=== PATIENT | male | born 1965 | race Caucasian/White ===

== ENCOUNTER 2016-12-30 15:13 | Emergency (ER) | payer MEDICAID ==
[2016-12-30 15:29] VITALS: BP 134/93
--- NOTE | 2016-12-30 16:15 | ED Physician Documentation ---
PD HPI UPPER EXT INJURY - Stated complaint Stated Complaint: R HAND INJ - Chief complaint Chief Complaint: Ext Problem - History obtained from History obtained from: Patient - History of Present Illness Location: Right, Hand Type of injury: Foreign body (he sat on wooden chair and the handle broke so his hand slid down and he got splinter into dorsal thenar area, got out a splinter but it stays tender and swollen, with some drainage now, so concerned about residual FB.) Where injury occurred: Other (friends house) Timing - onset: How many weeks ago (1) Timing - details: Abrupt onset, Still present Associated symptoms: Swelling, Other (some purulent drainage the past 1-2 days.) . No: Weakness, Numbness Recently seen: Not recently seen Review of Systems Constitutional: denies: Fever, Chills Neurologic: denies: Focal weakness, Numbness PD PAST MEDICAL HISTORY - Past Medical History Cardiovascular: Hypertension Respiratory: Asthma, Other Neuro: Seizure disorder Endocrine/Autoimmune: None GI: GERD, Other : Incontinence HEENT: Chronic sinusitis Psych: Depression, Anxiety, Bipolar disorder, Post traumatic stress disorder, Claustrophobia Musculoskeletal: Other Derm: Eczema, Rosacea - Past Surgical History Past Surgical History: Yes General: Hiatal hernia repair - Present Medications Home Medications: Ambulatory Orders Medication Instructions Recorded Confirmed Sertraline HCl [Zoloft] 50 mg PO DAILY 04/01/15 12/30/16 Indomethacin 25 mg PO DAILY 06/25/15 12/30/16 Albuterol Sulfate [Proair Hfa 2 puffs IH QID #1 hfa.aer.ad 07/17/15 12/30/16 Inhaler] Albuterol Sulfate [Ventolin Hfa] 18 gm IH Q4HR PRN #1 applic 10/29/15 12/30/16 Risperidone [Risperdal M-Tab] 0 mg DAILY 12/30/16 12/30/16 Sulfamethox/Trimeth 800/160 1 each PO BID #10 tablet 12/30/16 [Bactrim Ds 800/160] - Allergies Allergies/Adverse Reactions: Allergies Allergy/AdvReac Type Severity Reaction Status Date / Time No Known Drug Allergies Allergy Verified 12/30/16 15:29 - Social History Does the pt smoke?: No Smoking Status: Never smoker Does the pt drink ETOH?: Yes Does the pt have substance abuse?: Yes - Immunizations Immunizations are current?: No Immunizations: TDAP >10years/unknown - POLST Patient has POLST: No PD ED PE NORMAL - Vitals Vital signs reviewed: Yes - General General: Alert and oriented X 3, No acute distress, Well developed/nourished - Derm Derm: Normal color, Warm and dry - Extremities Extremities: Other (right dorsal thenar area with focal firm swelling c/w likely FB. There is small puncture hole with scant amount purulent drainage. Mild redness. The area of swelling is aobut 1.5x.4 cm.) - Neuro Neuro: No motor deficit, No sensory deficit Results - Vitals Vitals: Oxygen O2 Source Room air Procedures - FB removal FB location: Subcutaneous FB removal preparation: Local anesthesia-specify (lido and marcaine with epi.) Removal method: Irrigated/flushed, Foreceps, Incision FB removal aftercare: No complications, Patient tolerated well, Removed successfully (wooden chunk (better than a splinter).) Departure - Departure Disposition: 01 Home, Self Care Clinical Impression: Foreign body (FB) in soft tissue, Wound infection Condition: Stable Record reviewed to determine appropriate education?: Yes Instructions: ED Foreign Body Soft Tissue Removed Follow-Up: Domonique Chu ARNP [Primary Care Provider] - Prescriptions: Sulfamethox/Trimeth 800/160 [Bactrim Ds 800/160] 1 each PO BID #10 tablet Comments: Soak the hand in warm water couple times a day. Apply dressings. Do not put ointment on it so that it can drain if it wants to. Bactrim twice daily for 4- 5 days because of the infection. Recheck if not better over the next several days. Tylenol or ibuprofen if needed for pain. Discharge Date/Time: 12/30/16 17:16
[2016-12-30] MEDS ORDERED: SULFAMETH/TRIMETH DS 800/160 MG TABLET PO STA (17:05)
[2016-12-30] MEDS ORDERED: SULFAMETH/TRIMETH DS 800/160 MG TABLET PO ONE (17:13)
== END 2016-12-30 17:16 | disposition home or self-care (01) ==
LOC: ED 15:13
DX: S60.551A Superficial foreign body of right hand, initial encounter (principal); L08.9 Local infection of the skin and subcutaneous tissue, unspecified; W45.8XXA Other foreign body or object entering through skin, initial encounter; I10 Essential (primary) hypertension
CPT/HCPCS: 10120; 99283; A9270; 10060

== ENCOUNTER 2017-12-27 08:00 | Outpatient (CLI) | payer MEDICAID ==
[2017-12-27 19:31] LABS: BILIRUBIN,URINE NEGATIVE (NEGATIVE); GLUCOSE, URINE (UA) NEGATIVE (NEGATIVE); KETONES,URINE (UA) NEGATIVE (NEGATIVE); LEUKOCYTE ESTERASE, URINE MODERATE (NEGATIVE); NITRITE,URINE POSITIVE (NEGATIVE); OCCULT BLOOD,URINE TRACE-INTA (NEGATIVE); PH,URINE 6.5 PH (5.0-7.5); PROTEIN,URINE NEGATIVE (NEGATIVE); UROBILINOGEN,URINE 0.2 (NORMAL) E.U./dL (NORMAL)
[2017-12-27 19:33] LABS: CLARITY,URINE CLOUDY (CLEAR)
[2017-12-27 19:53] LABS: BACTERIA,URINE Moderate /HPF (None Seen); RBC,URINE 0-5 /HPF (0-5); SQUAMOUS EPITHELIAL CELL,UR NONE SEEN (<= Few); WBC CLUMPS,URINE PRESENT
== END 2017-12-27 08:01 | disposition home or self-care (01) ==
LOC: LAB.R 08:00
PROVIDERS: ATTEND Nurse Practitioner Family
DX: R32 Unspecified urinary incontinence (principal); N39.0 Urinary tract infection, site not specified
CPT/HCPCS: 81001; 87077; 87086; 87181

== ENCOUNTER 2018-08-24 10:27 | Outpatient (CLI) | payer MEDICAID | END 2018-08-24 10:28 | disposition home or self-care (01) | LOC: LAB.F 10:27 | PROVIDERS: ATTEND Urology | DX: R68.89 Other general symptoms and signs (principal); R39.12 Poor urinary stream; R39.9 Unspecified symptoms and signs involving the genitourinary system | CPT/HCPCS: 36415; 84153 ==

== ENCOUNTER 2019-01-23 13:01 | Outpatient (CLI) | payer MEDICAID ==
[2019-01-23 20:51] LABS: ALBUMIN 4.2 g/dL (3.2-5.5); ALBUMIN/GLOBULIN RATIO 1.6 (1.0-2.2); ALKALINE PHOSPHATASE 55 IU/L (42-121); ALT ALANINE AMINOTRANSFERASE 14 IU/L (10-60); AST ASPARTATE AMINOTRANSFERASE 15 IU/L (10-42); BILIRUBIN,TOTAL 1.2 mg/dL (0.2-1.0); BUN - BLOOD UREA NITROGEN 22 mg/dL (6-20); CALCIUM 9.1 mg/dL (8.5-10.3); CARBON DIOXIDE - CO2 29 mmol/L (21-32); CHLORIDE 106 mmol/L (101-111); CHOL/HDL RATIO 5.1 (<5.0); CHOLESTEROL 189 mg/dL; CREATININE 0.8 mg/dL (0.6-1.2); GFR - MDRD 100 (>89); GLUCOSE 113 mg/dL (70-100); HDL CHOLESTEROL 37 mg/dL; LDL CHOLESTEROL,CALCULATED 134 mg/dL; LDL/HDL RATIO 3.6 (<3.6); SODIUM 142 mmol/L (135-145); TOTAL PROTEIN 6.9 g/dL (6.7-8.2); URIC ACID 8.2 mg/dL (2.6-7.2); VLDL CHOLESTEROL 18 mg/dL
== END 2019-01-23 13:02 | disposition home or self-care (01) ==
LOC: LAB.S 13:01
PROVIDERS: ATTEND Internal Medicine
DX: Z00.00 Encounter for general adult medical examination without abnormal findings (principal); M10.9 Gout, unspecified
CPT/HCPCS: 36415; 80053; 80061; 83721; 84550

== ENCOUNTER 2020-05-10 12:59 | Outpatient (CLI) | payer OTHER, MEDICAID ==
--- NOTE | 2020-05-10 14:59 | XRAY Report ---
PROCEDURE: Hip w/Pelvis 1V RT INDICATIONS: HIP PAIN TECHNIQUE: AP pelvis with lateral view(s) of the right hip(s). COMPARISON: CT abdomen pelvis 06/07/2015 FINDINGS: Bones: No fractures or dislocations. Pelvic ring appears intact. No suspicious bony lesions. As i dentified on prior exam, there is severe joint space narrowing with subchondral sclerosis and periart icular lucencies within the right hip. Paratracheal or osteophytes are present. There is a remodeled appearance with flattening of the femoral head. Overall appearance is relatively stable compared to p rior exam. [id number] degenerative joint space narrowing is present within the left hip. Soft tissues: The visualized bowel gas pattern is normal. No suspicious soft tissue calcifications. IMPRESSION: 1. Remodeled appearance of the right femoral head suspected to be chronic with superimposed areas of severe degenerative change/avascular necrosis. Overall appearance is relatively stable compared to 20 16. Reviewed by: Yumiko Salgado MD on 05/10/2020 2:58 PM PST Approved by: Yumiko Salgado MD on 05/10/2020 2:58 PM PST Station ID: [id number]
--- NOTE | 2020-05-10 15:58 | XRAY Report ---
PROCEDURE: Hand 2 View RT INDICATIONS: HAND PAIN TECHNIQUE: 2 views of the hand(s) acquired. COMPARISON: None FINDINGS: Bones: No fractures or dislocations. No suspicious bony lesions. Moderate first DIP degenerative n arrowing is present. No visualized erosions. Minimal scattered PIP narrowing is present. Soft tissues: No suspicious soft tissue calcifications. IMPRESSION: Scattered IP degenerative narrowing with arthritis. No erosions. Reviewed by: Yumiko Salgado MD on 05/10/2020 3:57 PM PST Approved by: Yumiko Salgado MD on 05/10/2020 3:57 PM PST Station ID: [id number]
== END 2020-05-10 13:00 | disposition home or self-care (01) ==
LOC: DI 12:59
DX: M25.551 Pain in right hip (principal); M79.641 Pain in right hand; M19.041 Primary osteoarthritis, right hand

== ENCOUNTER 2020-12-26 13:35 | Outpatient (CLI) | payer MEDICAID ==
[2020-12-26 19:49] LABS: BASOPHILS % (AUTO) 0.5 %; EOSINOPHILS # (AUTO) 0.1 10^3/uL (0.0-0.7); EOSINOPHILS % (AUTO) 1.2 %; HCT - HEMATOCRIT 51.8 % (42.0-52.0); LYMPHOCYTES # (AUTO) 1.7 10^3/uL (1.5-3.5); LYMPHOCYTES % (AUTO) 21.6 %; MEAN CORPUSCULAR HEMOGLOBIN 31.3 pg (27.0-31.0); MEAN CORPUSCULAR HGB CONC 32.8 g/dL (32.0-36.0); MEAN CORPUSCULAR VOLUME 95.2 fL (80.0-94.0); MEAN PLATELET VOLUME 11.1 fL (7.4-11.4); MONOCYTES # (AUTO) 0.5 10^3/uL (0.0-1.0); MONOCYTES % (AUTO) 6.1 %; NEUTROPHILS # (AUTO) 5.4 10^3/uL (1.5-6.6); NEUTROPHILS % (AUTO) 70.2 %; PLT - PLATELET COUNT 202 10^3/uL (130-450); RED BLOOD COUNT 5.44 10^6/uL (4.70-6.10); RED CELL DISTRIBUTION WIDTH 12.6 % (12.0-15.0); WHITE BLOOD COUNT 7.7 x10^3/uL (4.8-10.8)
[2020-12-26 20:03] LABS: ALBUMIN 4.3 g/dL (3.2-5.5); ALBUMIN/GLOBULIN RATIO 1.5 (1.0-2.2); CALCIUM 9.2 mg/dL (8.5-10.3); CREATININE 1.1 mg/dL (0.6-1.2); TOTAL PROTEIN 7.2 g/dL (6.7-8.2)
== END 2020-12-26 13:36 | disposition home or self-care (01) ==
LOC: LAB.S 13:35
PROVIDERS: ATTEND Internal Medicine
DX: Z00.00 Encounter for general adult medical examination without abnormal findings (principal); Z12.5 Encounter for screening for malignant neoplasm of prostate
CPT/HCPCS: 36415; 80053; 84153; 85025

== ENCOUNTER 2021-11-28 10:55 | Outpatient (CLI) | payer MEDICAID ==
[2021-11-28 15:47] LABS: ALBUMIN 3.9 g/dL (3.2-5.5); ALBUMIN/GLOBULIN RATIO 1.2 (1.0-2.2); ALKALINE PHOSPHATASE 53 IU/L (42-121); ALT ALANINE AMINOTRANSFERASE 11 IU/L (10-60); AST ASPARTATE AMINOTRANSFERASE 16 IU/L (10-42); BILIRUBIN,TOTAL 0.7 mg/dL (0.2-1.0); BUN - BLOOD UREA NITROGEN 16 mg/dL (6-20); CARBON DIOXIDE - CO2 26 mmol/L (21-32); CHLORIDE 103 mmol/L (101-111); CHOL/HDL RATIO 5.7 (<5.0); CHOLESTEROL 232 mg/dL; CREATININE 0.9 mg/dL (0.6-1.2); GFR - MDRD 87 (>89); GLUCOSE 89 mg/dL (70-100); HDL CHOLESTEROL 41 mg/dL; LDL CHOLESTEROL,CALCULATED 165 mg/dL; POTASSIUM 4.3 mmol/L (3.5-5.0); SODIUM 137 mmol/L (135-145); TOTAL PROTEIN 7.1 g/dL (6.7-8.2); TRIGLYCERIDES 130 mg/dL; VLDL CHOLESTEROL 26 mg/dL
[2021-11-28 15:54] LABS: THYROID STIMULATING HORMONE 2.79 uIU/mL (0.34-5.60)
== END 2021-11-28 10:56 | disposition home or self-care (01) ==
LOC: LAB.S 10:55
PROVIDERS: ATTEND Registered Nurse
DX: Z79.899 Other long term (current) drug therapy (principal); Z13.220 Encounter for screening for lipoid disorders; Z12.5 Encounter for screening for malignant neoplasm of prostate; Z13.29 Encounter for screening for other suspected endocrine disorder
CPT/HCPCS: 36415; 80050; 80061; 83721; 84153

== ENCOUNTER 2023-04-19 08:00 | Outpatient (CLI) | payer MEDICAID | END 2023-04-19 23:59 | disposition home or self-care (01) | LOC: LAB.S 08:00 | PROVIDERS: ATTEND Emergency Medicine | DX: L02.415 Cutaneous abscess of right lower limb (principal) | CPT/HCPCS: 87070; 87077; 87181; 87205 ==

== ENCOUNTER 2023-04-26 09:51 | Outpatient (CLI) | payer MEDICAID | END 2023-04-26 23:59 | disposition left against medical advice (07) | LOC: EMS 09:51 | DX: L08.9 Local infection of the skin and subcutaneous tissue, unspecified (principal) ==

== ENCOUNTER 2023-07-18 22:35 | Outpatient (CLI) | payer MEDICAID | END 2023-07-18 23:59 | disposition critical access hospital (66) | LOC: EMS 22:35 | DX: M79.89 Other specified soft tissue disorders (principal); R23.8 Other skin changes; M79.662 Pain in left lower leg | CPT/HCPCS: A0425; A0429; A0999 ==

== ENCOUNTER 2023-07-18 23:07 | Emergency (ER) | payer MEDICAID ==
--- NOTE | 2023-07-18 23:45 | ED Physician Documentation ---
PD HPI SKIN - Stated complaint Stated Complaint: L LEG WOUND - Chief complaint Chief Complaint: Ext Problem - History obtained from History obtained from: Patient - Additional information Additional information: Patient is a 58-year-old male presenting for evaluation of a wound to the back of his left leg that he has noticed for the last month. The patient states that he has not had time to come get it evaluated before tonight. 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 He tells me about staying at the [facility] and eating [employer] with his cousin. He denies any fever. He is unsure of how he got the wound. He denies any significant worsening tonight. He did last see his primary care doctor 3 months ago. He reports having swelling always in the left leg which is unchanged today. He did previously have a wound to the anterior of the same leg which was treated with antibiotics back in March and that did heal.Denies fever, falls. Denies history of diabetes. Review of Systems Constitutional: denies: Fever Cardiac: denies: Chest pain / pressure Respiratory: denies: Dyspnea GI: denies: Abdominal Pain Skin: reports: Lesions Musculoskeletal: reports: Extremity swelling PD PAST MEDICAL HISTORY - Past Medical History Cardiovascular: Hypertension Respiratory: Asthma, Other Endocrine/Autoimmune: None GI: GERD, Other : Incontinence HEENT: Chronic sinusitis Psych: Depression, Anxiety, Bipolar disorder, Post traumatic stress disorder, Claustrophobia Musculoskeletal: Other Derm: Eczema, Rosacea - Past Surgical History Past Surgical History: Yes General: Hiatal hernia repair - Present Medications Home Medications: Ambulatory Orders Medication Instructions Recorded Confirmed Sertraline HCl [Zoloft] 50 mg PO DAILY 04/01/15 12/30/16 Indomethacin 25 mg PO DAILY 06/25/15 12/30/16 Albuterol Sulfate [Proair Hfa 2 puffs IH QID #1 hfa.aer.ad 07/17/15 12/30/16 Inhaler] Albuterol Sulfate [Ventolin Hfa] 18 gm IH Q4HR PRN #1 applic 10/29/15 12/30/16 Sulfamethox/Trimeth 800/160 1 each PO BID #10 tablet 12/30/16 [Bactrim Ds 800/160] risperiDONE [Risperdal M-Tab] 0 mg DAILY 12/30/16 12/30/16 Sulfamethox/Trimeth 800/160 1 each PO BID #14 tablet 07/18/23 [Bactrim Ds 800/160] cephALEXin [Keflex] 500 mg PO Q6H #28 cap 07/18/23 - Allergies Allergies/Adverse Reactions: Allergies Allergy/AdvReac Type Severity Reaction Status Date / Time No Known Drug Allergies Allergy Verified 07/18/23 23:14 - Social History Does the pt smoke?: No Smoking Status: Never smoker Does the pt drink ETOH?: Yes Does the pt have substance abuse?: Yes Substance Use and Type: Marijuana - Immunizations Immunizations are current?: No Immunizations: TDAP >10years/unknown - POLST Patient has POLST: No PD ED PE NORMAL - General General: Alert and oriented X 3, No acute distress, Well developed/nourished - HEENT HEENT: Atraumatic - Neck Neck: Supple, no meningeal sign - Cardiac Cardiac: RRR, Strong equal pulses - Respiratory Respiratory: No respiratory distress, Clear bilaterally - Derm Derm: Warm and dry - Extremities Extremities: Other (Bilateral lower extremity swelling, left greater than right which patient states is chronic for him; Venous stasis changes bilaterally, 1 cm circular and shallow ulceration to left posterior calf with surrounding erythema; No fluctuance) - Neuro Neuro: Alert and oriented X 3, No motor deficit, No sensory deficit, Normal speech Results - Vitals Vitals: Vital Signs - 24 hr 07/18/23 07/18/23 07/18/23 23:10 23:19 23:56 Temperature 36.4 C L 36.5 C 36.5 C Heart Rate 99 99 88 Respiratory 20 20 18 Rate Blood Pressure 163/94 H 163/94 H 150/88 H O2 Saturation 94 94 96 Oxygen O2 Source Room air PD Medical Decision Making - ED course ED course: Patient presenting for evaluation of wound to the left posterior calf that has been present for at least a month. Has a superficial ulceration with findings concerning for infection. Patient is otherwise well-appearing denies any worsening or recently but that this evening was convenient for him which is why he presented to the emergency department. Vital signs are stable he does not appear septic. Wound culture was obtained. No signs of abscess. Will start patient on Bactrim and Keflex. Patient states that swelling in his leg is unchanged and that this has been chronic for him. Understands importance of close follow-up with primary care provider as well as concerning symptoms to return for. Departure - Departure Disposition: 01 Home, Self Care Clinical Impression: Leg wound, left Condition: Stable Instructions: ED Infec Skin Cellulitis Prescriptions: Sulfamethox/Trimeth 800/160 [Bactrim Ds 800/160] 1 each PO BID #14 tablet cephALEXin [Keflex] 500 mg PO Q6H #28 cap Comments: The wound on your left leg appears to have an infection. We have sent a culture and I am starting you on 2 antibiotics. We will notify you if you need to take any different antibiotics. I would recommend close follow-up with your primary care doctor to make sure that this is healing. You may need further therapies such as referral to the wound care clinic. Return to the ER with any worsening such as increased swelling or pain, fevers or any other concerns. I have sent your prescriptions to [facility] in [place]. Forms: PCP List Discharge Date/Time: 07/18/23 23:56
[2023-07-18] MEDS: SULFAMETH/TRIMETH DS 800/160 MG TABLET PO STA (23:54)
[2023-07-18] MEDS: cephALEXin 250 MG CAPSULE PO STA (23:54)
[2023-07-19 00:12] VITALS: BP 150/88; O2SAT 96
== END 2023-07-18 23:56 | disposition home or self-care (01) ==
LOC: EDUNIT# → ED 23:07
DX: L97.829 Non-pressure chronic ulcer of other part of left lower leg with unspecified severity (principal); I10 Essential (primary) hypertension; J45.909 Unspecified asthma, uncomplicated; Z79.899 Other long term (current) drug therapy
CPT/HCPCS: 87070; 87205; 99283; 99284; A9270

== ENCOUNTER 2023-07-26 04:56 | Outpatient (CLI) | payer MEDICAID | END 2023-07-26 23:59 | disposition left against medical advice (07) | LOC: EMS 04:56 | DX: L03.116 Cellulitis of left lower limb (principal) ==

== ENCOUNTER 2023-07-26 05:45 | Outpatient (CLI) | payer MEDICAID | END 2023-07-26 23:59 | disposition critical access hospital (66) | LOC: EMS 05:45 | DX: L03.116 Cellulitis of left lower limb (principal) | CPT/HCPCS: A0425; A0429; A0999 ==

== ENCOUNTER 2023-07-26 06:22 | Emergency (ER) | payer MEDICAID ==
--- NOTE | 2023-07-26 06:32 | ED Physician Documentation ---
PD HPI WOUND RECHECK - Stated complaint Stated Complaint: L LEG WOUND - Histroy obtained from History obtained from: Patient - Additional information Additional information: Patient is a 58-year-old male presenting for reevaluation of a wound to his left leg. Wound has been there for at least a month and he was seen by myself in the emergency department on July 17. At that time a culture was obtained and he was discharged on Bactrim and Keflex. Based on the culture results, the plan was to change his antibiotic to penicillin and he was called 4 days ago to tell him to stop taking the other 2 antibiotics and prescribed penicillin. He did brain picker this prescription but then had trepidation about taking the antibiotic as a caregiver of a neighbor told him he should not take this antibiotic if he had been drinking. Patient states that they had already had a few beers and so did not want to take the antibiotic. Patient states he is unclear as to why his antibiotic was changed because he felt like his wound was getting better while he was on the 2 antibiotics. He denies any worsening in the wound today. He denies fever. Review of Systems Constitutional: denies: Fever Cardiac: denies: Chest pain / pressure Respiratory: denies: Dyspnea Skin: reports: Other (Left leg wound) PD PAST MEDICAL HISTORY - Past Medical History Cardiovascular: Hypertension Respiratory: Asthma, Other Endocrine/Autoimmune: None GI: GERD, Other : Incontinence HEENT: Chronic sinusitis Psych: Depression, Anxiety, Bipolar disorder, Post traumatic stress disorder, Claustrophobia Musculoskeletal: Other Derm: Eczema, Rosacea - Past Surgical History Past Surgical History: Yes General: Hiatal hernia repair - Present Medications Home Medications: Ambulatory Orders Medication Instructions Recorded Confirmed Sertraline HCl [Zoloft] 50 mg PO DAILY 04/01/15 12/30/16 Indomethacin 25 mg PO DAILY 06/25/15 12/30/16 Albuterol Sulfate [Proair Hfa 2 puffs IH QID #1 hfa.aer.ad 07/17/15 12/30/16 Inhaler] Albuterol Sulfate [Ventolin Hfa] 18 gm IH Q4HR PRN #1 applic 10/29/15 12/30/16 Sulfamethox/Trimeth 800/160 1 each PO BID #10 tablet 12/30/16 [Bactrim Ds 800/160] risperiDONE [Risperdal M-Tab] 0 mg DAILY 12/30/16 12/30/16 Sulfamethox/Trimeth 800/160 1 each PO BID #14 tablet 07/18/23 [Bactrim Ds 800/160] cephALEXin [Keflex] 500 mg PO Q6H #28 cap 07/18/23 Penicillin V Potassium 500 mg PO Q6HR #40 tablet 07/21/23 - Allergies Allergies/Adverse Reactions: Allergies Allergy/AdvReac Type Severity Reaction Status Date / Time No Known Drug Allergies Allergy Verified 07/26/23 06:25 - Social History Does the pt smoke?: No Smoking Status: Never smoker Does the pt drink ETOH?: Yes Does the pt have substance abuse?: Yes - Immunizations Immunizations are current?: No Immunizations: TDAP >10years/unknown - POLST Patient has POLST: No PD ED PE NORMAL - General General: Alert and oriented X 3, No acute distress, Well developed/nourished - HEENT HEENT: Atraumatic - Cardiac Cardiac: Strong equal pulses - Respiratory Respiratory: No respiratory distress - Extremities Extremities: Other (B/l lower extremity swelling, left slightly greater than right which patient states is chronic for him and is unchanged from when I previously saw the patient. Venous stasis changes bilaterally, 1 cm circular shallow ulceration to posterior left calf with mild surrounding erythema. No fluctuance) - Neuro Neuro: Alert and oriented X 3, Normal speech, Other (Steady gait with cane) Results - Vitals Vitals: Vital Signs - 24 hr 07/26/23 07/26/23 06:25 06:49 Temperature 36.2 C L Heart Rate 101 H 99 Respiratory 20 18 Rate Blood Pressure 149/91 H 129/82 H O2 Saturation 94 94 Oxygen O2 Source Room air PD Medical Decision Making - ED course ED course: Patient is a 58-year-old male presenting for reevaluation of a wound to his left leg. Patient was previously evaluated by myself approximately 8 days ago. At this time the wound appears improved But still with some surrounding erythema suggesting ongoing infection. Throat no findings of abscess. He took a few days of Bactrim and Keflex but then received a phone call to change the antibiotic to penicillin. He then stopped taking Bactrim and Keflex but did not start the penicillin as he was told he should not take this antibiotic if he had been drinking and he had had a few beers that day. He also states he was on sure of why his antibiotic was changed. I did go over his culture results with him and why we were changing his antibiotic. He patient now seems understanding of the plan to start taking the penicillin and to complete the course of this. He has the penicillin with him and will take a dose right now. Patient advised on need for continued follow-up with primary care or walk-in clinic and also advised on worsening symptoms to return for. Departure - Departure Disposition: 01 Home, Self Care Clinical Impression: Leg wound, left Condition: Stable Instructions: ED Infec Skin Cellulitis, ED Ulcer Venous Leg Comments: Brodie - the wound on your leg is starting to look better but the infection has not completely cleared. Please take the Penicillin that was prescribed to you and make sure you complete the whole course of the antibiotic. Please continue to keep the wound clean and dry. I would also recommend follow-up with the walk-in clinic or with your primary care for follow-up. Please return to the emergency department if you feel the wound is getting worse, are not tolerating the antibiotic, have fevers or have any other concerns. Forms: PCP List Discharge Date/Time: 07/26/23 06:58
[2023-07-26] MEDS: BACITRACIN ZINC OINT 1 PACKET TOP STA (06:37)
[2023-07-26 06:39] VITALS: O2SAT 94
[2023-07-26 07:00] VITALS: BP 129/82
== END 2023-07-26 06:58 | disposition home or self-care (01) ==
LOC: EDUNIT# → ED 06:22
DX: S81.802A Unspecified open wound, left lower leg, initial encounter (principal); X58.XXXA Exposure to other specified factors, initial encounter; I10 Essential (primary) hypertension; Z79.899 Other long term (current) drug therapy
CPT/HCPCS: 99283; A9270

== ENCOUNTER 2023-07-30 13:56 | Outpatient (CLI) | payer MEDICAID | END 2023-07-30 23:59 | disposition critical access hospital (66) | LOC: EMS 13:56 | DX: R07.1 Chest pain on breathing (principal); M25.511 Pain in right shoulder; S29.9XXA Unspecified injury of thorax, initial encounter; W17.89XA Other fall from one level to another, initial encounter; Y92.818 Other transport vehicle as the place of occurrence of the external cause; F10.90 Alcohol use, unspecified, uncomplicated; R09.02 Hypoxemia | CPT/HCPCS: A0425; A0427; A0999 ==

== ENCOUNTER 2023-07-30 14:28 | Emergency (ER) | payer MEDICAID ==
[2023-07-30 15:08] LABS: ALBUMIN 3.5 g/dL (3.2-5.5); ALBUMIN/GLOBULIN RATIO 1.3 (1.0-2.2); BILIRUBIN,TOTAL 0.6 mg/dL (0.2-1.0); CALCIUM 8.7 mg/dL (8.5-10.3); CREATININE 0.6 mg/dL (0.6-1.3); POTASSIUM 3.7 mmol/L (3.5-4.5); TOTAL PROTEIN 6.1 g/dL (6.4-8.9)
[2023-07-30] MEDS: MORPHINE 2 MG/ML CARPUJECT IVP STA (15:08)
[2023-07-30 15:10] LABS: BASOPHILS % (AUTO) 0.3 %; EOSINOPHILS % (AUTO) 0.5 %; HCT - HEMATOCRIT 44.3 % (42.0-52.0); HGB - HEMOGLOBIN 14.7 g/dL (14.0-18.0); LYMPHOCYTES # (AUTO) 0.7 10^3/uL (1.5-3.5); MEAN CORPUSCULAR HEMOGLOBIN 37.1 pg (27.0-31.0); MEAN CORPUSCULAR HGB CONC 33.2 g/dL (32.0-36.0); MEAN CORPUSCULAR VOLUME 111.9 fL (80.0-94.0); MEAN PLATELET VOLUME 9.7 fL (7.4-11.4); MONOCYTES # (AUTO) 0.5 10^3/uL (0.0-1.0); MONOCYTES % (AUTO) 8.1 %; NEUTROPHILS # (AUTO) 5.2 10^3/uL (1.5-6.6); NEUTROPHILS % (AUTO) 79.8 %; PLT - PLATELET COUNT 174 10^3/uL (130-450); RED BLOOD COUNT 3.96 10^6/uL (4.70-6.10); RED CELL DISTRIBUTION WIDTH 12.5 % (12.0-15.0); WHITE BLOOD COUNT 6.6 x10^3/uL (4.8-10.8)
[2023-07-30 15:41] VITALS: O2SAT 94
--- NOTE | 2023-07-30 15:43 | CT Report ---
PROCEDURE: Head WO INDICATIONS: fall, head injury TECHNIQUE: Noncontrast 4.5 mm thick angled axial sections acquired from the foramen magnum to the vertex. For r adiation dose reduction, the following was used: automated exposure control, adjustment of mA and/or kV according to patient size. COMPARISON: 07/06/2014. FINDINGS: Image quality: Excellent. CSF spaces: Basal cisterns are patent. No extra-axial fluid collections. Ventricles are normal in size and shape. Brain: No midline shift. No intracranial masses or hemorrhage. Sanabria-white matter interface is norm al. Skull and face: Calvarium and visualized facial bones are intact, without suspicious lesions. Sinuses: Visualized sinuses and mastoids are clear. IMPRESSION: No acute intracranial pathology. Reviewed by: Earnest Shearer MD on 07/30/2023 3:41 PM PDT Approved by: Earnest Shearer MD on 07/30/2023 3:41 PM PDT Station ID: [id number]
--- NOTE | 2023-07-30 15:45 | CT Report ---
PROCEDURE: Cervical Spine WO INDICATIONS: fall, neck pain TECHNIQUE: Noncontrast 3 mm thick sections acquired from the skull base to the T4 level. Sagittal and coronal r eformats were then constructed. For radiation dose reduction, the following was used: automated exp osure control, adjustment of mA and/or kV according to patient size. COMPARISON: Cervical spine radiograph dated 07/10/2015. FINDINGS: Image quality: Excellent. Bones: No fractures or dislocations. Loss of disc height and degenerative endplate changes are noted at C4-5, C5-6 and C6-7 levels with dorsal disc osteophyte complex formation causing mild to moderate central canal stenosis and bilateral neural foraminal narrowing most notably at C6-7 level. Visualiz ed superior ribs are intact. Soft tissues: Prevertebral soft tissues are normal in thickness. No paravertebral hematomas. No ap ical pneumothoraces. IMPRESSION: No acute, displaced fracture or traumatic subluxation. Degenerative disc disease throughout cervical spine as above. Reviewed by: Kasi Jones MD on 07/30/2023 3:43 PM PDT Approved by: Kasi Jones MD on 07/30/2023 3:43 PM PDT Station ID: [id number]
[2023-07-30 15:48] LABS: PLATELET ESTIMATE, MANUAL NORMAL (130-450,000) (NORMAL); PLATELET MORPHOLOGY NORMAL APPEARANCE (NORMAL); RBC MORPHOLOGY (MULTIPLE) 2+ MACROCYTOSIS (NORMAL); SLIDE REVIEW? Indicated
--- NOTE | 2023-07-30 15:57 | CT Report ---
PROCEDURE: Chest WO INDICATIONS: fall, R post rib pain TECHNIQUE: A CT scan of the chest was performed. Intravenous contrast media was not administered. Images were re corded and evaluated at appropriate window settings. Reformats: axial MIP of the chest, coronal and s agittal. For radiation dose reduction, the following was used: automated exposure control, adjustment of mA and/or kV according to patient size. COMPARISON: CT of abdomen and pelvis dated 06/07/2015 and chest radiograph dated 07/06/2014. FINDINGS: Image quality: Diagnostic. Chest wall and lower neck: No thyroid nodule which requires sonographic follow up. No axillary or sup raclavicular adenopathy by size. Lungs and pleura: Diffuse scattered bullae are noted in anterolateral aspect of right upper lobe and posterior medial aspect of right lower lobe. Dependent atelectasis/contusion along posterior aspect o f left upper and lower lobe is seen. Scattered atelectasis in periphery of left lung field is also se en. No pneumothorax. No pleural effusion. 1.2 x 0.9 cm oval nodule adjacent to posterior medial pleur a of left lung base is seen series 5 image 87. Mediastinum: Heart size is mildly enlarged. No pericardial effusion. 3 vessel coronary artery atheros clerotic calcifications are seen. No large vessel abnormality. No mediastinal adenopathy by size crit eria. Small hiatal hernia. Bones: No aggressive osseous abnormality. Slightly displaced fractures involving right posterior late ral third through 10th rib is seen. Old healed left posterior lateral sixth, seventh, and ninth rib f ractures also seen with chronic-appearing deformity. Upper Abdomen: Moderate to severe hepatic steatosis.. IMPRESSION: 1. Slightly displaced fractures involving right posterior lateral third through 10th ribs. Old healed left posterior lateral rib fractures as above. 2. Contusion and atelectasis along posterior aspect of right upper and lower lobes. No pneumothorax. Small bullae are seen scattered in periphery of right upper to midlung field. 1.2 x 0.9 cm solid nodu le adjacent to posterior medial pleura of left lung base new since 2016 study. A short-term CT chest follow-up is recommended. 3. No mediastinal or hilar lymphadenopathy. No mediastinal hematoma. Cardiomegaly, no pericardial eff usion. Moderate coronary artery atherosclerotic disease. Reviewed by: Kasi Jones MD on 07/30/2023 3:56 PM PDT Approved by: Kasi Jones MD on 07/30/2023 3:56 PM PDT Station ID: [id number]
--- NOTE | 2023-07-30 16:33 | ED Physician Documentation ---
History of Present Illness - Stated complaint Stated Complaint: FALL/R RIB PX - Chief complaint Chief Complaint: Trauma Ch/Bk - History obtained from History obtained from: Patient, EMS - History of Present Illness Timing: Today Pain level max: 10 Pain level now: 10 - Additonal information Additional information: 58-year-old male states that he was drinking on his porch today when he fell off of the porch landed on his right ribs. Complains of severe right rib pain. He states he did strike his head and believes he lost consciousness. No neck or back pain. No abdominal pain. No pain in the arms or legs. No hip pain. Received fentanyl with EMS. Not on blood thinners. Review of Systems Constitutional: denies: Fever, Chills Throat: denies: Sore throat Cardiac: denies: Palpitations Respiratory: denies: Cough, Wheezing GI: denies: Abdominal Pain, Nausea, Vomiting, Diarrhea : denies: Dysuria Skin: denies: Rash Musculoskeletal: denies: Neck pain, Back pain Neurologic: reports: LOC. denies: Focal weakness, Numbness, Confused, Altered mental status PD PAST MEDICAL HISTORY - Past Medical History Past Medical History: Yes Cardiovascular: Hypertension Respiratory: Asthma, Other Endocrine/Autoimmune: None GI: GERD, Other : Incontinence HEENT: Chronic sinusitis Psych: Depression, Anxiety, Bipolar disorder, Post traumatic stress disorder, Claustrophobia Musculoskeletal: Other Derm: Eczema, Rosacea - Past Surgical History Past Surgical History: Yes General: Hiatal hernia repair - Present Medications Home Medications: Ambulatory Orders Medication Instructions Recorded Confirmed Sertraline HCl [Zoloft] 50 mg PO DAILY 04/01/15 12/30/16 Indomethacin 25 mg PO DAILY 06/25/15 12/30/16 Albuterol Sulfate [Proair Hfa 2 puffs IH QID #1 hfa.aer.ad 07/17/15 12/30/16 Inhaler] Albuterol Sulfate [Ventolin Hfa] 18 gm IH Q4HR PRN #1 applic 10/29/15 12/30/16 Sulfamethox/Trimeth 800/160 1 each PO BID #10 tablet 12/30/16 [Bactrim Ds 800/160] risperiDONE [Risperdal M-Tab] 0 mg DAILY 12/30/16 12/30/16 Sulfamethox/Trimeth 800/160 1 each PO BID #14 tablet 07/18/23 [Bactrim Ds 800/160] cephALEXin [Keflex] 500 mg PO Q6H #28 cap 07/18/23 Penicillin V Potassium 500 mg PO Q6HR #40 tablet 07/21/23 - Allergies Allergies/Adverse Reactions: Allergies Allergy/AdvReac Type Severity Reaction Status Date / Time No Known Drug Allergies Allergy Verified 07/30/23 14:51 - Social History Does the pt smoke?: No Smoking Status: Never smoker Does the pt drink ETOH?: Yes Does the pt have substance abuse?: Yes - Immunizations Immunizations are current?: No Immunizations: TDAP >10years/unknown - POLST Patient has POLST: No PD ED PE NORMAL - Vitals Vital signs reviewed: Yes - General General: Alert and oriented X 3, No acute distress, Other (Intoxicated) - HEENT HEENT: Atraumatic, PERRL, Moist mucous membranes - Neck Neck: Supple, no meningeal sign - Cardiac Cardiac: RRR, Strong equal pulses - Respiratory Respiratory: No respiratory distress, Clear bilaterally, Other (Tender to palpation diffusely over the posterior right ribs. No ecchymosis. No crepitus) - Abdomen Abdomen: Soft, Non tender, Non distended - Back Back: No spinal TTP (No midline tenderness to palpation over the thoracic or lumbar spine.) - Derm Derm: Warm and dry - Extremities Extremities: No deformity, No tenderness to palpate, Normal ROM s pain - Neuro Neuro: Alert and oriented X 3, manager building 2-12 intact, No motor deficit, No sensory deficit, Normal speech Eye Opening: Spontaneous Motor: Obeys Commands Verbal: Oriented GCS Score: 15 - Psych Psych: Normal mood, Normal affect Results - Vitals Vitals: Vital Signs - 24 hr 07/30/23 07/30/23 07/30/23 14:41 14:51 15:37 Temperature 36.2 C L Heart Rate 84 88 80 Respiratory 16 18 18 Rate Blood Pressure 110/66 110/66 O2 Saturation 84 L 92 94 If not protocol 2 : Oxygen Flow, liters/minute 07/30/23 16:30 Temperature Heart Rate 89 Respiratory 18 Rate Blood Pressure 130/87 H O2 Saturation 94 If not protocol 2 : Oxygen Flow, liters/minute Oxygen O2 Source Nasal cannula - Labs Labs: Laboratory Tests 07/30/23 07/30/23 14:49 14:49 WBC 6.6 RBC 3.96 L Hgb 14.7 Hct 44.3 MCV 111.9 H MCH 37.1 H MCHC 33.2 RDW 12.5 Plt Count 174 MPV 9.7 Neut # (Auto) 5.2 Lymph # (Auto) 0.7 L [place] # (Auto) 0.5 Eos # (Auto) 0.0 Baso # (Auto) 0.0 Absolute Nucleated RBC 0.00 Nucleated RBC % 0.0 Manual Slide Review Indicated Platelet Estimate NORMAL (130-450,000) Platelet Morphology NORMAL APPEARANCE RBC Morph Micro Appear 2+ MACROCYTOSIS Sodium 137 Potassium 3.7 Chloride 97 L Carbon Dioxide 32 Anion Gap 8.0 BUN 7 Creatinine 0.6 Estimated GFR (MDRD) 137 Glucose 109 H Calcium 8.7 Total Bilirubin 0.6 AST 88 H ALT 41 Alkaline Phosphatase 74 Total Protein 6.1 L Albumin 3.5 Globulin 2.6 Albumin/Globulin Ratio 1.3 Lipase 78 Ethyl Alcohol 256.0 - Rads (name of study) Head CT Relevant Findings:: Final report received, See rad report Cervical spine CT Relevant Findings:: Final report received, See rad report Chest CT Relevant Findings:: Final report received, See rad report PD Medical Decision Making - ED course Complexity details: reviewed results, re-evaluated patient, considered differential, d/w patient ED course: 58-year-old male status post a fall off of his porch today. Noted to have right-sided rib fractures, posterior lateral, ribs 3 through 10. Has associated pulmonary contusion as well. He is hypoxic down to 84% on room air. Placed on 2 L of oxygen. Given morphine for pain. Discussed the case with Dr. Hanks, [facility] emergency department who accepts in transfer. COBRA forms completed. Patient will be transferred for further care. No acute findings on head CT or cervical spine CT. No significant lab abnormalities other than his elevated alcohol level. EXAM: [id number] CT/CHTWO ([id number]) PROCEDURE: Chest WO INDICATIONS: fall, R post rib pain TECHNIQUE: A CT scan of the chest was performed. Intravenous contrast media was not administered. Images were recorded and evaluated at appropriate window settings. Reformats: axial MIP of the chest, coronal and sagittal. For radiation dose reduction, the following was used: automated exposure control, adjustment of mA and/or kV according to patient size. COMPARISON: CT of abdomen and pelvis dated 06/07/2015 and chest radiograph dated 07/06/2014. FINDINGS: Image quality: Diagnostic. Chest wall and lower neck: No thyroid nodule which requires sonographic follow up. No axillary or supraclavicular adenopathy by size. Lungs and pleura: Diffuse scattered bullae are noted in anterolateral aspect of right upper lobe and posterior medial aspect of right lower lobe. Dependent atelectasis/contusion along posterior aspect of left upper and lower lobe is seen. Scattered atelectasis in periphery of left lung field is also seen. No pneumothorax. No pleural effusion. 1.2 x 0.9 cm oval nodule adjacent to posterior medial pleura of left lung base is seen series 5 image 87. Mediastinum: Heart size is mildly enlarged. No pericardial effusion. 3 vessel coronary artery atherosclerotic calcifications are seen. No large vessel abnormality. No mediastinal adenopathy by size criteria. Small hiatal hernia. Bones: No aggressive osseous abnormality. Slightly displaced fractures involving right posterior lateral third through 10th rib is seen. Old healed left posterior lateral sixth, seventh, and ninth rib fractures also seen with chronic-appearing deformity. Upper Abdomen: Moderate to severe hepatic steatosis.. IMPRESSION: 1. Slightly displaced fractures involving right posterior lateral third through 10th ribs. Old healed left posterior lateral rib fractures as above. 2. Contusion and atelectasis along posterior aspect of right upper and lower lobes. No pneumothorax. Small bullae are seen scattered in periphery of right upper to midlung field. 1.2 x 0.9 cm solid nodule adjacent to posterior medial pleura of left lung base new since 2016 study. A short-term CT chest follow-up is recommended. 3. No mediastinal or hilar lymphadenopathy. No mediastinal hematoma. Cardiomegaly, no pericardial effusion. Moderate coronary artery atherosclerotic disease. EXAM: [id number] CT/CSPWO ([id number]) PROCEDURE: Cervical Spine WO INDICATIONS: fall, neck pain TECHNIQUE: Noncontrast 3 mm thick sections acquired from the skull base to the T4 level. Sagittal and coronal reformats were then constructed. For radiation dose reduction, the following was used: automated exposure control, adjustment of mA and/or kV according to patient size. COMPARISON: Cervical spine radiograph dated 07/10/2015. FINDINGS: Image quality: Excellent. Bones: No fractures or dislocations. Loss of disc height and degenerative endplate changes are noted at C4-5, C5-6 and C6-7 levels with dorsal disc osteophyte complex formation causing mild to moderate central canal stenosis and bilateral neural foraminal narrowing most notably at C6-7 level. Visualized superior ribs are intact. Soft tissues: Prevertebral soft tissues are normal in thickness. No paravertebral hematomas. No apical pneumothoraces. IMPRESSION: No acute, displaced fracture or traumatic subluxation. Degenerative disc disease throughout cervical spine as above. EXAM: [id number] CT/HEADWO ([id number]) PROCEDURE: Head WO INDICATIONS: fall, head injury TECHNIQUE: Noncontrast 4.5 mm thick angled axial sections acquired from the foramen magnum to the vertex. For radiation dose reduction, the following was used: automated exposure control, adjustment of mA and/or kV according to patient size. COMPARISON: 07/06/2014. FINDINGS: Image quality: Excellent. CSF spaces: Basal cisterns are patent. No extra-axial fluid collections. Ventr icles are normal in size and shape. Brain: No midline shift. No intracranial masses or hemorrhage. [place]-white matter interface is normal. Skull and face: Calvarium and visualized facial bones are intact, without suspicious lesions. Sinuses: Visualized sinuses and mastoids are clear. IMPRESSION: No acute intracranial pathology. Departure - Departure Disposition: 02 Transfer Acute Care Hosp Clinical Impression: Multiple rib fractures involving four or more ribs, Hypoxia Pulmonary contusion Qualifiers: Encounter type: initial encounter Laterality: right Qualified Code(s): S27.321A - Contusion of lung, unilateral, initial encounter Condition: Stable Forms: PCP List
[2023-07-30 18:11] VITALS: BP 128/60
== END 2023-07-30 18:18 | disposition short-term general hospital (02) ==
LOC: EDUNIT# → ED 14:28 → SUPCPDRO 14:28 → ED 18:18
DX: S22.41XA Multiple fractures of ribs, right side, initial encounter for closed fracture (principal); S27.321A Contusion of lung, unilateral, initial encounter; W17.89XA Other fall from one level to another, initial encounter; Y93.89 Activity, other specified; Y92.008 Other place in unspecified non-institutional (private) residence as the place of occurrence of the external cause; R09.02 Hypoxemia
CPT/HCPCS: 36415; 80053; 82077; 83690; 85025; 96374; 99285

== ENCOUNTER 2023-08-13 10:42 | Outpatient (CLI) | payer MEDICAID | END 2023-08-13 23:59 | disposition critical access hospital (66) | LOC: EMS 10:42 | DX: M79.662 Pain in left lower leg (principal); M79.89 Other specified soft tissue disorders | CPT/HCPCS: A0425; A0429; A0999 ==

== ENCOUNTER 2023-08-13 11:11 | Emergency (ER) | payer MEDICAID ==
--- NOTE | 2023-08-13 11:21 | ED Physician Documentation ---
PD HPI SKIN - Stated complaint Stated Complaint: LEG INFECTION - Additional information Additional information: 58-year-old male recently here for rib fractures 3 through 10 he fell off his porch after binge drinking alcohol. He was sent to [facility] for further hospitalization. This happened 07/30/2023. Patient says that during the fall he had an injury to his left lower extremity with a superficial abrasion and a wound that is having some delayed healing. 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 He denies any history of type 2 diabetes no recent fevers or chills no nausea vomiting. PD PAST MEDICAL HISTORY - Past Medical History Cardiovascular: Hypertension Respiratory: Asthma, Other Endocrine/Autoimmune: None GI: GERD, Other : Incontinence HEENT: Chronic sinusitis Psych: Depression, Anxiety, Bipolar disorder, Post traumatic stress disorder, Claustrophobia Musculoskeletal: Other Derm: Eczema, Rosacea - Past Surgical History Past Surgical History: Yes General: Hiatal hernia repair - Present Medications Home Medications: Ambulatory Orders Medication Instructions Recorded Confirmed Sertraline HCl [Zoloft] 50 mg PO DAILY 04/01/15 08/13/23 Indomethacin 25 mg PO DAILY 06/25/15 08/13/23 Albuterol Sulfate [Proair Hfa 2 puffs IH QID #1 hfa.aer.ad 07/17/15 08/13/23 Inhaler] Albuterol Sulfate [Ventolin Hfa] 18 gm IH Q4HR PRN #1 applic 10/29/15 08/13/23 risperiDONE [Risperdal M-Tab] 0 mg DAILY 12/30/16 08/13/23 Penicillin V Potassium 500 mg PO Q6HR #40 tablet 07/21/23 08/13/23 - Allergies Allergies/Adverse Reactions: Allergies Allergy/AdvReac Type Severity Reaction Status Date / Time No Known Drug Allergies Allergy Verified 08/13/23 11:24 - Social History Does the pt smoke?: No Smoking Status: Never smoker Does the pt drink ETOH?: Yes Does the pt have substance abuse?: Yes - Immunizations Immunizations are current?: No Immunizations: TDAP >10years/unknown - POLST Patient has POLST: No PD ED PE NORMAL - Vitals Vital signs reviewed: Yes - General General: Alert and oriented X 3, No acute distress, Well developed/nourished, Other (Obesity) - Derm Derm: Other (Callused scab to the posterior left calf. No signs of infection no erythema no purulent drainage. Left lower extremity does not appear to have any erythema spreading up the leg) - Extremities Extremities: Other. No: No edema (Bilateral 3+ pitting edema.) Results - Vitals Vitals: Vital Signs - 24 hr 08/13/23 08/13/23 11:20 12:10 Temperature 36.7 C 36.7 C Heart Rate 116 H 100 Respiratory 20 21 Rate Blood Pressure 192/107 H 147/107 H O2 Saturation 97 97 Oxygen O2 Source Room air PD Medical Decision Making - ED course ED course: 58-year-old male presents emergency department for concerns of left calf wound that has been slow to heal. He was originally concerned of possible infection versus cellulitis I do not see any signs of cellulitis no unilateral edema to the leg both legs have 3+ pitting edema that patient says is chronic for him. The wound does not have any purulent drainage or any other signs of infection. Bacitracin was applied over the scab and patient was told he can continue to do this at home. Wound care taught return precautions given signs symptoms of infection also given to patient. Departure - Departure Disposition: 01 Home, Self Care Clinical Impression: Leg wound, left Qualifiers: Encounter type: initial encounter Qualified Code(s): S81.802A - Unspecified open wound, left lower leg, initial encounter Instructions: Infec Wound Recognize Tx Comments: At this point in time I am not seeing any obvious signs or symptoms of infection. We have placed some bacitracin which is [id number] topical antibiotic ointment to the wound on your left calf as well as a Band-Aid. You can do this up to 2 times a day to help with wound healing. I do not see any obvious erythema concerning for cellulitis. Make sure that you are keeping your lower extremities elevated to help with any swelling is much as possible. If you start to notice any fevers or chills please come back to the emergency department for any drainage that appears to be yellow or green. Forms: PCP List Discharge Date/Time: 08/13/23 12:11
[2023-08-13 11:33] VITALS: O2SAT 97
[2023-08-13] MEDS: BACITRACIN ZINC OINT 1 PACKET TOP STA (12:02)
[2023-08-13 12:17] VITALS: BP 147/107
== END 2023-08-13 12:11 | disposition home or self-care (01) ==
LOC: EDUNIT# → ED 11:11
DX: S81.802A Unspecified open wound, left lower leg, initial encounter (principal); W17.89XA Other fall from one level to another, initial encounter
CPT/HCPCS: 99283; A9270

== ENCOUNTER 2023-08-20 09:30 | Outpatient (CLI) | payer MEDICAID | END 2023-08-20 23:59 | disposition critical access hospital (66) | LOC: EMS 09:30 | DX: M79.605 Pain in left leg (principal); M79.622 Pain in left upper arm; M79.89 Other specified soft tissue disorders; R06.02 Shortness of breath | CPT/HCPCS: A0425; A0429; A0999 ==

== ENCOUNTER 2023-08-31 06:04 | Outpatient (CLI) | payer MEDICAID | END 2023-08-31 23:59 | disposition critical access hospital (66) | LOC: EMS 06:04 | DX: R06.02 Shortness of breath (principal); R07.1 Chest pain on breathing | CPT/HCPCS: A0425; A0429; A0999 ==

== ENCOUNTER 2023-08-31 06:37 | Emergency (ER) | payer MEDICAID ==
--- NOTE | 2023-08-31 07:32 | ED Physician Documentation ---
PD HPI DYSPNEA - Stated complaint Stated Complaint: SOA - Chief complaint Chief Complaint: Resp - History obtained from History obtained from: Patient - History of Present Illness Timing - onset: How many weeks ago (has been having progressive dyspnea and orthopnea the past week. Had been in [facility] a month ago for mulitple rib fractures. He states dyspnea is new and onset more recent as above.) Timing - duration: Weeks (1) Timing - details: Gradual onset Associated symptoms: Wheezing, Chest pain / discomfort (right posterolateral back with ongoing pain still). No: Fever, Cough, Hemoptysis Recently seen: Transferred ([facility] a month ago for fall with multiple rib fractires.) Review of Systems Constitutional: reports: Fever. denies: Chills Nose: denies: Rhinorrhea / runny nose, Congestion Throat: reports: Sore throat PD PAST MEDICAL HISTORY - Past Medical History Past Medical History: Yes Cardiovascular: Hypertension Respiratory: Asthma, Other Endocrine/Autoimmune: None GI: GERD, Other : Incontinence HEENT: Chronic sinusitis Psych: Depression, Anxiety, Bipolar disorder, Post traumatic stress disorder, Claustrophobia Musculoskeletal: Other Derm: Eczema, Rosacea - Past Surgical History Past Surgical History: Yes General: Hiatal hernia repair - Present Medications Home Medications: Ambulatory Orders Medication Instructions Recorded Confirmed Sertraline HCl [Zoloft] 50 mg PO DAILY 04/01/15 08/31/23 Acetaminophen [Tylenol] 500 mg PO DAILY 08/20/23 08/31/23 Albuterol Sulf [Ventolin Hfa 1 - 2 puffs INH Q4HR PRN #1 ea 08/20/23 08/31/23 Inhaler] Furosemide [Lasix] 20 mg PO DAILY 7 Days #7 tablet 08/20/23 08/31/23 Ibuprofen 200 mg PO DAILY 08/20/23 08/31/23 Albuterol Sulf [Ventolin Hfa 2 - 3 puffs INH QID #1 each 08/31/23 Inhaler] Meloxicam [Mobic] 7.5 mg PO BID 10 Days #20 tablet 08/31/23 Oxycodone HCl/Acetaminophen 1 each PO Q6H PRN #15 tablet 08/31/23 [Percocet 5-325 mg Tablet] - Allergies Allergies/Adverse Reactions: Allergies Allergy/AdvReac Type Severity Reaction Status Date / Time No Known Drug Allergies Allergy Verified 08/31/23 06:45 - Social History Does the pt smoke?: No Smoking Status: Never smoker Does the pt drink ETOH?: Yes Does the pt have substance abuse?: Yes - Immunizations Immunizations are current?: No Immunizations: TDAP >10years/unknown - POLST Patient has POLST: No PD ED PE NORMAL - Vitals Vital signs reviewed: Yes - General General: Alert and oriented X 3, Well developed/nourished - HEENT HEENT: Atraumatic - Neck Neck: Supple, no meningeal sign, No adenopathy - Cardiac Cardiac: RRR, No murmur - Respiratory Respiratory: No respiratory distress. No: Clear bilaterally (diffuse exp wheezing, decreased sounds right base. No fine crackles. ) - Derm Derm: Normal color, Warm and dry - Extremities Extremities: Normal ROM s pain, No edema, No calf tenderness / cord - Neuro Neuro: No motor deficit Results - Vitals Vitals: Vital Signs - 24 hr 08/31/23 08/31/23 08/31/23 06:42 07:44 07:48 Temperature 37.3 C Heart Rate 102 H 98 94 Respiratory 24 21 24 Rate Blood Pressure 152/94 H 149/85 H O2 Saturation 86 L 98 If not protocol 2 : Oxygen Flow, liters/minute 08/31/23 08/31/23 08/31/23 08:00 08:30 09:00 Temperature Heart Rate 100 96 94 Respiratory 22 23 22 Rate Blood Pressure 143/99 H 146/94 H 160/103 H O2 Saturation 95 97 If not protocol 2 2 2 : Oxygen Flow, liters/minute 08/31/23 08/31/23 08/31/23 09:30 11:00 11:30 Temperature Heart Rate 97 94 94 Respiratory 22 16 21 Rate Blood Pressure 163/90 H 118/86 H 109/93 H O2 Saturation 94 96 94 If not protocol 2 : Oxygen Flow, liters/minute 08/31/23 08/31/23 12:00 12:35 Temperature 37.0 C Heart Rate 96 96 Respiratory 20 20 Rate Blood Pressure 157/76 H 157/76 H O2 Saturation 97 88 L If not protocol 2 : Oxygen Flow, liters/minute Oxygen O2 Source Nasal cannula Oxygen Flow Rate 2 - Labs Labs: Laboratory Tests 08/31/23 08:20 Urine Color YELLOW Urine Clarity SL. CLOUDY Urine pH 6.0 Ur Specific [place] 1.010 Urine Protein NEGATIVE Urine Glucose (UA) NEGATIVE Urine Ketones NEGATIVE Urine Occult Blood TRACE-INTA Urine Nitrite NEGATIVE Urine Bilirubin NEGATIVE Urine Urobilinogen 0.2 (NORMAL) Ur Leukocyte Esterase LARGE H Urine RBC 0-5 Urine WBC >25 H Urine WBC Clumps PRESENT Ur Squamous Epith Cells RARE Squamous Urine Bacteria Few Ur Microscopic Review INDICATED Urine Culture Comments INDICATED - Rads (name of study) chest xray Relevant Findings:: Prelim report reviewed, EMP independent interpretation of test (some vacular congestion, right pleural effusion of hemothorax.) chest CT Relevant Findings:: Prelim report reviewed (multiple right subacute rib fracture. No PTX> large right effusion with compressive atelectasis. ), EMP independent interpretation of test PD Medical Decision Making - ED course Complexity details: reviewed results (effusion right and has density on CT that appears concerning for hemothorax. No PTX. ), considered differential, d/w patient, d/w product management consultant (Dr. Calloway, carbon paper machine operator for [facility], an acute care hospital. ) Reviewed Lab Results: Tonja dickey with effusion right chest after multiple rib fractures a month ago. Presume th eeffusion is larger/new than when in [facility]. This could account for his newer proressive dyspnea. The patient is hypoxic at about 88% RA. good on NC. My cocner is the fluid having density that could be hemothorax, slowly developing. Surgery feels the patient best approached with small chest tube rather than needle aspiration/thoracentesis. Patient was advised of recommendation for admission to Hospitalist and have chest tube for clearance and to ensure not having acute ongoing bleeding or such.The patient was going to go to Hospitalist service. However he then asked to talk with me. He says he has pets at home that he neds to feed and arrange someone to take care of them. He is okay with the treatment plan, but says he would need to come back later or tomorrow once arranged. He will have dyspnea and he is aware. Will return sooner if worse status/symptoms, otherwis We disucced treatment options and he imdependly chose home and return later. ED course: multiple rib fracture 5 weeks ago per patient. [facility]. Rx oral pain meds. Departure - Departure Disposition: 01 Home, Self Care Clinical Impression: Hemothorax on right, Dyspnea, Exacerbation of RAD (reactive airway disease), Hypoxia Ribs, multiple fractures Qualifiers: Encounter type: sequela Fracture type: closed Laterality: right Qualified Code(s): S22.41XS - Multiple fractures of ribs, right side, sequela Condition: Stable Record reviewed to determine appropriate education?: Yes Prescriptions: Meloxicam [Mobic] 7.5 mg PO BID 10 Days #20 tablet Oxycodone HCl/Acetaminophen [Percocet 5-325 mg Tablet] 1 each PO Q6H PRN #15 tablet PRN Reason: pain Albuterol Sulf [Ventolin Hfa Inhaler] 2 - 3 puffs INH QID #1 each Comments: Continue current medications. Add albuterol inhaler 2 to 3 puffs 4 times daily regularly. Continue your Advair/felt Flovent. Use the incentive spirometer 4 times daily to help expand the lungs. Your x-ray and CT scan show a moderate to large collection of fluid around the lung on the right. The density of it looks more like some old blood rather than later fluid. With that in mind, the recommendation from our surgeon was placement of a small chest tube to drain this out and help reexpand the lung for better breathing function and was unlikely to be able to be aspirated out with just new needle etc. This would require you being in the hospital a day or 2. This would be mechanically the best way to improve your breathing on that side. Otherwise to optimize your breathing, adding in the inhaler and expanding the lungs available with the incentive spirometer are good. Decreased pain will help with expanded breathing as well. I wrote for some prescriptions for you and sent them to your preferred pharmacy. I realize you are concerned about your parents the need to go home to take care of them and ensure someone is able to care for them. Return to the ER when possible or if you are having increasing troubles breathing etc. for continued care. Otherwise follow-up with your primary care over the next 2 to 3 days. Forms: PCP List Discharge Date/Time: 08/31/23 12:37
[2023-08-31] MEDS: ALBUTEROL NEB 2.5 MG/3 ML INH STA (07:45)
--- NOTE | 2023-08-31 07:57 | XRAY Report ---
PROCEDURE: Chest 1V INDICATIONS: shortness of breath TECHNIQUE: One view of the chest was acquired. COMPARISON: CT chest dated 07/30/2023. At that time, there were no fractures noted involving the right posterior lateral third through 10th ribs.. FINDINGS: Surgical changes and devices: None. Lungs and pleura: Moderate right pleural effusion and associated right basilar atelectasis. Mediastinum: Mediastinal contours appear normal. Heart size is normal. Bones and chest wall: Multiple right-sided rib fractures. No suspicious bony lesions. Overlying sof t tissues appear unremarkable. IMPRESSION: Multiple right-sided rib fractures, which likely all occurred approximately a month ago. There is possible moderate hemothorax and associated right basilar atelectasis. Findings are concordant with preliminary interpretation provided by [facility]. Reviewed by: Hossein Serna MD on 08/31/2023 7:55 AM PDT Approved by: Hossein Serna MD on 08/31/2023 7:55 AM PDT Station ID: [id number]
[2023-08-31] MEDS ORDERED: iohexoL-300 100 ML VIAL ONE (08:18)
[2023-08-31 08:28] LABS: BILIRUBIN,URINE NEGATIVE (NEGATIVE); GLUCOSE, URINE (UA) NEGATIVE (NEGATIVE); KETONES,URINE (UA) NEGATIVE (NEGATIVE); LEUKOCYTE ESTERASE, URINE LARGE (NEGATIVE); NITRITE,URINE NEGATIVE (NEGATIVE); OCCULT BLOOD,URINE TRACE-INTA (NEGATIVE); PROTEIN,URINE NEGATIVE (NEGATIVE); UROBILINOGEN,URINE 0.2 (NORMAL) E.U./dL (NORMAL)
[2023-08-31 08:33] LABS: CLARITY,URINE SL. CLOUDY (CLEAR)
[2023-08-31] MEDS: KETOROLAC 15 MG/ML VIAL IVP STA (08:33)
[2023-08-31] MEDS: HYDROmorphone 1 MG/ML CARPUJECT IVP STA (08:34)
[2023-08-31 08:38] LABS: BACTERIA,URINE Few /HPF (None Seen); RBC,URINE 0-5 /HPF (0-5); SQUAMOUS EPITHELIAL CELL,UR RARE Squamous (<= Few); WBC CLUMPS,URINE PRESENT; WBC,URINE >25 /HPF (0-3)
--- NOTE | 2023-08-31 10:17 | CT Report ---
PROCEDURE: Chest W INDICATIONS: right rib fxs, effusion, dyspnea CONTRAST: 100 mL Omnipaque 300 TECHNIQUE: After the administration of intravenous contrast, a CT scan of the chest was performed. Images were recorded and evaluated at appropriate window settings. Reformats: axial MIP of the chest, coronal and sagittal. For radiation dose reduction, the following was used: automated exposure control, adjustme nt of mA and/or kV according to patient size. COMPARISON: Chest x-ray 08/31/2023. FINDINGS: Image quality: Diagnostic. Chest wall and lower neck: No thyroid nodule which requires sonographic follow up. No breast mass. No axillary or supraclavicular adenopathy by size. Lungs and pleura: Large right pleural effusion with compressive atelectasis. 1.6 cm fat density nodul e in the right lung base may represent small hamartoma. No pneumothorax. No suspicious pulmonary nod ules which require follow up. Mediastinum: Heart size is normal. No pericardial effusion. No large vessel abnormality. No mediastin al adenopathy by size criteria. Bones: No aggressive osseous abnormality. Subacute appearing right second through 12th rib fractures. Chronic appearing left sixth, seventh, ninth and 11th and 12th rib fractures. Spine degenerative dis c disease and facet arthropathy are noted. Upper Abdomen: No acute disease process involving the visualized abdomen. Diffuse fatty infiltration of visualized liver. IMPRESSION: Large right pleural effusion with compressive atelectasis. Multiple subacute right rib fractures and multiple chronic left rib fractures. Reviewed by: Carolyn Boateng MD, PhD on 08/31/2023 10:15 AM PDT Approved by: Carolyn Boateng MD, PhD on 08/31/2023 10:15 AM PDT Station ID: [id number]
[2023-08-31] MEDS: oxyCODONE 5 MG TABLET PO STA (11:40)
[2023-08-31 12:45] VITALS: BP 157/76; O2SAT 88
[2023-08-31] MEDS: iohexoL-300 100 ML VIAL IVP ONE (13:57)
== END 2023-08-31 12:37 | disposition home or self-care (01) ==
LOC: EDUNIT# → ED 06:37
DX: J94.2 Hemothorax (principal); J90 Pleural effusion, not elsewhere classified; J98.11 Atelectasis; S22.41XS Multiple fractures of ribs, right side, sequela; X58.XXXS Exposure to other specified factors, sequela; J45.901 Unspecified asthma with (acute) exacerbation; I10 Essential (primary) hypertension
CPT/HCPCS: 71045; 71260; 81001; 87086; 94640; 96374; 99284; 99285; A9270; J1170; Q9967; 81003

== ENCOUNTER 2023-09-01 09:53 | Outpatient (CLI) | payer MEDICAID | END 2023-09-01 23:59 | disposition critical access hospital (66) | LOC: EMS 09:53 | DX: R06.02 Shortness of breath (principal) | CPT/HCPCS: A0425; A0427; A0999 ==

== ENCOUNTER 2023-09-01 10:23 | Inpatient (IN) | payer MEDICAID ==
--- NOTE | 2023-09-01 11:20 | ED Physician Documentation ---
PD HPI DYSPNEA - Stated complaint Stated Complaint: SOA - Chief complaint Chief Complaint: Resp - History obtained from History obtained from: Patient - Additional information Additional information: 58-year-old male presents by EMS from home for shortness of breath. Patient was seen yesterday in the emergency department for same complaint. He was found to have rib fractures and a hemothorax. Patient was advised on chest tube placement and admission to the hospital, however he left AGAINST MEDICAL ADVICE stating that he had to make arrangements for care for his animals. Patient returns today feeling no better than yesterday. Noted to be 85% on room air by EMS. Patient states that he has made arrangements for home and is agreeing to stay for treatment. Review of Systems Constitutional: denies: Fever, Chills Cardiac: reports: Chest pain / pressure (ribs). denies: Palpitations, Calf pain Respiratory: reports: Dyspnea. denies: Cough, Wheezing GI: denies: Abdominal Pain, Nausea, Vomiting : denies: Dysuria, Frequency, Hesitancy Musculoskeletal: denies: Neck pain, Back pain, Extremity pain Neurologic: denies: Generalized weakness, Focal weakness, Numbness PD PAST MEDICAL HISTORY - Past Medical History Past Medical History: Yes Cardiovascular: Hypertension Respiratory: Asthma, Other Endocrine/Autoimmune: None GI: GERD, Other : Incontinence HEENT: Chronic sinusitis Psych: Depression, Anxiety, Bipolar disorder, Post traumatic stress disorder, Claustrophobia Musculoskeletal: Other Derm: Eczema, Rosacea - Past Surgical History Past Surgical History: Yes General: Hiatal hernia repair - Present Medications Home Medications: Ambulatory Orders Medication Instructions Recorded Confirmed Sertraline HCl [Zoloft] 50 mg PO DAILY 04/01/15 08/31/23 Acetaminophen [Tylenol] 500 mg PO DAILY 08/20/23 08/31/23 Albuterol Sulf [Ventolin Hfa 1 - 2 puffs INH Q4HR PRN #1 ea 08/20/23 08/31/23 Inhaler] Furosemide [Lasix] 20 mg PO DAILY 7 Days #7 tablet 08/20/23 08/31/23 Ibuprofen 200 mg PO DAILY 08/20/23 08/31/23 Albuterol Sulf [Ventolin Hfa 2 - 3 puffs INH QID #1 each 08/31/23 Inhaler] Meloxicam [Mobic] 7.5 mg PO BID 10 Days #20 tablet 08/31/23 Oxycodone HCl/Acetaminophen 1 each PO Q6H PRN #15 tablet 08/31/23 [Percocet 5-325 mg Tablet] - Allergies Allergies/Adverse Reactions: Allergies Allergy/AdvReac Type Severity Reaction Status Date / Time No Known Drug Allergies Allergy Verified 09/01/23 10:45 - Social History Does the pt smoke?: No Smoking Status: Never smoker Does the pt drink ETOH?: Yes Does the pt have substance abuse?: Yes - Immunizations Immunizations are current?: No Immunizations: TDAP >10years/unknown - POLST Patient has POLST: No PD ED PE NORMAL - Vitals Vital signs reviewed: Yes - General General: Alert and oriented X 3, Well developed/nourished, Other (Appears older than stated age, chronically unwell) - Cardiac Cardiac: No murmur, Strong equal pulses, Other (Tachycardia) - Respiratory Respiratory: Other (Decreased breath sounds right lower lung urrutia, on supplemental O2) - Abdomen Abdomen: Soft, Non tender, Non distended - Derm Derm: Normal color, Warm and dry - Extremities Extremities: No deformity, No tenderness to palpate, Normal ROM s pain Results - Vitals Vitals: Vital Signs - 24 hr 09/01/23 09/01/23 09/01/23 10:39 11:38 12:00 Temperature 36.6 C Heart Rate 112 H 109 H 106 H Respiratory 24 19 20 Rate Blood Pressure 137/86 H 146/127 H 146/127 H O2 Saturation 94 95 95 If not protocol : Oxygen Flow, liters/minute 09/01/23 09/01/23 09/01/23 12:30 13:00 13:02 Temperature 36.6 C Heart Rate 103 H 99 102 H Respiratory 21 17 12 Rate Blood Pressure 135/85 H 147/86 H 147/86 H O2 Saturation 95 94 97 If not protocol 3 : Oxygen Flow, liters/minute 09/01/23 09/01/23 09/01/23 13:15 13:20 13:25 Temperature Heart Rate 106 H 99 105 H Respiratory 17 16 15 Rate Blood Pressure 178/114 H 186/109 H 184/117 H O2 Saturation 95 94 95 If not protocol 3 3 3 : Oxygen Flow, liters/minute 09/01/23 09/01/23 09/01/23 13:30 13:35 13:40 Temperature Heart Rate 104 H 100 99 Respiratory 19 18 19 Rate Blood Pressure 195/125 H 167/118 H 160/93 H O2 Saturation 93 93 93 If not protocol 3 3 3 : Oxygen Flow, liters/minute 09/01/23 09/01/23 09/01/23 13:45 13:50 13:55 Temperature Heart Rate 96 96 92 Respiratory 19 17 26 H Rate Blood Pressure 144/97 H 142/85 H 121/82 H O2 Saturation 93 93 93 If not protocol 3 3 3 : Oxygen Flow, liters/minute 09/01/23 14:00 Temperature Heart Rate 90 Respiratory 18 Rate Blood Pressure 116/60 O2 Saturation 93 If not protocol 3 : Oxygen Flow, liters/minute Oxygen O2 Source Nasal cannula Oxygen Flow Rate 3 - Labs Labs: Laboratory Tests 09/01/23 09/01/23 09/01/23 11:26 11:26 11:26 WBC 6.4 RBC 3.79 L Hgb 13.9 L Hct 42.4 MCV 111.9 H MCH 36.7 H MCHC 32.8 RDW 14.3 Plt Count 210 MPV 9.4 Neut # (Auto) 5.0 Lymph # (Auto) 0.7 L Floyd # (Auto) 0.4 Eos # (Auto) 0.1 Baso # (Auto) 0.0 Absolute Nucleated RBC 0.00 Nucleated RBC % 0.0 Manual Slide Review Indicated WBC Morphology NORMAL APPEARANCE Platelet Estimate NORMAL (130-450,000) Platelet Morphology NORMAL APPEARANCE RBC Morph Micro Appear 1+ MACROCYTOSIS PT 12.0 INR 1.1 Sodium 138 Potassium 4.1 Chloride 100 L Carbon Dioxide 35 H Anion Gap 3.0 L BUN 5 L Creatinine 0.6 Estimated GFR (MDRD) 137 Glucose 123 H Calcium 9.1 Total Bilirubin 0.6 AST 17 ALT 12 Alkaline Phosphatase 120 Total Protein 6.1 L Albumin 3.3 Globulin 2.8 Albumin/Globulin Ratio 1.2 Slides for Path Review Indicated Blood Type Antibody Screen 09/01/23 13:57 WBC RBC Hgb Hct MCV MCH MCHC RDW Plt Count MPV Neut # (Auto) Lymph # (Auto) Floyd # (Auto) Eos # (Auto) Baso # (Auto) Absolute Nucleated RBC Nucleated RBC % Manual Slide Review WBC Morphology Platelet Estimate Platelet Morphology RBC Morph Micro Appear PT INR Sodium Potassium Chloride Carbon Dioxide Anion Gap BUN Creatinine Estimated GFR (MDRD) Glucose Calcium Total Bilirubin AST ALT Alkaline Phosphatase Total Protein Albumin Globulin Albumin/Globulin Ratio Slides for Path Review Blood Type O POSITIVE Antibody Screen NEGATIVE Procedures - Chest Tube (location) - Major right 5th middle axillary line Chest tube preparation: Consent obtained, Time out completed, Sterile prep and drape Chest tube location: Right, Mid axillary line Chest tube anesthesia: Lidocaine, CC (enter) (5) Chest tube size: 40 Chest tube return: Blood, Volume of blood (enter cc (2800), Connected to suction Chest tube after care: Sutured, Confirmed with xray, Pt tolerated well - Procedural sedation Sedation prep: Informed consent, Time out completed, Last meal (1999 yesterday), ASA 3 - severe disease Sedation Medications: ketamine Mallampati classification: III Patient status during sedation: Responds to tactile, Vitals remained stable, Maintained airway, Recovered uneventfully Sedation recovery: Recovered uneventfully Time in sedation (Minutes): 20 PD Medical Decision Making - ED course Complexity details: reviewed old records, reviewed results, re-evaluated patient, considered differential, d/w patient, d/w center consultant ED course: Repeat visit for hemothorax, likely from rib fractures. Requiring supplemental nasal cannula to maintain saturations over 90%. Patient previously left AGAINST MEDICAL ADVICE due to needing to arrange animal care. He states that he has made the necessary arrangements and can stay for treatment. Chest x-ray placed in right chest wall per procedure notes with initial removal of 2800 cc of old dark red blood. Dr. Nicole of general surgery consulted on blood, states that this is normal for a 1 month old hemothorax, and as long as the blood does not turn bright red and remains less than 200 cc/h after the initial removal of blood then should be stable. Chest x-ray confirms placement of chest tube and patient remains hemodynamically stable. Discussed case with on-call hospitalist, who will admit for further treatment. - Critical Care Time(min): 39 Time Includes: Direct patient care, Review records, Reassess patient, Document care, Coordinate care, Medical consult, See progress note Data interpretation: Labs, Pulse ox, CXR, Prior EKG, Cardiac output, See progress note Procedures excluded from critical care time: Chest tube Departure - Departure Disposition: [facility] DC/Xfer Clinical Impression: Hemothorax, Rib fractures, Hypoxia
[2023-09-01 11:32] LABS: BASOPHILS % (AUTO) 0.6 %; EOSINOPHILS # (AUTO) 0.1 10^3/uL (0.0-0.7); EOSINOPHILS % (AUTO) 2.2 %; HCT - HEMATOCRIT 42.4 % (42.0-52.0); HGB - HEMOGLOBIN 13.9 g/dL (14.0-18.0); LYMPHOCYTES # (AUTO) 0.7 10^3/uL (1.5-3.5); LYMPHOCYTES % (AUTO) 11.4 %; MEAN CORPUSCULAR HEMOGLOBIN 36.7 pg (27.0-31.0); MEAN CORPUSCULAR HGB CONC 32.8 g/dL (32.0-36.0); MEAN CORPUSCULAR VOLUME 111.9 fL (80.0-94.0); MEAN PLATELET VOLUME 9.4 fL (7.4-11.4); MONOCYTES # (AUTO) 0.4 10^3/uL (0.0-1.0); MONOCYTES % (AUTO) 6.6 %; NEUTROPHILS % (AUTO) 78.7 %; PLT - PLATELET COUNT 210 10^3/uL (130-450); RED BLOOD COUNT 3.79 10^6/uL (4.70-6.10); RED CELL DISTRIBUTION WIDTH 14.3 % (12.0-15.0); WHITE BLOOD COUNT 6.4 x10^3/uL (4.8-10.8)
[2023-09-01 11:38] LABS: INR 1.1 (0.8-1.2); SLIDE REVIEW? Indicated
[2023-09-01 11:45] LABS: ALBUMIN 3.3 g/dL (3.2-5.5); ALBUMIN/GLOBULIN RATIO 1.2 (1.0-2.2); BILIRUBIN,TOTAL 0.6 mg/dL (0.2-1.0); CALCIUM 9.1 mg/dL (8.5-10.3); CREATININE 0.6 mg/dL (0.6-1.3); POTASSIUM 4.1 mmol/L (3.5-4.5); TOTAL PROTEIN 6.1 g/dL (6.4-8.9)
--- NOTE | 2023-09-01 11:54 | XRAY Report ---
PROCEDURE: Chest 1V INDICATIONS: HEMOTHORAX RE-EVAL TECHNIQUE: One view of the chest was acquired. COMPARISON: 04/01/2023. FINDINGS: Surgical changes and devices: None. Lungs and pleura: Moderate right pleural effusion with adjacent atelectasis versus consolidation is similar in appearance compared to prior. Left lung is grossly clear. Mediastinum: Mediastinal contours appear normal. Heart size is normal. Bones and chest wall: No suspicious bony lesions. Redemonstration of multiple right-sided rib fractu res. Overlying soft tissues appear unremarkable. IMPRESSION: Moderate right pleural effusion versus hemothorax with adjacent atelectasis versus consolidation, sim ilar appearance to prior. Redemonstration of multiple right-sided rib fractures. Reviewed by: Benja Johnson MD on 09/01/2023 11:53 AM PDT Approved by: Benja Johnson MD on 09/01/2023 11:53 AM PDT Station ID: [id number]
[2023-09-01 12:02] LABS: PLATELET ESTIMATE, MANUAL NORMAL (130-450,000) (NORMAL); PLATELET MORPHOLOGY NORMAL APPEARANCE (NORMAL); RBC MORPHOLOGY (MULTIPLE) 1+ MACROCYTOSIS (NORMAL); SLIDE SENT FOR PATH REVIEW? Indicated; WBC MORPHOLOGY (MULTIPLE) NORMAL APPEARANCE (NORMAL)
[2023-09-01] MEDS: SODIUM CHLORIDE 0.9% 1,000 ML IV STA (12:49)
[2023-09-01] MEDS: LORazepam 2 MG/ML VIAL IVP STA (12:54)
[2023-09-01] MEDS: MORPHINE 2 MG/ML CARPUJECT IVP STA (12:58)
[2023-09-01] MEDS: KETAMINE 500 MG/10 ML VIAL IVP STA ×2 (13:09→14:04)
--- NOTE | 2023-09-01 13:58 | XRAY Report ---
PROCEDURE: Chest for Line Placement INDICATIONS: S/P CHEST TUBE PLACEMENT TECHNIQUE: One view of the chest was acquired. COMPARISON: Portable chest x-ray from earlier on the same date, CT chest dated 08/31/2023. FINDINGS: Surgical changes and devices: Large bore right chest tube. Lungs and pleura: Moderate right pleural effusion with right basilar atelectasis. No pneumothorax. L eft lung is clear.. Mediastinum: Mediastinal contours appear normal. Heart size is normal. Bones and chest wall: No suspicious bony lesions. Overlying soft tissues appear unremarkable. IMPRESSION: Interval placement of large bore right chest tube. Moderate right pleural effusion and right basilar atelectasis. Reviewed by: Hossein Serna MD on 09/01/2023 1:56 PM PDT Approved by: Hossein Serna MD on 09/01/2023 1:56 PM PDT Station ID: [id number]
[2023-09-01] MEDS ORDERED: ONDANSETRON ODT 4 MG TABLET TL PRN (14:14)
[2023-09-01] MEDS: HYDROmorphone 1 MG/ML CARPUJECT IVP STA (14:19)
[2023-09-01 14:51] LABS: HCT - HEMATOCRIT 38.4 % (42.0-52.0); HGB - HEMOGLOBIN 12.7 g/dL (14.0-18.0)
[2023-09-01] MEDS: SODIUM CHLORIDE FLUSH 0.9% 10 ML SYRINGE IVP SCH (16:28)
[2023-09-01] MEDS: MORPHINE 2 MG/ML CARPUJECT IVP PRN (16:28)
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
--- NOTE | 2023-09-01 17:27 | CONSULTATION NOTE ---
Referring Provider Name of Referring Provider:: Dr. Ana Shepherd Consult Date: 09/01/23 Chief Complaint - Chief Complaint Chief Complaint: Chronic RIGHT pleral effusion 1 month after breaking ribs History of Present Illness - Admitted From Admitted From:: ED - History Obtained From Records Reviewed: Yes History obtained from: Chart, Dr. Shepherd, Dr. Jarquin, patient Exam Limitations: Patient is not the best conversationalist. - History of Present Illness HPI Comment/Other: Patient is a pleasant 58 year old male evaluated in Room 2204 at the request of Dr. Shepherd for input on the management of the chest tube placed to deal with a pleural effusion. The patient fell of his porch breaking his right ribs 3-10 on July 30, 2023. He was taken to for this and eventually was discharged home. His treatment at home was with NSAIDs primarily (also patches). He has presented to our ED for increasing shortness of breath and RIGHT sided chest pain. Evaluation revealed a moderate sized effusion. He initially signed out AMA out of concerns for who was goingto take care of the animals at his house (cat and gecko) but now that the care has been arranged he returns for treatment. A large bore chest tube has been placed by Dr. Jarquin with the return of a large amount of serosanguinous fluid. The patient continues to complain of pain but is clearly breathing easier. History - Past Medical History Cardiovascular: reports: Hypertension Respiratory: reports: Asthma Endocrine/Autoimmune: reports: None GI: reports: GERD, Other : reports: Incontinence HEENT: reports: Chronic sinusitis Psych: reports: Depression, Anxiety, Bipolar disorder, Post traumatic stress disorder, Claustrophobia Musculoskeletal: reports: Other Derm: reports: Eczema, Rosacea MRSA Hx?: No - Past Surgical History General: reports: Hiatal hernia repair Other past surgical history: History of LEFT rib fractures. - Family & Social History Living arrangement: At home - Substance History Use: Uses substance without health or social issues: Alcohol (occasional), Cannabis (twice a day) - POLST Patient has POLST: No Meds/Allgy - Home Medications Home Medications: Ambulatory Orders Medication Instructions Recorded Confirmed Sertraline HCl [Zoloft] 50 mg PO DAILY 04/01/15 08/31/23 Acetaminophen [Tylenol] 500 mg PO DAILY 08/20/23 08/31/23 Albuterol Sulf [Ventolin Hfa 1 - 2 puffs INH Q4HR PRN #1 ea 08/20/23 08/31/23 Inhaler] Furosemide [Lasix] 20 mg PO DAILY 7 Days #7 tablet 08/20/23 08/31/23 Ibuprofen 200 mg PO DAILY 08/20/23 08/31/23 Albuterol Sulf [Ventolin Hfa 2 - 3 puffs INH QID #1 each 08/31/23 Inhaler] Meloxicam [Mobic] 7.5 mg PO BID 10 Days #20 tablet 08/31/23 Oxycodone HCl/Acetaminophen 1 each PO Q6H PRN #15 tablet 08/31/23 [Percocet 5-325 mg Tablet] - Allergies Allergies/Adverse Reactions: Allergies Allergy/AdvReac Type Severity Reaction Status Date / Time No Known Drug Allergies Allergy Verified 09/01/23 10:45 Review of Systems - Constitutional Constitutional: denies: Fatigue - Eyes Eyes: denies: Pain - Ears, Nose & Throat Ears, Nose & Throat: denies: Ear pain - Cardiovascular Cariovascular: denies: Irregular heart rate - Respiratory Respiratory: reports: Cough, Wheezing - Gastrointestinal Gastrointestinal: denies: Abdominal pain, Black stools, Bloody stools - Musculoskeletal Musculoskeletal: reports: Back pain - Integumentary Integumentary: reports: Other (Cellulitis lower extremities.) - Psychiatric Psychiatric: reports: Anxiety Exam - Vital Signs Reviewed Vital Signs: Yes Vital Signs: Vital Signs x48h Temp Pulse Pulse Resp BP BP Pulse Ox 09/01/23 16:06 36.4 C L 89 16 123/82 H 94 09/01/23 15:27 09/01/23 14:30 90 15 107/66 09/01/23 14:15 90 15 107/73 93 09/01/23 14:00 90 18 116/60 09/01/23 13:55 92 26 H 121/82 H 09/01/23 13:50 96 17 142/85 H 09/01/23 13:45 96 19 144/97 H 09/01/23 13:40 99 19 160/93 H 09/01/23 13:35 100 18 167/118 H 09/01/23 13:30 104 H 19 195/125 H 09/01/23 13:25 105 H 15 184/117 H 95 09/01/23 13:20 99 16 186/109 H 94 09/01/23 13:15 106 H 17 178/114 H 95 09/01/23 13:02 36.6 C 102 H 12 147/86 H 97 09/01/23 13:00 99 17 147/86 H 94 09/01/23 12:30 103 H 21 135/85 H 95 09/01/23 12:00 106 H 20 146/127 H 95 09/01/23 11:38 109 H 19 146/127 H 95 09/01/23 10:39 36.6 C 112 H 24 137/86 H 94 O2 Flow Rate 09/01/23 16:06 3 09/01/23 15:27 3 09/01/23 14:30 3 09/01/23 14:15 3 09/01/23 14:00 3 09/01/23 13:55 3 09/01/23 13:50 3 09/01/23 13:45 3 09/01/23 13:40 3 09/01/23 13:35 3 09/01/23 13:30 3 09/01/23 13:25 3 09/01/23 13:20 3 09/01/23 13:15 3 09/01/23 13:02 3 09/01/23 13:00 09/01/23 12:30 09/01/23 12:00 09/01/23 11:38 09/01/23 10:39 - Physical Exam General Appearance: positive: No acute distress (Smells bad.) Eyes Bilateral: positive: No lid inflammation, Conjunctivae nml, No scleral icterus ENT: positive: No signs of dehydration Neck: positive: Trachea midline Respiratory: positive: No respiratory distress, Wheezes (Slight bilateral.) Cardiovascular: positive: Regular rate & rhythm Abdomen: positive: Non-tender, Nml bowel sounds Skin: positive: Color nml, Warm, Dry, Other (Cellulitis lower extremities.) Neurologic/Psychiatric: positive: Oriented x3, Motor nml, Sensation nml, Mood/affect nml Conclusion and Plan - Lab Results Laboratory Results 09/01/23 14:47: Hgb 12.7 L, Hct 38.4 L 09/01/23 13:57: Blood Type O POSITIVE, Antibody Screen NEGATIVE 09/01/23 11:26: Sodium 138, Potassium 4.1, Chloride 100 L, Carbon Dioxide 35 H, Anion Gap 3.0 L, BUN 5 L, Creatinine 0.6, Estimated GFR (MDRD) 137, Glucose 123 H, Calcium 9.1, Total Bilirubin 0.6, AST 17, ALT 12, Alkaline Phosphatase 120, Total Protein 6.1 L, Albumin 3.3, Globulin 2.8, Albumin/Globulin Ratio 1.2 09/01/23 11:26: PT 12.0, INR 1.1 09/01/23 11:26: WBC 6.4, RBC 3.79 L, Hgb 13.9 L, Hct 42.4, MCV 111.9 H, MCH 36.7 H, MCHC 32.8, RDW 14.3, Plt Count 210, MPV 9.4, Neut # (Auto) 5.0, Lymph # (Auto) 0.7 L, [place] # (Auto) 0.4, Eos # (Auto) 0.1, Baso # (Auto) 0.0, Absolute Nucleated RBC 0.00, Nucleated RBC % 0.0, Manual Slide Review Indicated, WBC Morphology NORMAL APPEARANCE, Platelet Estimate NORMAL (130-450,000), Platelet Morphology NORMAL APPEARANCE, RBC Morph Micro Appear 1+ MACROCYTOSIS, Slides for Path Review Indicated - Diagnostic Imaging Results Diagnostic Imaging Results: positive: Final report reviewed, Read independently - Diagnosis Diagnosis: RIGHT serosanguinous collection in RIGHT chest associated with RIGHT rib fractures 3-10. - Plan Plan: Chest tube placed and pulled back appropriately. Check output and recheck the CXR in AM. This will likely take several days to "dry up." Then chest tube to water seal and if no problem - remove tube. I will follow for chest tube management. Thank you very much for this consultation. CPT 83899
[2023-09-01] MEDS: oxyCODONE 5 MG TABLET PO PRN (17:30)
[2023-09-01] MEDS: ACETAMINOPHEN 325 MG TABLET PO PRN (17:31)
[2023-09-01] MEDS: KETOROLAC 15 MG/ML VIAL IVP SCH (19:28)
[2023-09-01] MEDS: cephALEXin 250 MG CAPSULE PO SCH (19:28)
[2023-09-01] MEDS ORDERED: SULFAMETH/TRIMETH DS 800/160 MG TABLET PO SCH (21:00)
[2023-09-01] MEDS: ACETAMINOPHEN 325 MG TABLET PO SCH (21:31)
[2023-09-01] MEDS: GABAPENTIN 300 MG CAPSULE PO SCH (21:31)
[2023-09-01] MEDS: ALBUTEROL NEB 2.5 MG/3 ML INH PRN (21:46)
[2023-09-01] MEDS: SODIUM CHLORIDE FLUSH 0.9% 10 ML SYRINGE IVP PRN (23:00)
[2023-09-02 05:55] LABS: BASOPHILS % (AUTO) 0.4 %; EOSINOPHILS # (AUTO) 0.1 10^3/uL (0.0-0.7); EOSINOPHILS % (AUTO) 1.7 %; HCT - HEMATOCRIT 41.7 % (42.0-52.0); HGB - HEMOGLOBIN 13.8 g/dL (14.0-18.0); LYMPHOCYTES # (AUTO) 0.9 10^3/uL (1.5-3.5); LYMPHOCYTES % (AUTO) 12.3 %; MEAN CORPUSCULAR HEMOGLOBIN 37.1 pg (27.0-31.0); MEAN CORPUSCULAR HGB CONC 33.1 g/dL (32.0-36.0); MEAN CORPUSCULAR VOLUME 112.1 fL (80.0-94.0); MEAN PLATELET VOLUME 9.4 fL (7.4-11.4); MONOCYTES # (AUTO) 0.5 10^3/uL (0.0-1.0); MONOCYTES % (AUTO) 6.7 %; NEUTROPHILS # (AUTO) 5.5 10^3/uL (1.5-6.6); NEUTROPHILS % (AUTO) 78.5 %; PLT - PLATELET COUNT 201 10^3/uL (130-450); RED BLOOD COUNT 3.72 10^6/uL (4.70-6.10); RED CELL DISTRIBUTION WIDTH 14.5 % (12.0-15.0)
[2023-09-02 06:00] LABS: SLIDE REVIEW? Indicated
[2023-09-02 06:06] LABS: CALCIUM 8.4 mg/dL (8.5-10.3); CREATININE 0.5 mg/dL (0.6-1.3); POTASSIUM 4.1 mmol/L (3.5-4.5)
[2023-09-02 06:32] LABS: PLATELET ESTIMATE, MANUAL NORMAL (130-450,000) (NORMAL)
[2023-09-02] MEDS ORDERED: hydrOXYzine PAMOATE 25 MG CAPSULE PO PRN (07:18)
--- NOTE | 2023-09-02 08:33 | XRAY Report ---
PROCEDURE: Chest 1V INDICATIONS: Follow up on chest tube and hemothorax TECHNIQUE: One view of the chest was acquired. COMPARISON: 08/31/2020 FINDINGS: Surgical changes and devices: Right-sided large bore chest tube present. Lungs and pleura: Similar right-sided pleural effusion and right basilar opacities. No significant p neumothorax. Mediastinum: Mediastinal contours appear normal. Heart size is normal. Bones and chest wall: No suspicious bony lesions. Overlying soft tissues appear unremarkable. IMPRESSION: Similar right-sided pleural effusion right basilar opacities. Reviewed by: aErnest Shearer MD on 09/02/2023 8:32 AM PDT Approved by: Earnest Shearer MD on 09/02/2023 8:32 AM PDT Station ID: [id number]
[2023-09-02] MEDS ORDERED: MAGNESIUM SULFATE 2 GM in SODIUM CHLORIDE 0.9% 50 ML IV ONE (08:47)
[2023-09-02] MEDS ORDERED: SERTRALINE 50 MG TABLET PO SCH (09:00)
[2023-09-02] MEDS: MAGNESIUM SULFATE 2 GRAM 2 GM/50 ML BAG IV ONE (09:05)
[2023-09-02] MEDS: ENOXAPARIN 40 MG/0.4 ML SYRINGE SUBQ SCH (09:06)
[2023-09-02] MEDS: THIAMINE 100 MG TABLET PO SCH (09:07)
[2023-09-02] MEDS: SERTRALINE 50 MG TABLET PO SCH (09:07)
[2023-09-02] MEDS: LOSARTAN 50 MG TABLET PO SCH (09:07)
[2023-09-02] MEDS: PRENATAL VITAMIN TABLET PO SCH (09:07)
--- NOTE | 2023-09-02 09:22 | PROVIDER PROGRESS NOTE ---
Subjective - Prog Note Date Prog Note Date: 09/02/23 Prog Note Time: 09:17 - Subjective Pt reports feeling: Worse (Pain is not well contolled. He has been painful all night. slept some, per night RN. But, he awakens, is agitated. Very verbal, and is raising his voice at the TV. not confused.) Subjective: Please has complaints of pain. States that he is unable to put his arms down secondary to this pain. He has been holding onto the trapeze that is connected to his bed. States that now his arms are numb due to this. He states that his pain has been as high as a 9 out of 10 overnight he states that currently it is a 7 or an 8. He was recently given nonnarcotic medications he is requesting morphine. He states that he is supposed to have a Zoom meeting with his mental health counselor today. He is ready to do this he continues to be quite loquacious.Does not like the oxygen and is claiming that is making his nose dry and stuffy. Current Medications - Current Medications Current Medications: Medications Albuterol (Albuterol Neb 2.5 Mg/3 Ml) 2.5 mg INH RTQ4H PRN PRN Reason: Wheezing Last Admin: 09/02/23 05:55 Dose: 2.5 mg Magnesium Sulfate (Magnesium Sulfate) 2 gm in 50 mls @ 50 mls/hr IV ONCE ONE Stop: 09/02/23 09:59 Oxycodone HCl (Oxycodone 5 Mg Tablet) 5 mg PO Q4HR PRN PRN Reason: Pain 5 to 7 Last Admin: 09/01/23 17:30 Dose: 5 mg Methocarbamol (Methocarbamol 500 Mg Tablet) 500 mg PO Q6HR PRN PRN Reason: Spasms Morphine Sulfate (Morphine 2 Mg/Ml Carpuject) 2 mg IVP Q2HR PRN PRN Reason: Pain 8 to 10 Last Admin: 09/02/23 07:35 Dose: 2 mg Acetaminophen (Acetaminophen 325 Mg Tablet) 650 mg PO Q4HR PRN PRN Reason: Pain 1 to 4, or Fever Last Admin: 09/01/23 17:31 Dose: 650 mg Acetaminophen (Acetaminophen 325 Mg Tablet) 650 mg PO Q4HR SUSANA Last Admin: 09/02/23 09:06 Dose: 650 mg Cephalexin (Cephalexin 250 Mg Capsule) 500 mg PO Q6HR [facility] Stop: 09/08/23 19:00 Last Admin: 09/02/23 06:13 Dose: 500 mg Enoxaparin Sodium (Enoxaparin 40 Mg/0.4 Ml Syringe) 40 mg SUBQ DAILY [facility] Last Admin: 09/02/23 09:06 Dose: 40 mg Gabapentin (Gabapentin 300 Mg Capsule) 300 mg PO TID [facility] Last Admin: 09/02/23 06:13 Dose: 300 mg Hydroxyzine Pamoate (Hydroxyzine Pamoate 25 Mg Capsule) 25 mg PO Q6H PRN PRN Reason: Anxiety Ketorolac Tromethamine (Ketorolac 15 Mg/Ml Vial) 15 mg IVP Q6HR [facility] Stop: 09/06/23 17:59 Last Admin: 09/02/23 06:13 Dose: 15 mg Lorazepam (Lorazepam 0.5 Mg Tablet) 0.5 mg PO Q6H PRN PRN Reason: Anxiety Losartan Potassium (Losartan 50 Mg Tablet) 50 mg PO DAILY [facility] Last Admin: 09/02/23 09:07 Dose: 50 mg Multivit/Folic Acid/Iron ( Vitamin Tablet) 1 tab PO DAILYWM [facility] Last Admin: 09/02/23 09:07 Dose: 1 tab Sertraline HCl (Sertraline 50 Mg Tablet) 100 mg PO DAILY [facility] Last Admin: 09/02/23 09:07 Dose: 100 mg Thiamine HCl (Thiamine 100 Mg Tablet) 100 mg PO DAILY [facility] Last Admin: 09/02/23 09:07 Dose: 100 mg Objective - Vital Signs/Intake & Output Vital Signs: Vital Signs x48h Temp Pulse Pulse Resp BP Pulse Ox O2 Flow Rate 09/02/23 08:00 36.6 C 95 18 152/90 H 97 4 09/02/23 05:55 93 20 4 09/02/23 04:45 92 4 09/02/23 04:30 89 L 3 Intake & Output: Intake & Output 08/30/23 08/31/23 09/01/23 09/02/23 23:59 23:59 23:59 23:59 Intake Total 1000 800 Output Total 1945 450 Balance -945 350 - Objective General Appearance: positive: No acute distress Eyes Bilateral: positive: Normal inspection, PERRL ENT: positive: ENT inspection nml, Dry mucous membranes (Some irritation and bleeding in the right nare. Left nare appears within normal limits.) Neck: positive: Nml inspection Respiratory: positive: No respiratory distress, Breath sounds nml Cardiovascular: positive: Regular rate & rhythm Peripheral Pulses: 2+ Dorsalis pedis (R), 2+ Dorsalis pedis (L) Abdomen: positive: Non-tender Back: positive: Nml inspection Skin: positive: Skin rash (The erythema on his left lower extremity is much decreased. The diffuse mild partial-thickness ulcerations have minimal to no drainage.) Extremities: negative: Pedal edema, Calf tenderness Neurologic/Psychiatric: positive: Oriented x3 - Lab Results Fish Bones: 09/02/23 05:19 09/02/23 05:19 Other Labs: Lab Results x24hrs 09/02/23 09/02/23 09/02/23 Range/Units 05:19 05:19 05:19 WBC (4.8-10.8) x10^3/uL RBC (4.70-6.10) 10^6/uL Hgb (14.0-18.0) g/dL Hct (42.0-52.0) % MCV (80.0-94.0) fL MCH (27.0-31.0) pg MCHC (32.0-36.0) g/dL RDW (12.0-15.0) % Plt Count (130-450) 10^3/uL MPV (7.4-11.4) fL Neut # (Auto) (1.5-6.6) 10^3/uL Lymph # (Auto) (1.5-3.5) 10^3/uL [place] # (Auto) (0.0-1.0) 10^3/uL Eos # (Auto) (0.0-0.7) 10^3/uL Baso # (Auto) (0.0-0.1) 10^3/uL Absolute Nucleated RBC x10^3/uL Nucleated RBC % /100WBC Manual Slide Review WBC Morphology (NORMAL) Platelet Estimate (NORMAL) Platelet Morphology (NORMAL) RBC Morph Micro Appear (NORMAL) PT (9.9-12.6) secs INR (0.8-1.2) Sodium 136 (135-145) mmol/L Potassium 4.1 (3.5-4.5) mmol/L Chloride 102 (101-111) mmol/L Carbon Dioxide 31 (21-32) mmol/L Anion Gap 3.0 L (6-13) BUN 7 (6-20) mg/dL Creatinine 0.5 L (0.6-1.3) mg/dL Estimated GFR (MDRD) 170 (>89) Glucose 107 H (74-104) mg/dL Calcium 8.4 L (8.5-10.3) mg/dL Magnesium 1.6 L (1.7-2.3) mg/dL Total Bilirubin (0.2-1.0) mg/dL AST (10-42) IU/L ALT (10-60) IU/L Alkaline Phosphatase (42-121) IU/L Total Protein (6.4-8.9) g/dL Albumin (3.2-5.5) g/dL Globulin (2.1-4.2) g/dL Albumin/Globulin Ratio (1.0-2.2) Vitamin B12 225 (180-914) pg/mL Folate 5.3 L (5.90 - >24.8) ng/mL Slides for Path Review Blood Type Antibody Screen 09/02/23 09/01/23 09/01/23 Range/Units 05:19 14:47 13:57 WBC 7.0 (4.8-10.8) x10^3/uL RBC 3.72 L (4.70-6.10) 10^6/uL Hgb 13.8 L 12.7 L (14.0-18.0) g/dL Hct 41.7 L 38.4 L (42.0-52.0) % MCV 112.1 H (80.0-94.0) fL MCH 37.1 H (27.0-31.0) pg MCHC 33.1 (32.0-36.0) g/dL RDW 14.5 (12.0-15.0) % Plt Count 201 (130-450) 10^3/uL MPV 9.4 (7.4-11.4) fL Neut # (Auto) 5.5 (1.5-6.6) 10^3/uL Lymph # (Auto) 0.9 L (1.5-3.5) 10^3/uL [place] # (Auto) 0.5 (0.0-1.0) 10^3/uL Eos # (Auto) 0.1 (0.0-0.7) 10^3/uL Baso # (Auto) 0.0 (0.0-0.1) 10^3/uL Absolute Nucleated RBC 0.00 x10^3/uL Nucleated RBC % 0.0 /100WBC Manual Slide Review Indicated WBC Morphology (NORMAL) Platelet Estimate NORMAL (130-450,000) (NORMAL) Platelet Morphology (NORMAL) RBC Morph Micro Appear 1+ HYPOCHROMASIA (NORMAL) PT (9.9-12.6) secs INR (0.8-1.2) Sodium (135-145) mmol/L Potassium (3.5-4.5) mmol/L Chloride (101-111) mmol/L Carbon Dioxide (21-32) mmol/L Anion Gap (6-13) BUN (6-20) mg/dL Creatinine (0.6-1.3) mg/dL Estimated GFR (MDRD) (>89) Glucose (74-104) mg/dL Calcium (8.5-10.3) mg/dL Magnesium (1.7-2.3) mg/dL Total Bilirubin (0.2-1.0) mg/dL AST (10-42) IU/L ALT (10-60) IU/L Alkaline Phosphatase (42-121) IU/L Total Protein (6.4-8.9) g/dL Albumin (3.2-5.5) g/dL Globulin (2.1-4.2) g/dL Albumin/Globulin Ratio (1.0-2.2) Vitamin B12 (180-914) pg/mL Folate (5.90 - >24.8) ng/mL Slides for Path Review Blood Type O POSITIVE Antibody Screen NEGATIVE 09/01/23 09/01/23 09/01/23 Range/Units 11:26 11:26 11:26 WBC 6.4 (4.8-10.8) x10^3/uL RBC 3.79 L (4.70-6.10) 10^6/uL Hgb 13.9 L (14.0-18.0) g/dL Hct 42.4 (42.0-52.0) % MCV 111.9 H (80.0-94.0) fL MCH 36.7 H (27.0-31.0) pg MCHC 32.8 (32.0-36.0) g/dL RDW 14.3 (12.0-15.0) % Plt Count 210 (130-450) 10^3/uL MPV 9.4 (7.4-11.4) fL Neut # (Auto) 5.0 (1.5-6.6) 10^3/uL Lymph # (Auto) 0.7 L (1.5-3.5) 10^3/uL [place] # (Auto) 0.4 (0.0-1.0) 10^3/uL Eos # (Auto) 0.1 (0.0-0.7) 10^3/uL Baso # (Auto) 0.0 (0.0-0.1) 10^3/uL Absolute Nucleated RBC 0.00 x10^3/uL Nucleated RBC % 0.0 /100WBC Manual Slide Review Indicated WBC Morphology NORMAL APPEARANCE (NORMAL) Platelet Estimate NORMAL (130-450,000) (NORMAL) Platelet Morphology NORMAL APPEARANCE (NORMAL) RBC Morph Micro Appear 1+ MACROCYTOSIS (NORMAL) PT 12.0 (9.9-12.6) secs INR 1.1 (0.8-1.2) Sodium 138 (135-145) mmol/L Potassium 4.1 (3.5-4.5) mmol/L Chloride 100 L (101-111) mmol/L Carbon Dioxide 35 H (21-32) mmol/L Anion Gap 3.0 L (6-13) BUN 5 L (6-20) mg/dL Creatinine 0.6 (0.6-1.3) mg/dL Estimated GFR (MDRD) 137 (>89) Glucose 123 H (74-104) mg/dL Calcium 9.1 (8.5-10.3) mg/dL Magnesium (1.7-2.3) mg/dL Total Bilirubin 0.6 (0.2-1.0) mg/dL AST 17 (10-42) IU/L ALT 12 (10-60) IU/L Alkaline Phosphatase 120 (42-121) IU/L Total Protein 6.1 L (6.4-8.9) g/dL Albumin 3.3 (3.2-5.5) g/dL Globulin 2.8 (2.1-4.2) g/dL Albumin/Globulin Ratio 1.2 (1.0-2.2) Vitamin B12 (180-914) pg/mL Folate (5.90 - >24.8) ng/mL Slides for Path Review Indicated Blood Type Antibody Screen Assessment/Plan - Problem List (1) Hemothorax Impression: Conclusion/Plan: As a result of rib fractures sustained several weeks ago. Emergency department has placed a chest tube which will be managed by surgery service. about 300cc drainage overngiht. The drainage is serosanguinous in nature is not bright red. In the right has greatly slowed since initial placement.I have reviewed both pre and postplacement chest x-ray films. Chest tube was retracted by the surgeon. CXR film was reviewed. There is no ptx, effusion slowly resolving. CXR images reviewed independently and with Dr Nicole, general surgery. discussed CT management with Dr Nicole. (2) Ribs, multiple fractures Conclusion/Plan: Best effort with incentive spirometry is 1000 cc at this time. improved from 750cc yesterday. Patient was encouraged to continue with incentive spirometry. I have prescribed multimodal pain control. I will manage his pain with as needed oxycodone, scheduled gabapentin, scheduled Tylenol. He is also getting IVP morphine for pain. Qualifiers: Encounter type: subsequent encounter Fracture type: closed Laterality: r ight (3) Hypoxia Conclusion/Plan: Down to 85% on room air. currently 92% O2 sat on 4L. Yesterday satting 93 to 94% on 3 L nasal cannula. Continue with supplemental oxygen therapy. Continue with incentive spirometry to increase lung volumes. (4) Asthma Conclusion/Plan: Controlled at home with as needed albuterol. Will continue to monitor O2 sats.No indication for exacerbation at this time. He is on home meds of albuterol, pulmicort and fluticasone/salmeterol. Qualifiers: Asthma severity: unspecified severity Asthma complication type: uncomplicated (5) Cellulitis of lower extremity Conclusion/Plan: With venous stasis ulcerations. Much improved overnight with elevation and po Keflex. At home he sleeps in a recliner not a bed and therefore does not elevate his legs at any time above his heart. He does not have any signs or symptoms of sepsis. Will monitor for increased white blood cell count. Qualifiers: Laterality: left Qualified Code(s): L03.116 - Cellulitis of left lower limb (6) PTSD (post-traumatic stress disorder) Conclusion/Plan: Chronic PTSD. Patient is on sertraline as an outpatient. We will continue his outpatient sertraline. He smokes marijuana twice daily to control his anxiety. Will watch him for withdrawal syndrome. I am concerned about his risk for leaving AGAINST MEDICAL ADVICE due to his psychiatric disease. I have instituted p.o. Ativan as needed. (7) Urinary tract infection in male Conclusion/Plan: Urine culture from previous ED visit shows Aerococcus species. Greater than 100,000 colony-forming units. Sensitivities will not be run on this. Given his lower extremity cellulitis and the fact that this bacteria is usually sensitive to Keflex we will treat his cellulitis with Keflex instead of Bactrim. (8) Folic acid deficiency Impression: Patient with a macrocytic anemia. He denies regular consumption of alcohol. States he stopped drinking beer about a month ago. Folate levels are decreased on anemia panel. I have ordered folic acid replacement. (9) Hypomagnesemia Impression: Magnesium low this morning at 1.6. I have ordered repletion, Mag Sulfate 2g IV once. I have ordered recheck of magnesium level in the a.m.
--- NOTE | 2023-09-02 11:23 | PHARMACY PROGRESS NOTE ---
- Best Possible Medication History Admit Date and Time: 09/01/23 1414 Processed by: Pharmacy As the person ultimately responsible for medication therapy, providers are able to order a medication from an existing home medication list in [facility] via the "Reconcile Routine" prior to Confirmation of that medication by mission support specialist. Such practice is discouraged except when the physician, in their clinical judgment, deems that a medical need exists for a medication without regard to previous use.
--- NOTE | 2023-09-02 12:22 | PROVIDER PROGRESS NOTE ---
Progress Note S: Patient is without concerted complaint. O: Vitals reviewed Physical examination: General: 58-year-old unkempt male appearing older than stated age in no acute distress, well-developed well-nourished, speaking on a range of issues all at once including Antonella [place], the [facility] and the [employer] in [place] HEENT: Normocephalic atraumatic sclera noninjected, nonicteric, mucous membranes pink and moist, poor dentition, unruly hair, rosenbaum, mustache Chest: Clear to auscultation anterolaterally bilaterally Cardiac: Regular rate and rhythm without rub murmur or gallop : Not indicated - deferred Rectal: Not indicated - deferred Extremities: Lower extremity cellulitis, toe nails thick discolored and should be cut Chest tube output is serosanguinous, no air leak Labs reviewed - no anemia, slight hypomagnesemia CXR reviewed and reading reviewed - chest tube withdrawn about 10 cm and redressed, patient tolerated it well A: Hemopneumothorax - resolving P: I withdrew the chest tube and redressed it. This should allow for slightly better function. CXR was ordered. For all other issues including mentation, cellulitis, ADLs I will defer to our hospitalists. CPT
--- NOTE | 2023-09-02 12:28 | XRAY Report ---
PROCEDURE: Chest 1V INDICATIONS: Chest tube pulled back TECHNIQUE: One view of the chest was acquired. COMPARISON: Chest x-ray 09/02/2023. FINDINGS: Surgical changes and devices: Right chest tube is present with distal tip projecting over the right apex. Lungs and pleura: Unchanged appearance of right effusion and opacities. No definitive pneumothorax. Mediastinum: Mediastinal contours appear normal. Heart size is normal. Bones and chest wall: No suspicious bony lesions. Overlying soft tissues appear unremarkable. IMPRESSION: Interval repositioning of right chest tube as above. Unchanged appearance of effusion and opacities within the right base. Reviewed by: Yumiko Salgado MD on 09/02/2023 12:26 PM PDT Approved by: Yumiko Salgado MD on 09/02/2023 12:26 PM PDT Station ID: [id number]
[2023-09-02] MEDS ORDERED: PETROLATUM WHITE 5 GM PACKET TOP PRN (12:43)
[2023-09-02] MEDS: CYANOCOBALAMIN 500 MCG TABLET PO SCH (16:30)
[2023-09-02] MEDS: FORMOTEROL FUMARATE NEB 20 MCG/2 ML INH SCH (20:23)
[2023-09-02] MEDS: BUDESONIDE 0.5 MG/2 ML NEB INH SCH (20:23)
[2023-09-02] MEDS ORDERED: FLUTICASONE PROPION INH SCH (21:00)
[2023-09-02] MEDS ORDERED: [UNRECOGNIZED DRUG - OTHER] INH SCH (21:00)
[2023-09-02] MEDS: ONDANSETRON 4 MG/2 ML VIAL IVP PRN (21:19)
[2023-09-02] MEDS: ATORVASTATIN 40 MG TABLET PO SCH (21:34)
[2023-09-02] MEDS: QUEtiapine 25 MG TABLET PO SCH (21:34)
[2023-09-03 08:17] LABS: HCT - HEMATOCRIT 42.8 % (42.0-52.0); HGB - HEMOGLOBIN 13.6 g/dL (14.0-18.0); MEAN CORPUSCULAR HEMOGLOBIN 36.8 pg (27.0-31.0); MEAN CORPUSCULAR HGB CONC 31.8 g/dL (32.0-36.0); MEAN CORPUSCULAR VOLUME 115.7 fL (80.0-94.0); MEAN PLATELET VOLUME 9.7 fL (7.4-11.4); RED BLOOD COUNT 3.7 10^6/uL (4.70-6.10); RED CELL DISTRIBUTION WIDTH 14.3 % (12.0-15.0); WHITE BLOOD COUNT 6.1 x10^3/uL (4.8-10.8)
[2023-09-03 08:31] LABS: CALCIUM 8.2 mg/dL (8.5-10.3); CREATININE 0.6 mg/dL (0.6-1.3); POTASSIUM 4.5 mmol/L (3.5-4.5)
[2023-09-03 08:33] LABS: TROPONIN I HIGH SENSITIVITY 9.7 ng/L (2.3-19.7)
[2023-09-03] MEDS ORDERED: LOSARTAN 50 MG TABLET PO SCH (09:00)
[2023-09-03] MEDS: QUEtiapine 25 MG TABLET PO SCH (09:11)
[2023-09-03] MEDS ORDERED: ACETAMINOPHEN 1,000 MG/100 ML 1,000 MG/100 ML BAG IV PRN (11:41)
[2023-09-03] MEDS: ARIPiprazole 5 MG TABLET PO SCH (12:14)
--- NOTE | 2023-09-03 13:30 | PROVIDER PROGRESS NOTE ---
Subjective - Prog Note Date Prog Note Date: 09/03/23 - Subjective Subjective: appears well. on the phone Objective - Vital Signs/Intake & Output Reviewed Vital Signs: Yes Vital Signs: Vital Signs x48h Temp Pulse Pulse Resp BP Pulse Ox O2 Flow Rate 09/03/23 08:57 36.5 C 96 20 123/73 98 4 09/03/23 08:51 4 09/03/23 06:00 22 93 4 09/03/23 05:55 96 28 H 4 09/03/23 05:45 26 H 82 L Intake & Output: Intake & Output 08/31/23 09/01/23 09/02/23 09/03/23 23:59 23:59 23:59 23:59 Intake Total 1000 1680 580 Output Total 1945 2505 300 Balance -945 -825 280 - Objective General Appearance: positive: No acute distress, Alert, Other (appears well and comfortable; however, complaint of pain) Respiratory: positive: No respiratory distress, Other (chest tube now thin serous.) - Lab Results Fish Bones: 09/03/23 05:45 09/03/23 05:45 Other Labs: Lab Results x24hrs 09/03/23 09/03/23 09/03/23 Range/Units 05:45 05:45 05:45 WBC 6.1 (4.8-10.8) x10^3/uL RBC 3.70 L (4.70-6.10) 10^6/uL Hgb 13.6 L (14.0-18.0) g/dL Hct 42.8 (42.0-52.0) % MCV 115.7 H (80.0-94.0) fL MCH 36.8 H (27.0-31.0) pg MCHC 31.8 L (32.0-36.0) g/dL RDW 14.3 (12.0-15.0) % Plt Count 190 (130-450) 10^3/uL MPV 9.7 (7.4-11.4) fL Sodium 136 (135-145) mmol/L Potassium 4.5 (3.5-4.5) mmol/L Chloride 100 L (101-111) mmol/L Carbon Dioxide 33 H (21-32) mmol/L Anion Gap 3.0 L (6-13) BUN 7 (6-20) mg/dL Creatinine 0.6 (0.6-1.3) mg/dL Estimated GFR (MDRD) 137 (>89) Glucose 118 H (74-104) mg/dL Calcium 8.2 L (8.5-10.3) mg/dL Magnesium 1.7 (1.7-2.3) mg/dL Troponin I High Sens 9.7 (2.3-19.7) ng/L Assessment/Plan - Problem List (1) Hemothorax Impression: much improved. chest tube out likely tomorrow
--- NOTE | 2023-09-03 17:16 | PROVIDER PROGRESS NOTE ---
Subjective - Prog Note Date Prog Note Date: 09/03/23 Prog Note Time: 17:14 - Subjective Pt reports feeling: Worse Subjective: Has complaints of pain. Feels that his pain is not being adequately controlled or treated. Has been refusing Tylenol and nonnarcotic pain medications. Please see nursing notes for interactions with staff overnight. Complains that the oxygen makes his nose dry and stuffy. I have ordered petroleum jelly to try to relieve this. He is more comfortable if he puts the nasal cannula in his mouth and breathes through his mouth. For the duration of my visit this seems to sustain his saturations. Current Medications - Current Medications Current Medications: Medications Cephalexin (Cephalexin 250 Mg Capsule) 500 mg PO Q6HR [facility] Stop: 09/08/23 19:00 Last Admin: 09/03/23 12:10 Dose: 500 mg Cyanocobalamin (Cyanocobalamin 500 Mcg Tablet) 500 mcg PO DAILY [facility] Last Admin: 09/03/23 09:12 Dose: 500 mcg Enoxaparin Sodium (Enoxaparin 40 Mg/0.4 Ml Syringe) 40 mg SUBQ DAILY [facility] Last Admin: 09/03/23 09:10 Dose: 40 mg Acetaminophen (Acetaminophen) 1,000 mg in 100 mls @ 400 mls/hr IV Q8HR PRN PRN Reason: Moderate Pain (Level 4-6) Albuterol (Albuterol Neb 2.5 Mg/3 Ml) 2.5 mg INH RTQ4H PRN PRN Reason: Wheezing Last Admin: 09/02/23 05:55 Dose: 2.5 mg Aripiprazole (Aripiprazole 5 Mg Tablet) 10 mg PO DAILY [facility] Last Admin: 09/03/23 12:14 Dose: 10 mg Atorvastatin Calcium (Atorvastatin 40 Mg Tablet) 40 mg PO QPM [facility] Last Admin: 09/02/23 21:34 Dose: 40 mg Budesonide (Budesonide 0.5 Mg/2 Ml Neb) 0.5 mg INH RTBID [facility] Last Admin: 09/03/23 05:52 Dose: 0.5 mg Formoterol Fumarate (Formoterol Fumarate Neb 20 Mcg/2 Ml) 20 mcg INH RTBID [facility] Last Admin: 09/03/23 05:52 Dose: 20 mcg Gabapentin (Gabapentin 300 Mg Capsule) 300 mg PO TID [facility] Last Admin: 09/03/23 14:36 Dose: 300 mg Hydroxyzine Pamoate (Hydroxyzine Pamoate 25 Mg Capsule) 25 mg PO Q6H PRN PRN Reason: Anxiety Ketorolac Tromethamine (Ketorolac 15 Mg/Ml Vial) 15 mg IVP Q6HR [facility] Stop: 09/06/23 17:59 Last Admin: 09/03/23 14:35 Dose: 15 mg Lorazepam (Lorazepam 0.5 Mg Tablet) 0.5 mg PO Q6H PRN PRN Reason: Anxiety Losartan Potassium (Losartan 50 Mg Tablet) 50 mg PO DAILY [facility] Last Admin: 09/03/23 09:12 Dose: 50 mg Methocarbamol (Methocarbamol 500 Mg Tablet) 500 mg PO Q6HR PRN PRN Reason: Spasms Morphine Sulfate (Morphine 2 Mg/Ml Carpuject) 2 mg IVP Q2HR PRN PRN Reason: Pain 8 to 10 Last Admin: 09/03/23 11:29 Dose: 2 mg Ondansetron HCl (Ondansetron Odt 4 Mg Tablet) 4 mg TL Q6HR PRN PRN Reason: Nausea / Vomiting Oxycodone HCl (Oxycodone 5 Mg Tablet) 5 mg PO Q4HR PRN PRN Reason: Pain 5 to 7 Last Admin: 09/01/23 17:30 Dose: 5 mg Petrolatum (Petrolatum White 5 Gm Packet) 1 applic TOP Q4HR PRN PRN Reason: Dry Nasal Pasage Multivit/Folic Acid/Iron ( Vitamin Tablet) 1 tab PO DAILYWM [facility] Last Admin: 09/03/23 09:12 Dose: 1 tab Quetiapine Fumarate (Quetiapine 25 Mg Tablet) 50 mg PO BID [facility] Last Admin: 09/03/23 09:11 Dose: 50 mg Sertraline HCl (Sertraline 50 Mg Tablet) 100 mg PO DAILY [facility] Last Admin: 09/03/23 09:11 Dose: 100 mg Objective - Vital Signs/Intake & Output Vital Signs: Vital Signs x48h Temp Pulse Resp BP Pulse Ox O2 Flow Rate 09/03/23 16:00 36.5 C 92 18 104/61 97 4 Intake & Output: Intake & Output 08/31/23 09/01/23 09/02/23 09/03/23 23:59 23:59 23:59 23:59 Intake Total 1000 1680 700 Output Total 1945 2505 620 Balance -945 -825 80 - Objective General Appearance: positive: No acute distress Eyes Bilateral: positive: Normal inspection ENT: positive: ENT inspection nml Neck: positive: Nml inspection Respiratory: positive: No respiratory distress, Breath sounds nml. negative: Chest non-tender (chest appropriately tender around the chest tube site. he has minimal drainage around the tube. there have been about 300cc out of the tube overnight, serosanguinous drainage.) Cardiovascular: positive: Regular rate & rhythm Peripheral Pulses: 2+ Dorsalis pedis (R), 2+ Dorsalis pedis (L) Abdomen: positive: Non-tender Skin: negative: No rash (No erythema of the lower extremities. No drainage of the superficial ulcerations on the bilateral lower extremities.) Extremities: positive: No pedal edema (Decreased markedly from the time of admission.) Neurologic/Psychiatric: positive: Oriented x3 (Oriented x 3. When I asked him to please be kind in his interactions towards our staff, he initially tells me "then call the capacitor assembler", I explained to him that we want to help him and give him good care, he then turns away from me and says "we are done") - Lab Results Fish Bones: 09/03/23 05:45 09/03/23 05:45 Other Labs: Lab Results x24hrs 09/03/23 09/03/23 09/03/23 Range/Units 05:45 05:45 05:45 WBC 6.1 (4.8-10.8) x10^3/uL RBC 3.70 L (4.70-6.10) 10^6/uL Hgb 13.6 L (14.0-18.0) g/dL Hct 42.8 (42.0-52.0) % MCV 115.7 H (80.0-94.0) fL MCH 36.8 H (27.0-31.0) pg MCHC 31.8 L (32.0-36.0) g/dL RDW 14.3 (12.0-15.0) % Plt Count 190 (130-450) 10^3/uL MPV 9.7 (7.4-11.4) fL Sodium 136 (135-145) mmol/L Potassium 4.5 (3.5-4.5) mmol/L Chloride 100 L (101-111) mmol/L Carbon Dioxide 33 H (21-32) mmol/L Anion Gap 3.0 L (6-13) BUN 7 (6-20) mg/dL Creatinine 0.6 (0.6-1.3) mg/dL Estimated GFR (MDRD) 137 (>89) Glucose 118 H (74-104) mg/dL Calcium 8.2 L (8.5-10.3) mg/dL Magnesium 1.7 (1.7-2.3) mg/dL Troponin I High Sens 9.7 (2.3-19.7) ng/L ABX Reporting Has patient been on IV antibiotics over the past 48 hours?: No Assessment/Plan - Problem List (1) Hemothorax Impression: As a result of rib fractures sustained several weeks ago. Emergency department has placed a chest tube which is managed by surgery service. about 300cc drainage overngiht. The drainage is serosanguinous in nature is not bright red. Dr Valdez of General surgery saw the patient this afternoon and anticpates removal of the chest tube tomorrow. (2) Ribs, multiple fractures Conclusion/Plan: refuses to demonstrate IS today. Patient was encouraged to continue with incentive spirometry. I have prescribed multimodal pain control. I will manage his pain with as needed oxycodone, scheduled gabapentin, scheduled Tylenol. He is also getting IVP morphine for pain. Qualifiers: Encounter type: subsequent encounter Fracture type: closed Laterality: right (3) Hypoxia Conclusion/Plan: Down to 85% on room air. currently 9297-98% O2 sat on 4L. Y Continue with supplemental oxygen therapy. Continue with incentive spirometry to increase lung volumes. Should likely improve on removal of chest tube. (4) Asthma Conclusion/Plan: Controlled at home with as needed albuterol. Will continue to monitor O2 sats.No indication for exacerbation at this time. He is on home meds of albut hector, pulmicort and fluticasone/salmeterol. Some substernal chest pain ,this AM without radiation. his troponin was 9.7 Qualifiers: Asthma severity: unspecified severity Asthma complication type: uncomplicated (5) Cellulitis of lower extremity Conclusion/Plan: With venous stasis ulcerations. appears resolved on exam today. He should complete 7 days of PO keflex. At home he sleeps in a recliner not a bed and therefore does not elevate his legs at any time above his heart. He does not have any signs or symptoms of sepsis. Will monitor for increased white blood cell count. Qualifiers: Laterality: left Qualified Code(s): L03.116 - Cellulitis of left lower limb (6) PTSD (post-traumatic stress disorder) Conclusion/Plan: Chronic PTSD. Patient is on sertraline as an outpatient. We will continue his outpatient sertraline. He smokes marijuana twice daily to control his anxiety. I am concerned about his risk for leaving AGAINST MEDICAL ADVICE due to his psychiatric disease. I have instituted p.o. Ativan as needed. Further research into his psychiatric medication was done. he has been on Abilify, and this was restarted today. I have increased his seroquel to 50mg BID. May be able to de escalate this. Although he has been verbally abusive to staff, he has not been physically abusive towards them. (7) Urinary tract infection in male Conclusion/Plan: Urine culture from previous ED visit shows Aerococcus species. Greater than 100,000 colony-forming units. Sensitivities will not be run on this. Given his lower extremity cellulitis and the fact that this bacteria is usually sensitive to Keflex we will treat his cellulitis with Keflex instead of Bactrim. (8) Folic acid deficiency Impression: Patient with a macrocytic anemia. He denies regular consumption of alcohol. States he stopped drinking beer about a month ago. Folate levels are decreased on anemia panel. I have ordered folic acid replacement. (9) Hypomagnesemia Impression: [facility] was repleted by me. level returned this AM at 1.7. resolved.
[2023-09-03] MEDS: methocarbamoL 500 MG TABLET PO PRN (18:47)
[2023-09-04] MEDS: CALCIUM CARBONATE CHEW 500 MG TABLET PO PRN (01:41)
[2023-09-04] MEDS: polyethylene glycoL 3350 17 GM PACKET PO SCH (08:55)
--- NOTE | 2023-09-04 15:02 | PROVIDER PROGRESS NOTE ---
Subjective - Prog Note Date Prog Note Date: 09/04/23 Prog Note Time: 15:00 - Subjective Pt reports feeling: Improved Subjective: The dryness in his nose is better. Oxygen is currently off because he forgot to put it back on. He likes his nurse today. He does not want to be transferred and refuses to discuss the possibility with me. Fewer complaints of pain. When asked, he states 8/10, but appears comfortable. remains loquacious. Current Medications - Current Medications Current Medications: Medications Methocarbamol (Methocarbamol 500 Mg Tablet) 500 mg PO Q6HR PRN PRN Reason: Spasms Last Admin: 09/03/23 18:47 Dose: 500 mg Calcium Carbonate/Glycine (Calcium Carbonate Chew 500 Mg Tablet) 500 mg PO TID PRN PRN Reason: INDIGESTION Last Admin: 09/04/23 01:41 Dose: 500 mg Cephalexin (Cephalexin 250 Mg Capsule) 500 mg PO Q6HR [facility] Stop: 09/08/23 19:00 Last Admin: 09/04/23 11:53 Dose: 500 mg Cyanocobalamin (Cyanocobalamin 500 Mcg Tablet) 500 mcg PO DAILY [facility] Last Admin: 09/04/23 08:54 Dose: 500 mcg Acetaminophen (Acetaminophen) 1,000 mg in 100 mls @ 400 mls/hr IV Q8HR PRN PRN Reason: Moderate Pain (Level 4-6) Albuterol (Albuterol Neb 2.5 Mg/3 Ml) 2.5 mg INH RTQ4H PRN PRN Reason: Wheezing Last Admin: 09/04/23 00:31 Dose: 2.5 mg Aripiprazole (Aripiprazole 5 Mg Tablet) 10 mg PO DAILY [facility] Last Admin: 09/04/23 08:54 Dose: 10 mg Atorvastatin Calcium (Atorvastatin 40 Mg Tablet) 40 mg PO QPM [facility] Last Admin: 09/03/23 22:08 Dose: 40 mg Budesonide (Budesonide 0.5 Mg/2 Ml Neb) 0.5 mg INH RTBID [facility] Last Admin: 09/04/23 06:59 Dose: 0.5 mg Enoxaparin Sodium (Enoxaparin 40 Mg/0.4 Ml Syringe) 40 mg SUBQ DAILY [facility] Last Admin: 09/04/23 08:55 Dose: Not Given Formoterol Fumarate (Formoterol Fumarate Neb 20 Mcg/2 Ml) 20 mcg INH RTBID [facility] Last Admin: 09/04/23 07:01 Dose: 20 mcg Gabapentin (Gabapentin 300 Mg Capsule) 300 mg PO TID [facility] Last Admin: 09/04/23 13:58 Dose: 300 mg Hydroxyzine Pamoate (Hydroxyzine Pamoate 25 Mg Capsule) 25 mg PO Q6H PRN PRN Reason: Anxiety Ketorolac Tromethamine (Ketorolac 15 Mg/Ml Vial) 15 mg IVP Q6HR [facility] Stop: 09/06/23 17:59 Last Admin: 09/04/23 11:53 Dose: 15 mg Lorazepam (Lorazepam 0.5 Mg Tablet) 0.5 mg PO Q6H PRN PRN Reason: Anxiety Losartan Potassium (Losartan 50 Mg Tablet) 50 mg PO DAILY [facility] Last Admin: 09/04/23 08:54 Dose: 50 mg Morphine Sulfate (Morphine 2 Mg/Ml Carpuject) 2 mg IVP Q2HR PRN PRN Reason: Pain 8 to 10 Last Admin: 09/04/23 13:53 Dose: 2 mg Ondansetron HCl (Ondansetron Odt 4 Mg Tablet) 4 mg TL Q6HR PRN PRN Reason: Nausea / Vomiting Oxycodone HCl (Oxycodone 5 Mg Tablet) 5 mg PO Q4HR PRN PRN Reason: Pain 5 to 7 Last Admin: 09/01/23 17:30 Dose: 5 mg Petrolatum (Petrolatum White 5 Gm Packet) 1 applic TOP Q4HR PRN PRN Reason: Dry Nasal Pasage Polyethylene Glycol (Polyethylene Glycol 3350 17 Gm Packet) 17 gm PO DAILY [facility] Last Admin: 09/04/23 08:55 Dose: Not Given Multivit/Folic Acid/Iron ( Vitamin Tablet) 1 tab PO DAILYWM [facility] Last Admin: 09/04/23 08:54 Dose: 1 tab Quetiapine Fumarate (Quetiapine 25 Mg Tablet) 50 mg PO BID [facility] Last Admin: 09/04/23 08:55 Dose: 50 mg Sertraline HCl (Sertraline 50 Mg Tablet) 100 mg PO DAILY [facility] Last Admin: 09/04/23 08:55 Dose: 100 mg Thiamine HCl (Thiamine 100 Mg Tablet) 100 mg PO DAILY [facility] Last Admin: 09/04/23 08:54 Dose: 100 mg Objective - Vital Signs/Intake & Output Vital Signs: Vital Signs x48h Pulse Resp O2 Flow Rate 09/04/23 07:02 80 20 4 09/04/23 07:00 4 83% on Room air when I am at bedside. O2 reapplied. Intake & Output: Intake & Output 09/01/23 09/02/23 09/03/23 09/04/23 23:59 23:59 23:59 23:59 Intake Total 1000 1680 1680 1620 Output Total 1945 2505 1845 200 Balance -945 -825 -165 1420 Chest tube with about 1000 cc out on evening shift yesterday. Today with large sudden output of serous fluid, about 260cc mid morning. 2 large BMs in the last 24 hours (normal consistency). - Objective General Appearance: positive: No acute distress Eyes Bilateral: positive: Normal inspection ENT: positive: ENT inspection nml Neck: positive: Nml inspection Respiratory: positive: Breath sounds nml, Wheezes, Other (appropriate TTP at chest tube site. lungs CTA. decreased at bases. no wheeze) Cardiovascular: positive: Regular rate & rhythm Peripheral Pulses: 2+ Dorsalis pedis (R), 2+ Dorsalis pedis (L) Abdomen: positive: Non-tender Back: positive: Nml inspection Skin: positive: Color nml, Dry, Skin rash (lower legs: healing ulcerations that are dry without drainage, no erythma. no edema) Extremities: positive: No pedal edema Neurologic/Psychiatric: positive: Oriented x3 - Lab Results Fish Bones: 09/03/23 05:45 09/03/23 05:45 ABX Reporting Has patient been on IV antibiotics over the past 48 hours?: No Assessment/Plan - Problem List (1) Hemothorax Impression: Impression: As a result of rib fractures sustained several weeks ago. Emergency department has placed a chest tube which is managed by surgery service. has had increased drainage in the last 24 hours. The drainage is serosanguinous in nature is not bright red. Dr Orellana of General surgery due to see this patient this afternoon. I have queried him about further steps in management of this effusion. He will make a determination about next steps. I am concerned that the patient may require transfer, but patient is resistant to this idea when I introduced it. (2) Ribs, multiple fractures Conclusion/Plan: Patient was encouraged to continue with incentive spirometry. He appears comfortable. He rates his pain 7-8/10. I have prescribed multimodal pain control. I will manage his pain with as needed oxycodone, scheduled gabapentin, scheduled Tylenol. He is also getting IVP morphine for pain. (3) Hypoxia Conclusion/Plan: Down to 85% on room air. currently 83% on RA. I have replaced his supplemental O2 at 4L. Continue with supplemental oxygen therapy. Continue with incentive spirometry to increase lung volumes. (4) Asthma Conclusion/Plan: There is no wheeze on exam today. he is not tachypneic. He appears comfortable. He is on home meds of albuterol, pulmicort and fluticasone/salmeterol. (5) Cellulitis of lower extremity Conclusion/Plan: With venous stasis ulcerations. appears resolved on exam today. Day #4/7 Keflex. At home he sleeps in a recliner not a bed and therefore does not elevate his legs at any time above his heart. He does not have any signs or symptoms of sepsis. I have ordered a CBC for AM labs. (6) PTSD (post-traumatic stress disorder) Conclusion/Plan: Chronic PTSD. Patient is on sertraline as an outpatient. We will continue his outpatient sertraline. He smokes marijuana twice daily to control his anxiety. I am concerned about his risk for leaving AGAINST MEDICAL ADVICE due to his psychiatric disease. I have instituted p.o. Ativan as needed. Further research into his psychiatric medication was done. I started Abilify 10mg daily on 09/02. I have increased his seroquel to 50mg BID on 09/02. I am will maintain seroquel at currently dosing. he remains with signs of hypomania, but has been more pleasant to caregivers. (7) Urinary tract infection in male Conclusion/Plan: Urine culture from previous ED visit shows Aerococcus species. Greater than 100,000 colony-forming units. Sensitivities will not be run on this. Given his lower extremity cellulitis and the fact that this bacteria is usually sensitive to Keflex we will treat his cellulitis with Keflex instead of Bactrim. I would treat for 5 days, he is currently day #4/7 on prescribed tx for cellultis. (8) Folic acid deficiency Impression: Patient with a macrocytic anemia. He denies regular consumption of alcohol. States he stopped drinking beer about a month ago. Folate levels are decreased on anemia panel. I have ordered folic acid replacement. I will discharge him to home on this medication, with instructions to followup with PCP. He is established with PCP at [facility] (9) Hypomagnesemia Impression: resolved. Check Mag level with AM labs. (10) Hypocalcemia Impression: Calcium levels have dropped since the time of admission, 9.1 to 8.4 and 8.2. I have ordered Calcium and Vit D supplementation. I will check BMP in AM.
--- NOTE | 2023-09-04 15:41 | PROVIDER PROGRESS NOTE ---
Subjective - Prog Note Date Prog Note Date: 09/04/23 - Subjective Subjective: appears very comfortable. Objective - Vital Signs/Intake & Output Intake & Output: Intake & Output 09/01/23 09/02/23 09/03/23 09/04/23 23:59 23:59 23:59 23:59 Intake Total 1000 1680 1680 1620 Output Total 1945 2505 1845 200 Balance -009 -825 -419 8650 - Objective General Appearance: positive: No acute distress, Alert Respiratory: positive: No respiratory distress, Other (chest tube with several 100 ml serous fluid) - Lab Results Fish Bones: 09/03/23 05:45 09/03/23 05:45 Assessment/Plan - Problem List (1) Hemothorax Impression: chest tube still fairly high with serous fluid. he states he does not want to be transferred for potential chest surgery and prefers another day or two care here. plan ct out when drainage has decreased.
[2023-09-05 06:04] LABS: BASOPHILS % (AUTO) 0.4 %; EOSINOPHILS # (AUTO) 0.2 10^3/uL (0.0-0.7); EOSINOPHILS % (AUTO) 3.5 %; HCT - HEMATOCRIT 38.1 % (42.0-52.0); HGB - HEMOGLOBIN 12.3 g/dL (14.0-18.0); LYMPHOCYTES # (AUTO) 0.7 10^3/uL (1.5-3.5); LYMPHOCYTES % (AUTO) 9.7 %; MEAN CORPUSCULAR HEMOGLOBIN 36.6 pg (27.0-31.0); MEAN CORPUSCULAR HGB CONC 32.3 g/dL (32.0-36.0); MEAN CORPUSCULAR VOLUME 113.4 fL (80.0-94.0); MEAN PLATELET VOLUME 9.5 fL (7.4-11.4); MONOCYTES # (AUTO) 0.5 10^3/uL (0.0-1.0); NEUTROPHILS # (AUTO) 5.3 10^3/uL (1.5-6.6); PLT - PLATELET COUNT 192 10^3/uL (130-450); RED BLOOD COUNT 3.36 10^6/uL (4.70-6.10); RED CELL DISTRIBUTION WIDTH 14.3 % (12.0-15.0); WHITE BLOOD COUNT 6.8 x10^3/uL (4.8-10.8)
[2023-09-05 06:21] LABS: CALCIUM 8.4 mg/dL (8.5-10.3); CREATININE 0.5 mg/dL (0.6-1.3); MAGNESIUM 1.6 mg/dL (1.7-2.3); POTASSIUM 4.4 mmol/L (3.5-4.5)
[2023-09-05] MEDS: CHOLECALCIFEROL 400 UNIT TABLET PO SCH (09:17)
[2023-09-05] MEDS: CALCIUM CARB (OYSTER SHELL) 500 MG TABLET PO SCH (09:19)
--- NOTE | 2023-09-05 12:53 | PROVIDER PROGRESS NOTE ---
Subjective - Prog Note Date Prog Note Date: 09/05/23 Prog Note Time: 12:34 - Subjective Pt reports feeling: No change Subjective: Playing his video games today. he is excited and yelling. appears comfortable. Does not have complaints or requests. He likes his nurse Current Medications - Current Medications Current Medications: Medications Gabapentin (Gabapentin 300 Mg Capsule) 300 mg PO TID [facility] Last Admin: 09/05/23 06:04 Dose: 300 mg Cephalexin (Cephalexin 250 Mg Capsule) 500 mg PO Q6HR [facility] Stop: 09/08/23 19:00 Last Admin: 09/05/23 12:51 Dose: 500 mg Morphine Sulfate (Morphine 2 Mg/Ml Carpuject) 2 mg IVP Q2HR PRN PRN Reason: Pain 8 to 10 Last Admin: 09/04/23 23:51 Dose: 2 mg Cholecalciferol (Cholecalciferol 400 Unit Tablet) 800 unit PO DAILY [facility] Last Admin: 09/05/23 09:17 Dose: 800 unit Multivit/Folic Acid/Iron ( Vitamin Tablet) 1 tab PO DAILYWM [facility] Last Admin: 09/05/23 09:17 Dose: 1 tab Cyanocobalamin (Cyanocobalamin 500 Mcg Tablet) 500 mcg PO DAILY [facility] Last Admin: 09/05/23 09:17 Dose: 500 mcg Enoxaparin Sodium (Enoxaparin 40 Mg/0.4 Ml Syringe) 40 mg SUBQ DAILY [facility] Last Admin: 09/05/23 09:19 Dose: 40 mg Formoterol Fumarate (Formoterol Fumarate Neb 20 Mcg/2 Ml) 20 mcg INH RTBID [facility] Last Admin: 09/05/23 07:05 Dose: 20 mcg Acetaminophen (Acetaminophen) 1,000 mg in 100 mls @ 400 mls/hr IV Q8HR PRN PRN Reason: Moderate Pain (Level 4-6) Hydroxyzine Pamoate (Hydroxyzine Pamoate 25 Mg Capsule) 25 mg PO Q6H PRN PRN Reason: Anxiety Ketorolac Tromethamine (Ketorolac 15 Mg/Ml Vial) 15 mg IVP Q6HR [facility] Stop: 09/06/23 17:59 Last Admin: 09/05/23 12:51 Dose: 15 mg Lorazepam (Lorazepam 0.5 Mg Tablet) 0.5 mg PO Q6H PRN PRN Reason: Anxiety Losartan Potassium (Losartan 50 Mg Tablet) 50 mg PO DAILY [facility] Last Admin: 09/05/23 09:17 Dose: 50 mg Methocarbamol (Methocarbamol 500 Mg Tablet) 500 mg PO Q6HR PRN PRN Reason: Spasms Last Admin: 09/03/23 18:47 Dose: 500 mg Ondansetron HCl (Ondansetron Odt 4 Mg Tablet) 4 mg TL Q6HR PRN PRN Reason: Nausea / Vomiting Oxycodone HCl (Oxycodone 5 Mg Tablet) 5 mg PO Q4HR PRN PRN Reason: Pain 5 to 7 Last Admin: 09/05/23 12:51 Dose: 5 mg Petrolatum (Petrolatum White 5 Gm Packet) 1 applic TOP Q4HR PRN PRN Reason: Dry Nasal [place] Polyethylene Glycol (Polyethylene Glycol 3350 17 Gm Packet) 17 gm PO DAILY [facility] Last Admin: 09/05/23 09:19 Dose: 17 gm Quetiapine Fumarate (Quetiapine 25 Mg Tablet) 50 mg PO BID [facility] Last Admin: 09/05/23 09:18 Dose: 50 mg Sertraline HCl (Sertraline 50 Mg Tablet) 100 mg PO DAILY [facility] Last Admin: 09/05/23 09:18 Dose: 100 mg Thiamine HCl (Thiamine 100 Mg Tablet) 100 mg PO DAILY [facility] Last Admin: 09/05/23 09:17 Dose: 100 mg Albuterol (Albuterol Neb 2.5 Mg/3 Ml) 2.5 mg INH RTQ4H PRN PRN Reason: Wheezing Last Admin: 09/04/23 00:31 Dose: 2.5 mg Aripiprazole (Aripiprazole 5 Mg Tablet) 10 mg PO DAILY [facility] Last Admin: 09/05/23 09:18 Dose: 10 mg Atorvastatin Calcium (Atorvastatin 40 Mg Tablet) 40 mg PO QPM [facility] Last Admin: 09/04/23 21:24 Dose: 40 mg Budesonide (Budesonide 0.5 Mg/2 Ml Neb) 0.5 mg INH RTBID [facility] Last Admin: 09/05/23 07:05 Dose: 0.5 mg Calcium Carbonate/Glycine (Calcium Carbonate Chew 500 Mg Tablet) 500 mg PO TID PRN PRN Reason: INDIGESTION Last Admin: 09/04/23 01:41 Dose: 500 mg Calcium Carbonate/Glycine (Calcium Carb (Oyster Shell) 500 Mg Tablet) 500 mg PO DAILY [facility] Last Admin: 09/05/23 09:19 Dose: 500 mg Objective - Vital Signs/Intake & Output Vital Signs: Vital Signs x48h Temp Pulse Pulse Resp BP Pulse Ox O2 Flow Rate 09/05/23 08:00 37 C 95 18 132/79 H 97 4 09/05/23 07:07 78 22 4 09/05/23 07:05 4 Intake & Output: Intake & Output 09/02/23 09/03/23 09/04/23 09/05/23 23:59 23:59 23:59 23:59 Intake Total 1680 1680 3420 1290 Output Total 2505 1845 300 300 Balance -825 -165 3120 990 Chest tube 225cc since midnight. - Objective General Appearance: positive: No acute distress Eyes Bilateral: positive: Normal inspection ENT: positive: ENT inspection nml Neck: positive: Nml inspection Respiratory: negative: Chest non-tender (appropriately tender around chest tube site. chest tube is draining serous fluid.), Wheezes, Rales, Rhonchi Cardiovascular: positive: Regular rate & rhythm Abdomen: positive: Non-tender Back: positive: Nml inspection Extremities: positive: No pedal edema (healing ulcerations that are dry without drainage, no erythema or edema) Neurologic/Psychiatric: positive: Oriented x3, Other (continues to be hyperverbal) - Lab Results Fish Bones: 09/05/23 05:43 09/05/23 05:43 Other Labs: Lab Results x24hrs 09/05/23 09/05/23 Range/Units 05:43 05:43 WBC 6.8 (4.8-10.8) x10^3/uL RBC 3.36 L (4.70-6.10) 10^6/uL Hgb 12.3 L (14.0-18.0) g/dL Hct 38.1 L (42.0-52.0) % MCV 113.4 H (80.0-94.0) fL MCH 36.6 H (27.0-31.0) pg MCHC 32.3 (32.0-36.0) g/dL RDW 14.3 (12.0-15.0) % Plt Count 192 (130-450) 10^3/uL MPV 9.5 (7.4-11.4) fL Neut # (Auto) 5.3 (1.5-6.6) 10^3/uL Lymph # (Auto) 0.7 L (1.5-3.5) 10^3/uL [place] # (Auto) 0.5 (0.0-1.0) 10^3/uL Eos # (Auto) 0.2 (0.0-0.7) 10^3/uL Baso # (Auto) 0.0 (0.0-0.1) 10^3/uL Absolute Nucleated RBC 0.00 x10^3/uL Nucleated RBC % 0.0 /100WBC Sodium 135 (135-145) mmol/L Potassium 4.4 (3.5-4.5) mmol/L Chloride 97 L (101-111) mmol/L Carbon Dioxide 37 H (21-32) mmol/L Anion Gap 1.0 L (6-13) BUN 7 (6-20) mg/dL Creatinine 0.5 L (0.6-1.3) mg/dL Estimated GFR (MDRD) 170 (>89) Glucose 122 H (74-104) mg/dL Calcium 8.4 L (8.5-10.3) mg/dL Magnesium 1.6 L (1.7-2.3) mg/dL Assessment/Plan - Problem List (1) Hemothorax Impression: As a result of rib fractures sustained several weeks ago. Emergency department has placed a chest tube which is managed by surgery service. Continues to have serous drainage which is blood tinged. Dr Orellana of General surgery is following the patient. We have discussed that the CT output is not decreasing. This patient needs transfer for further evaluation and treatment of his pleural effusion. Patient is amenable to transfer today. He was not amenable yesterday. he agrees that he will go to [facility] for further evaluation and treatment. his patient is requiring inpatient services >96 hours in length for admission for retained hemothorax after rib fracture. He has a chest tube in place that is draining >300cc of serosanguinous fluid per 12 hours. He is requiring parenteral narcotics. General surgery needs the patient to remain with chest tube in place to drain fluid for further treatment of this pleural effusion. Drainage volume is not decreasing. discussed with Dr Orellana, general surgery, and he agrees that transfer is warranted. This has been initiated. I called [facility] transfer center. Patient was excepted for transfer to the general surgery service under Dr. Villarreal. Provider to provider consultation was deferred as it will be several days before they have a bed available. He will not go through the emergency department he will be admitted directly to the floor at [facility]. (2) Ribs, multiple fractures Conclusion/Plan: Patient was encouraged to continue with incentive spirometry. He appears comfortable. He rates his pain 7-8/10; this is no change from previous. I have prescribed multimodal pain control. I will manage his pain with as needed oxycodone, scheduled gabapentin, scheduled Tylenol. He is also getting IVP morphine for pain. (3) Hypoxia Conclusion/Plan: Hypoxic on room air to the 80's. Continue with supplemental oxygen therapy. Continue with incentive spirometry to increase lung volumes. (4) Asthma Conclusion/Plan: There is no wheeze on exam today. he is not tachypneic. He appears comfortable. He is on home meds of albuterol, pulmicort and fluticasone/salmeterol. (5) Cellulitis of lower extremity Conclusion/Plan: With venous stasis ulcerations. appears resolved. Day #5/7 Keflex. At home he sleeps in a recliner not a bed and therefore does not elevate his legs at any time above his heart. He does not have any signs or symptoms of sepsis. I have ordered a CBC for AM labs. (6) PTSD (post-traumatic stress disorder) Conclusion/Plan: Chronic PTSD. Patient is on sertraline as an outpatient. We will continue his outpatient sertraline. He smokes marijuana twice daily at home to control his anxiety. I am concerned about his risk for leaving AGAINST MEDICAL ADVICE due to his psychiatric disease. I have instituted p.o. Ativan as needed. Further research into his psychiatric medication was done. I started Abilify 10mg daily on 09/02. I have increased his seroquel to 50mg BID on 09/02. I am will maintain seroquel at currently dosing. he remains with signs of hypomania, but has been more pleasant to caregivers. (7) Urinary tract infection in male Conclusion/Plan: Urine culture from previous ED visit shows Aerococcus species. Greater than 100,000 colony-forming units. Sensitivities will not be run on this. Given his lower extremity cellulitis and the fact that this bacteria is usually sensitive to Keflex we will treat his cellulitis with Keflex instead of Bactrim. I would treat for 5 days, he is currently day #5/7 on prescribed tx for cellultis. (8) Folic acid deficiency Impression: Patient with a macrocytic anemia. He denies regular consumption of alcohol. States he stopped drinking beer about a month ago. Folate levels are decreased on anemia panel. I have ordered folic acid replacement. I will discharge him to home on this medication, with instructions to followup with PCP. He is established with PCP at [facility] (9) Hypomagnesemia Impression: Mag level low again today. 1.6. will institute daily po replacement. (10) Hypocalcemia Impression: Calcium levels have dropped since the time of admission. 8.4 today. I have ordered Calcium and Vit D supplementation. I will check BMP in AM.
--- NOTE | 2023-09-05 16:14 | PROVIDER PROGRESS NOTE ---
Subjective - Subjective Pt reports feeling: Improved (feels well today. very polite today.) Objective - Vital Signs/Intake & Output Vital Signs: Vital Signs x48h Temp Pulse Resp BP Pulse Ox O2 Flow Rate 09/05/23 15:35 36.6 C 93 18 125/75 92 4 Intake & Output: Intake & Output 09/02/23 09/03/23 09/04/23 09/05/23 23:59 23:59 23:59 23:59 Intake Total 1680 1680 3420 2250 Output Total 2505 1845 300 410 Balance -825 -165 3120 1840 - Objective General Appearance: positive: No acute distress, Alert, Other (comfortable and seems in a much better mood today.) Respiratory: positive: No respiratory distress, Other (chest tube continues with high serous output) Neurologic/Psychiatric: positive: Oriented x3 - Lab Results Fish Bones: 09/05/23 05:43 09/05/23 05:43 Other Labs: Lab Results x24hrs 09/05/23 09/05/23 09/05/23 Range/Units 12:50 05:43 05:43 WBC 6.8 (4.8-10.8) x10^3/uL RBC 3.36 L (4.70-6.10) 10^6/uL Hgb 12.3 L (14.0-18.0) g/dL Hct 38.1 L (42.0-52.0) % MCV 113.4 H (80.0-94.0) fL MCH 36.6 H (27.0-31.0) pg MCHC 32.3 (32.0-36.0) g/dL RDW 14.3 (12.0-15.0) % Plt Count 192 (130-450) 10^3/uL MPV 9.5 (7.4-11.4) fL Neut # (Auto) 5.3 (1.5-6.6) 10^3/uL Lymph # (Auto) 0.7 L (1.5-3.5) 10^3/uL [place] # (Auto) 0.5 (0.0-1.0) 10^3/uL Eos # (Auto) 0.2 (0.0-0.7) 10^3/uL Baso # (Auto) 0.0 (0.0-0.1) 10^3/uL Absolute Nucleated RBC 0.00 x10^3/uL Nucleated RBC % 0.0 /100WBC Sodium 135 (135-145) mmol/L Potassium 4.4 (3.5-4.5) mmol/L Chloride 97 L (101-111) mmol/L Carbon Dioxide 37 H (21-32) mmol/L Anion Gap 1.0 L (6-13) BUN 7 (6-20) mg/dL Creatinine 0.5 L (0.6-1.3) mg/dL Estimated GFR (MDRD) 170 (>89) Glucose 122 H (74-104) mg/dL Calcium 8.4 L (8.5-10.3) mg/dL Magnesium 1.6 L (1.7-2.3) mg/dL SARS-CoV-2 (PCR) NOT DETECTED Assessment/Plan - Problem List (1) Hemothorax Impression: agree with transfer. if chest tube is removed at this time he likely would need to have another one placed in several days.
[2023-09-06 07:22] LABS: CALCIUM 8.6 mg/dL (8.5-10.3); CREATININE 0.5 mg/dL (0.6-1.3); POTASSIUM 4.3 mmol/L (3.5-4.5)
--- NOTE | 2023-09-06 07:29 | PROVIDER PROGRESS NOTE ---
Subjective - General Admit Date: 09/01/23 - Review of Systems All Other Systems: positive: Reviewed and negative - Other Other Information/Narrative: Patient states rib pain improving but chest tube insertion site uncomfortable. Breathing well with O2. Patient doing breathing treatment at time of my visit. Tolerating regular diet. No n/v. Objective - Patient Data Reviewed Vital Signs: Yes Vital Signs: Vital Signs x48h Temp Pulse Resp BP Pulse Ox O2 Flow Rate 09/06/23 00:00 36.5 C 101 H 18 129/80 97 4 Intake & Output: Intake and Output Totals x24h 09/04/23 09/05/23 09/06/23 23:59 23:59 23:59 Intake Total 3420 3140 600 Output Total 300 563 605 Balance 3120 2577 -5 - Lab Results Lab Results: 09/05/23 05:43 09/06/23 06:46 Other Lab Results: Lab Results x24hrs 09/06/23 09/05/23 Range/Units 06:46 12:50 Sodium 136 (135-145) mmol/L Potassium 4.3 (3.5-4.5) mmol/L Chloride 98 L (101-111) mmol/L Carbon Dioxide 37 H (21-32) mmol/L Anion Gap 1.0 L (6-13) BUN 7 (6-20) mg/dL Creatinine 0.5 L (0.6-1.3) mg/dL Estimated GFR (MDRD) 170 (>89) Glucose 130 H (74-104) mg/dL Calcium 8.6 (8.5-10.3) mg/dL SARS-CoV-2 (PCR) NOT DETECTED - Current Medications Current Medications: Current Medications Generic Name Dose Route Start Last Admin Trade Name Freq PRN Reason Stop Dose Admin Albuterol 2.5 mg 09/01/23 14:23 09/04/23 00:31 Albuterol Neb 2.5 Mg/3 Ml INH 2.5 mg RTQ4H PRN Administration Wheezing Aripiprazole 10 mg 09/03/23 12:00 09/05/23 09:18 Aripiprazole 5 Mg Tablet PO 10 mg DAILY [facility] Administration Atorvastatin Calcium 40 mg 09/02/23 21:00 09/05/23 20:50 Atorvastatin 40 Mg Tablet PO 40 mg QPM [facility] Administration Budesonide 0.5 mg 09/02/23 19:00 09/05/23 20:15 Budesonide 0.5 Mg/2 Ml Neb INH 0.5 mg RTBID [facility] Administration Calcium Carbonate/Glycine 500 mg 09/04/23 01:01 09/04/23 01:41 Calcium Carbonate Chew 500 Mg Tablet PO 500 mg TID PRN Administration INDIGESTION Calcium Carbonate/Glycine 500 mg 09/05/23 09:00 09/05/23 09:19 Calcium Carb (Oyster Shell) 500 Mg Tablet PO 500 mg DAILY [facility] Administration Cephalexin 500 mg 09/01/23 19:00 09/06/23 05:38 Cephalexin 250 Mg Capsule PO 09/08/23 19:00 500 mg Q6HR [facility] Administration Cholecalciferol 800 unit 09/05/23 09:00 09/05/23 09:17 Cholecalciferol 400 Unit Tablet PO 800 unit DAILY [facility] Administration Cyanocobalamin 500 mcg 09/02/23 17:00 09/05/23 09:17 Cyanocobalamin 500 Mcg Tablet PO 500 mcg DAILY [facility] Administration Enoxaparin Sodium 40 mg 09/02/23 09:00 09/05/23 09:19 Enoxaparin 40 Mg/0.4 Ml Syringe SUBQ 40 mg DAILY [facility] Administration Formoterol Fumarate 20 mcg 09/02/23 19:00 09/05/23 20:15 Formoterol Fumarate Neb 20 Mcg/2 Ml INH 20 mcg RTBID [facility] Administration Gabapentin 300 mg 09/01/23 22:00 09/06/23 05:38 Gabapentin 300 Mg Capsule PO 300 mg TID [facility] Administration Ketorolac Tromethamine 15 mg 09/01/23 18:00 09/06/23 05:38 Ketorolac 15 Mg/Ml Vial IVP 09/06/23 17:59 15 mg Q6HR [facility] Administration Losartan Potassium 50 mg 09/02/23 09:00 09/05/23 09:17 Losartan 50 Mg Tablet PO 50 mg DAILY [facility] Administration Methocarbamol 500 mg 09/02/23 06:59 09/03/23 18:47 Methocarbamol 500 Mg Tablet PO 500 mg Q6HR PRN Administration Spasms Morphine Sulfate 2 mg 09/01/23 14:14 09/04/23 23:51 Morphine 2 Mg/Ml Carpuject IVP 2 mg Q2HR PRN Administration Pain 8 to 10 Ondansetron HCl 4 mg 09/01/23 14:14 09/02/23 21:19 Ondansetron 4 Mg/2 Ml Vial IVP 4 mg Q6HR PRN Administration Nausea / Vomiting Oxycodone HCl 5 mg 09/01/23 14:14 09/06/23 05:38 Oxycodone 5 Mg Tablet PO 5 mg Q4HR PRN Administration Pain 5 to 7 Polyethylene Glycol 17 gm 09/04/23 09:00 09/05/23 09:19 Polyethylene Glycol 3350 17 Gm Packet PO 17 gm DAILY [facility] Administration Multivit/Folic Acid/Iron 1 tab 09/02/23 09:00 09/05/23 09:17 Vitamin Tablet PO 1 tab DAILYWM [facility] Administration Quetiapine Fumarate 50 mg 09/03/23 09:00 09/05/23 20:50 Quetiapine 25 Mg Tablet PO 50 mg BID [facility] Administration Sertraline HCl 100 mg 09/02/23 09:00 09/05/23 09:18 Sertraline 50 Mg Tablet PO 100 mg DAILY [facility] Administration Sodium Chloride 10 ml 09/01/23 14:14 09/01/23 23:00 Sodium Chloride Flush 0.9% 10 Ml Syringe IVP 10 ml PRN PRN Administration NEEDED PER PROVIDER ORDERS Sodium Chloride 10 ml 09/01/23 17:00 09/06/23 00:16 Sodium Chloride Flush 0.9% 10 Ml Syringe IVP 10 ml 0100,0900,1700 [facility] Administration Thiamine HCl 100 mg 09/02/23 09:00 09/05/23 09:17 Thiamine 100 Mg Tablet PO 100 mg DAILY [facility] Administration - Physical Exam Comments/Other: Gen: NAD, alert and oriented CV: RRR Pulm: coarse breath sounds in B bases, R>L. CT in good position with 443mL serosang output in pleurevac. Abd: soft, NT, ND, no r/g Impression/Plan - Problem List Problem List: 58 y/o M with h/o R rib fx 3-10 after fall from standing on 07/30/23. Admitted for large R pleural effusion vs hemothorax. 1. right pleural effusion - initially blood tinged, now clearing but still very high output - CT to waterseal (no PTX) - participating in care with RT, still requiring 2L O2. - due to high output patient need consultation with thoracic surgery for likely VATS. Pending transfer to [facility] (patient has been accepted, awaiting bed). I agree with transfer for this service which is not avialable at our [facility]. 2. UTI, LE cellulitis, PTSD - per primary team.
--- NOTE | 2023-09-06 15:44 | PROVIDER PROGRESS NOTE ---
Subjective - Prog Note Date Prog Note Date: 09/06/23 Prog Note Time: 15:44 - Subjective Pt reports feeling: No change Subjective: Chest tube is not bothering him. He has been calm today. He is watching videos on his computer today. Has some itchiness around the chest tube site. Current Medications - Current Medications Current Medications: Medications Calcium Carbonate/Glycine (Calcium Carbonate Chew 500 Mg Tablet) 500 mg PO TID PRN PRN Reason: INDIGESTION Last Admin: 09/04/23 01:41 Dose: 500 mg Calcium Carbonate/Glycine (Calcium Carb (Oyster Shell) 500 Mg Tablet) 500 mg PO DAILY [facility] Last Admin: 09/06/23 08:46 Dose: 500 mg Atorvastatin Calcium (Atorvastatin 40 Mg Tablet) 40 mg PO QPM [facility] Last Admin: 09/05/23 20:50 Dose: 40 mg Enoxaparin Sodium (Enoxaparin 40 Mg/0.4 Ml Syringe) 40 mg SUBQ DAILY [facility] Last Admin: 09/06/23 08:47 Dose: 40 mg Hydroxyzine Pamoate (Hydroxyzine Pamoate 25 Mg Capsule) 25 mg PO Q6H PRN PRN Reason: Anxiety Budesonide (Budesonide 0.5 Mg/2 Ml Neb) 0.5 mg INH RTBID [facility] Last Admin: 09/06/23 07:37 Dose: 0.5 mg Quetiapine Fumarate (Quetiapine 25 Mg Tablet) 50 mg PO BID [facility] Last Admin: 09/06/23 08:46 Dose: 50 mg Cephalexin (Cephalexin 250 Mg Capsule) 500 mg PO Q6HR [facility] Stop: 09/08/23 19:00 Last Admin: 09/06/23 12:42 Dose: 500 mg Cholecalciferol (Cholecalciferol 400 Unit Tablet) 800 unit PO DAILY [facility] Last Admin: 09/06/23 08:46 Dose: 800 unit Acetaminophen (Acetaminophen) 1,000 mg in 100 mls @ 400 mls/hr IV Q8HR PRN PRN Reason: Moderate Pain (Level 4-6) Albuterol (Albuterol Neb 2.5 Mg/3 Ml) 2.5 mg INH RTQ4H PRN PRN Reason: Wheezing Last Admin: 09/06/23 07:38 Dose: 2.5 mg Aripiprazole (Aripiprazole 5 Mg Tablet) 10 mg PO DAILY [facility] Last Admin: 09/06/23 08:45 Dose: 10 mg Cyanocobalamin (Cyanocobalamin 500 Mcg Tablet) 500 mcg PO DAILY [facility] Last Admin: 09/06/23 08:46 Dose: 500 mcg Formoterol Fumarate (Formoterol Fumarate Neb 20 Mcg/2 Ml) 20 mcg INH RTBID [facility] Last Admin: 09/06/23 07:38 Dose: 20 mcg Gabapentin (Gabapentin 300 Mg Capsule) 300 mg PO TID [facility] Last Admin: 09/06/23 14:58 Dose: 300 mg Ketorolac Tromethamine (Ketorolac 15 Mg/Ml Vial) 15 mg IVP Q6HR [facility] Stop: 09/06/23 17:59 Last Admin: 09/06/23 12:42 Dose: 15 mg Lorazepam (Lorazepam 0.5 Mg Tablet) 0.5 mg PO Q6H PRN PRN Reason: Anxiety Losartan Potassium (Losartan 50 Mg Tablet) 50 mg PO DAILY [facility] Last Admin: 09/06/23 08:46 Dose: 50 mg Methocarbamol (Methocarbamol 500 Mg Tablet) 500 mg PO Q6HR PRN PRN Reason: Spasms Last Admin: 09/03/23 18:47 Dose: 500 mg Morphine Sulfate (Morphine 2 Mg/Ml Carpuject) 2 mg IVP Q2HR PRN PRN Reason: Pain 8 to 10 Last Admin: 09/04/23 23:51 Dose: 2 mg Ondansetron HCl (Ondansetron Odt 4 Mg Tablet) 4 mg TL Q6HR PRN PRN Reason: Nausea / Vomiting Oxycodone HCl (Oxycodone 5 Mg Tablet) 5 mg PO Q4HR PRN PRN Reason: Pain 5 to 7 Last Admin: 09/06/23 09:51 Dose: 5 mg Petrolatum (Petrolatum White 5 Gm Packet) 1 applic TOP Q4HR PRN PRN Reason: Dry Nasal [place] Polyethylene Glycol (Polyethylene Glycol 3350 17 Gm Packet) 17 gm PO DAILY [facility] Last Admin: 09/06/23 08:45 Dose: 17 gm Multivit/Folic Acid/Iron ( Vitamin Tablet) 1 tab PO DAILYWM [facility] Last Admin: 09/06/23 08:46 Dose: 1 tab Sertraline HCl (Sertraline 50 Mg Tablet) 100 mg PO DAILY [facility] Last Admin: 09/06/23 08:46 Dose: 100 mg Thiamine HCl (Thiamine 100 Mg Tablet) 100 mg PO DAILY [facility] Last Admin: 09/06/23 08:46 Dose: 100 mg Objective - Vital Signs/Intake & Output Vital Signs: Vital Signs x48h Temp Pulse Pulse Resp BP Pulse Ox O2 Flow Rate 09/06/23 11:17 36.6 C 107 H 18 123/69 97 09/06/23 07:46 78 20 2 Intake & Output: Intake & Output 09/03/23 09/04/23 09/05/23 09/06/23 23:59 23:59 23:59 23:59 Intake Total 1680 3420 3140 1560 Output Total 1845 300 563 930 Balance -165 3120 2577 630 Chest tube drainage 488cc yesterday. 190cc so far today - Objective General Appearance: positive: No acute distress Eyes Bilateral: positive: Normal inspection ENT: positive: ENT inspection nml Neck: positive: Nml inspection Respiratory: positive: Chest non-tender, No respiratory distress (no wheeze today, but poor inspiratory effort.) Cardiovascular: positive: Regular rate & rhythm Abdomen: positive: Non-tender Back: positive: Nml inspection Extremities: positive: Non-tender, Full ROM, Other (ulcerations are healing w/o drainage or erythema) Neurologic/Psychiatric: positive: Oriented x3, Motor nml, Mood/affect nml (less hyperverbal today, more re directable.) - Lab Results Fish Bones: 09/05/23 05:43 09/06/23 06:46 Other Labs: Lab Results x24hrs 09/06/23 Range/Units 06:46 Sodium 136 (135-145) mmol/L Potassium 4.3 (3.5-4.5) mmol/L Chloride 98 L (101-111) mmol/L Carbon Dioxide 37 H (21-32) mmol/L Anion Gap 1.0 L (6-13) BUN 7 (6-20) mg/dL Creatinine 0.5 L (0.6-1.3) mg/dL Estimated GFR (MDRD) 170 (>89) Glucose 130 H (74-104) mg/dL Calcium 8.6 (8.5-10.3) mg/dL ABX Reporting Has patient been on IV antibiotics over the past 48 hours?: No Assessment/Plan - Problem List (1) Hemothorax Impression: As a result of rib fractures sustained several weeks ago. Emergency department has placed a chest tube which is managed by surgery service. Continues to have serous drainage which is blood tinged. Dr Leger of General surgery is following the patient. We have discussed that the CT output is not decreasing. This patient needs transfer for further evaluation and treatment of his pleural effusion. Patient is amenable to transfer. He was not amenable in the past. he agrees that he will go to [facility] for further evaluation and treatment. his patient is requiring inpatient services >96 hours in length for admission for retained hemothorax after rib fracture. He has a chest tube in place that is draining >300cc of serosanguinous fluid per 12 hours. Most recent parenteral narcotics 09/03. General surgery needs the patient to remain with chest tube in place to drain fluid for further treatment of this pleural effusion. Drainage vo lume is not decreasing. discussed with Dr Leger, general surgery, and she agrees that transfer is warranted. This has been initiated. We are awaiting bed availability . Patient was excepted for transfer to the general surgery service under Dr. Villarreal. Provider to provider consultation was deferred as it will be several days before they have a bed available. He will not go through the emergency department he will be admitted directly to the floor at [facility]. (2) Ribs, multiple fractures Conclusion/Plan: Patient was encouraged to continue with incentive spirometry. He appears comfortable. . I have prescribed multimodal pain control. I will manage his pain with as needed oxycodone, scheduled gabapentin, scheduled Tylenol. He has IVP Morphine available for pain (3) Hypoxia Conclusion/Plan: Hypoxic on room air to the 80's. Continue with supplemental oxygen therapy. Continue with incentive spirometry to increase lung volumes. Elevated CO2 on BMP shows some hypercarbia. (4) Asthma Conclusion/Plan: There is no wheeze on exam today. he is not tachypneic. He appears comfortable. He is on home meds of albuterol, pulmicort and fluticasone/salmeterol. (5) Cellulitis of lower extremity Conclusion/Plan: With venous stasis ulcerations. appears resolved. Day #6/7 Keflex. At home he sleeps in a recliner not a bed and therefore does not elevate his legs at any time above his heart. He does not have any signs or symptoms of sepsis. will follow CBC for WBC count. (6) PTSD (post-traumatic stress disorder) Conclusion/Plan: Chronic PTSD. Patient is on sertraline as an outpatient. We will continue his outpatient sertraline. He smokes marijuana twice daily at home to control his anxiety. I am concerned about his risk for leaving AGAINST MEDICAL ADVICE due to his psychiatric disease. I have instituted p.o. Ativan as needed. Further research into his psychiatric medication was done. I started Abilify 10mg daily on 09/02. I have increased his seroquel to 50mg BID on 09/02. I am will maintain seroquel at currently dosing. he remains with signs of hypomania, but has been more pleasant to caregivers. (7) Urinary tract infection in male Conclusion/Plan: Urine culture from previous ED visit shows Aerococcus species. Greater than 100,000 colony-forming units. Sensitivities will not be run on this. Given his lower extremity cellulitis and the fact that this bacteria is usually sensitive to Keflex we will treat his cellulitis with Keflex instead of Bactrim. He has completed an adequate course of Keflex for this. (8) Folic acid deficiency Impression: Patient with a macrocytic anemia. He denies regular consumption of alcohol. States he stopped drinking beer about a month ago. Folate levels are decreased on anemia panel. I have ordered folic acid replacement. I will discharge him to home on this medication, with instructions to followup with PCP. He is established with PCP at [facility] (9) Hypomagnesemia Impression: Mag level low again today. 1.6. PO Mag Oxide ordered. (10) Hypocalcemia Impression: Calcium levels have dropped since the time of admission. I have ordered Calcium and Vit D supplementation which has improved his levels. Will help with rib healing.
[2023-09-06] MEDS: MAGNESIUM OXIDE 400 MG TABLET PO SCH (16:57)
[2023-09-07 05:46] LABS: BASOPHILS % (AUTO) 0.5 %; EOSINOPHILS # (AUTO) 0.3 10^3/uL (0.0-0.7); HCT - HEMATOCRIT 37.9 % (42.0-52.0); HGB - HEMOGLOBIN 12.6 g/dL (14.0-18.0); LYMPHOCYTES # (AUTO) 0.9 10^3/uL (1.5-3.5); LYMPHOCYTES % (AUTO) 14.6 %; MEAN CORPUSCULAR HEMOGLOBIN 37.1 pg (27.0-31.0); MEAN CORPUSCULAR HGB CONC 33.2 g/dL (32.0-36.0); MEAN CORPUSCULAR VOLUME 111.5 fL (80.0-94.0); MEAN PLATELET VOLUME 9.6 fL (7.4-11.4); MONOCYTES # (AUTO) 0.6 10^3/uL (0.0-1.0); MONOCYTES % (AUTO) 8.6 %; NEUTROPHILS # (AUTO) 4.6 10^3/uL (1.5-6.6); PLT - PLATELET COUNT 186 10^3/uL (130-450); RED CELL DISTRIBUTION WIDTH 14.3 % (12.0-15.0); WHITE BLOOD COUNT 6.4 x10^3/uL (4.8-10.8)
[2023-09-07 05:48] LABS: SLIDE REVIEW? Indicated
[2023-09-07 06:07] LABS: MAGNESIUM 1.7 mg/dL (1.7-2.3)
[2023-09-07 06:15] LABS: PLATELET ESTIMATE, MANUAL NORMAL (130-450,000) (NORMAL); RBC MORPHOLOGY (MULTIPLE) 1+ MACROCYTOSIS (NORMAL)
[2023-09-07 06:22] LABS: CALCIUM 8.6 mg/dL (8.5-10.3); CREATININE 0.5 mg/dL (0.6-1.3); POTASSIUM 4.4 mmol/L (3.5-4.5)
--- NOTE | 2023-09-07 08:14 | PROVIDER PROGRESS NOTE ---
Subjective - General Admit Date: 09/01/23 - Review of Systems All Other Systems: positive: Reviewed and negative - Other Other Information/Narrative: No acute issues overnight. CT remains in place, working well. Tolerating diet. No n/v. Objective - Patient Data Vital Signs: Vital Signs x48h Temp Pulse Pulse Resp BP Pulse Ox O2 Flow Rate 09/07/23 07:32 36.7 C 89 20 115/76 93 2 09/07/23 07:03 2 09/07/23 06:54 83 17 2 Intake & Output: Intake and Output Totals x24h 09/05/23 09/06/23 09/07/23 23:59 23:59 23:59 Intake Total 3140 1885 Output Total 563 1390 1000 Balance 2577 495 -1000 - Lab Results Lab Results: 09/07/23 05:28 09/07/23 05:28 Other Lab Results: Lab Results x24hrs 09/07/23 09/07/23 Range/Units 05:28 05:28 WBC 6.4 (4.8-10.8) x10^3/uL RBC 3.40 L (4.70-6.10) 10^6/uL Hgb 12.6 L (14.0-18.0) g/dL Hct 37.9 L (42.0-52.0) % MCV 111.5 H (80.0-94.0) fL MCH 37.1 H (27.0-31.0) pg MCHC 33.2 (32.0-36.0) g/dL RDW 14.3 (12.0-15.0) % Plt Count 186 (130-450) 10^3/uL MPV 9.6 (7.4-11.4) fL Neut # (Auto) 4.6 (1.5-6.6) 10^3/uL Lymph # (Auto) 0.9 L (1.5-3.5) 10^3/uL [place] # (Auto) 0.6 (0.0-1.0) 10^3/uL Eos # (Auto) 0.3 (0.0-0.7) 10^3/uL Baso # (Auto) 0.0 (0.0-0.1) 10^3/uL Absolute Nucleated RBC 0.00 x10^3/uL Nucleated RBC % 0.0 /100WBC Manual Slide Review Indicated Platelet Estimate NORMAL (130-450,000) (NORMAL) RBC Morph Micro Appear 1+ MACROCYTOSIS (NORMAL) Sodium 137 (135-145) mmol/L Potassium 4.4 (3.5-4.5) mmol/L Chloride 97 L (101-111) mmol/L Carbon Dioxide 38 H (21-32) mmol/L Anion Gap 2.0 L (6-13) BUN 7 (6-20) mg/dL Creatinine 0.5 L (0.6-1.3) mg/dL Estimated GFR (MDRD) 170 (>89) Glucose 117 H (74-104) mg/dL Calcium 8.6 (8.5-10.3) mg/dL Magnesium 1.7 (1.7-2.3) mg/dL - Current Medications Current Medications: Current Medications Generic Name Dose Route Start Last Admin Trade Name Freq PRN Reason Stop Dose Admin Albuterol 2.5 mg 09/01/23 14:23 09/06/23 18:40 Albuterol Neb 2.5 Mg/3 Ml INH 2.5 mg RTQ4H PRN Administration Wheezing Aripiprazole 10 mg 09/03/23 12:00 09/06/23 08:45 Aripiprazole 5 Mg Tablet PO 10 mg DAILY [facility] Administration Atorvastatin Calcium 40 mg 09/02/23 21:00 09/06/23 21:07 Atorvastatin 40 Mg Tablet PO 40 mg QPM [facility] Administration Budesonide 0.5 mg 09/02/23 19:00 09/07/23 06:52 Budesonide 0.5 Mg/2 Ml Neb INH 0.5 mg RTBID [facility] Administration Calcium Carbonate/Glycine 500 mg 09/04/23 01:01 09/04/23 01:41 Calcium Carbonate Chew 500 Mg Tablet PO 500 mg TID PRN Administration INDIGESTION Calcium Carbonate/Glycine 500 mg 09/05/23 09:00 09/06/23 08:46 Calcium Carb (Oyster Shell) 500 Mg Tablet PO 500 mg DAILY [facility] Administration Cephalexin 500 mg 09/01/23 19:00 09/07/23 05:52 Cephalexin 250 Mg Capsule PO 09/08/23 19:00 500 mg Q6HR [facility] Administration Cholecalciferol 800 unit 09/05/23 09:00 09/06/23 08:46 Cholecalciferol 400 Unit Tablet PO 800 unit DAILY [facility] Administration Cyanocobalamin 500 mcg 09/02/23 17:00 09/06/23 08:46 Cyanocobalamin 500 Mcg Tablet PO 500 mcg DAILY [facility] Administration Enoxaparin Sodium 40 mg 09/02/23 09:00 09/06/23 08:47 Enoxaparin 40 Mg/0.4 Ml Syringe SUBQ 40 mg DAILY [facility] Administration Formoterol Fumarate 20 mcg 09/02/23 19:00 09/07/23 06:52 Formoterol Fumarate Neb 20 Mcg/2 Ml INH 20 mcg RTBID [facility] Administration Gabapentin 300 mg 09/01/23 22:00 09/07/23 05:52 Gabapentin 300 Mg Capsule PO 300 mg TID [facility] Administration Losartan Potassium 50 mg 09/02/23 09:00 09/06/23 08:46 Losartan 50 Mg Tablet PO 50 mg DAILY [facility] Administration Methocarbamol 500 mg 09/02/23 06:59 09/03/23 18:47 Methocarbamol 500 Mg Tablet PO 500 mg Q6HR PRN Administration Spasms Morphine Sulfate 2 mg 09/01/23 14:14 09/07/23 02:19 Morphine 2 Mg/Ml Carpuject IVP 2 mg Q2HR PRN Administration Pain 8 to 10 Ondansetron HCl 4 mg 09/01/23 14:14 09/02/23 21:19 Ondansetron 4 Mg/2 Ml Vial IVP 4 mg Q6HR PRN Administration Nausea / Vomiting Oxycodone HCl 5 mg 09/01/23 14:14 09/07/23 05:52 Oxycodone 5 Mg Tablet PO 5 mg Q4HR PRN Administration Pain 5 to 7 Polyethylene Glycol 17 gm 09/04/23 09:00 09/06/23 08:45 Polyethylene Glycol 3350 17 Gm Packet PO 17 gm DAILY [facility] Administration Multivit/Folic Acid/Iron 1 tab 09/02/23 09:00 09/06/23 08:46 Vitamin Tablet PO 1 tab DAILYWM [facility] Administration Quetiapine Fumarate 50 mg 09/03/23 09:00 09/06/23 21:06 Quetiapine 25 Mg Tablet PO 50 mg BID [facility] Administration Sertraline HCl 100 mg 09/02/23 09:00 09/06/23 08:46 Sertraline 50 Mg Tablet PO 100 mg DAILY [facility] Administration Sodium Chloride 10 ml 09/01/23 14:14 09/07/23 02:19 Sodium Chloride Flush 0.9% 10 Ml Syringe IVP 10 ml PRN PRN Administration NEEDED PER PROVIDER ORDERS Sodium Chloride 10 ml 09/01/23 17:00 09/07/23 00:07 Sodium Chloride Flush 0.9% 10 Ml Syringe IVP 10 ml 0100,0900,1700 [facility] Administration Thiamine HCl 100 mg 09/02/23 09:00 09/06/23 08:46 Thiamine 100 Mg Tablet PO 100 mg DAILY [facility] Administration - Physical Exam Comments/Other: Gen: NAD CV: RRR Pulm: CT in place, 390 mL serous fluid output from tube in last 24 hours. No air leak, to water seal Abd: soft, NT, ND Impression/Plan - Problem List Problem List: 58 y/o M with h/o R rib fx 3-10 after fall from standing on 07/30/23. Admitted for large R pleural effusion vs hemothorax. 1. right pleural effusion - initially blood tinged, now serous with continued high output - CT to waterseal (no PTX) - participating in care with RT, still requiring 2L O2. (patient not on O2 prior to admission) - due to high output patient need consultation with thoracic surgery for likely VATS. Pending transfer to [facility] (patient has been accepted, awaiting bed). I agree with transfer for this service which is not available at our [facility]. 2. UTI, LE cellulitis, PTSD - per primary team.
[2023-09-07] MEDS: MAGNESIUM OXIDE 400 MG TABLET PO SCH (08:56)
[2023-09-07 16:22] LABS: PATHOLOGIST SLIDE COMMENTS SEE SEPARATE REPORT
--- NOTE | 2023-09-07 18:03 | PROVIDER PROGRESS NOTE ---
Subjective - Prog Note Date Prog Note Date: 09/07/23 Prog Note Time: 18:01 - Subjective Pt reports feeling: Improved (Still having pain at the chest tube site, but it's getting better) Current Medications - Current Medications Current Medications: Active Medications Albuterol (Albuterol Neb 2.5 Mg/3 Ml) 2.5 mg INH RTQ4H PRN PRN Reason: Wheezing Last Admin: 09/06/23 18:40 Dose: 2.5 mg Aripiprazole (Aripiprazole 5 Mg Tablet) 10 mg PO DAILY [facility] Last Admin: 09/07/23 08:59 Dose: 10 mg Atorvastatin Calcium (Atorvastatin 40 Mg Tablet) 40 mg PO QPM [facility] Last Admin: 09/06/23 21:07 Dose: 40 mg Budesonide (Budesonide 0.5 Mg/2 Ml Neb) 0.5 mg INH RTBID [facility] Last Admin: 09/07/23 06:52 Dose: 0.5 mg Calcium Carbonate/Glycine (Calcium Carbonate Chew 500 Mg Tablet) 500 mg PO TID PRN PRN Reason: INDIGESTION Last Admin: 09/04/23 01:41 Dose: 500 mg Calcium Carbonate/Glycine (Calcium Carb (Oyster Shell) 500 Mg Tablet) 500 mg PO DAILY [facility] Last Admin: 09/07/23 08:56 Dose: 500 mg Cephalexin (Cephalexin 250 Mg Capsule) 500 mg PO Q6HR [facility] Stop: 09/08/23 19:00 Last Admin: 09/07/23 16:29 Dose: 500 mg Cholecalciferol (Cholecalciferol 400 Unit Tablet) 800 unit PO DAILY [facility] Last Admin: 09/07/23 08:56 Dose: 800 unit Cyanocobalamin (Cyanocobalamin 500 Mcg Tablet) 500 mcg PO DAILY [facility] Last Admin: 09/07/23 08:56 Dose: 500 mcg Enoxaparin Sodium (Enoxaparin 40 Mg/0.4 Ml Syringe) 40 mg SUBQ DAILY [facility] Last Admin: 09/07/23 09:03 Dose: 40 mg Formoterol Fumarate (Formoterol Fumarate Neb 20 Mcg/2 Ml) 20 mcg INH RTBID [facility] Last Admin: 09/07/23 06:52 Dose: 20 mcg Gabapentin (Gabapentin 300 Mg Capsule) 300 mg PO TID [facility] Last Admin: 09/07/23 14:21 Dose: 300 mg Hydroxyzine Pamoate (Hydroxyzine Pamoate 25 Mg Capsule) 25 mg PO Q6H PRN PRN Reason: Anxiety Acetaminophen (Acetaminophen) 1,000 mg in 100 mls @ 400 mls/hr IV Q8HR PRN PRN Reason: Moderate Pain (Level 4-6) Lorazepam (Lorazepam 0.5 Mg Tablet) 0.5 mg PO Q6H PRN PRN Reason: Anxiety Losartan Potassium (Losartan 50 Mg Tablet) 50 mg PO DAILY [facility] Last Admin: 09/07/23 08:57 Dose: 50 mg Magnesium Oxide (Magnesium Oxide 400 Mg Tablet) 400 mg PO TIDWM [facility] Last Admin: 09/07/23 16:30 Dose: 400 mg Methocarbamol (Methocarbamol 500 Mg Tablet) 500 mg PO Q6HR PRN PRN Reason: Spasms Last Admin: 09/03/23 18:47 Dose: 500 mg Morphine Sulfate (Morphine 2 Mg/Ml Carpuject) 2 mg IVP Q2HR PRN PRN Reason: Pain 8 to 10 Last Admin: 09/07/23 14:31 Dose: 2 mg Ondansetron HCl (Ondansetron Odt 4 Mg Tablet) 4 mg TL Q6HR PRN PRN Reason: Nausea / Vomiting Ondansetron HCl (Ondansetron 4 Mg/2 Ml Vial) 4 mg IVP Q6HR PRN PRN Reason: Nausea / Vomiting Last Admin: 09/02/23 21:19 Dose: 4 mg Oxycodone HCl (Oxycodone 5 Mg Tablet) 5 mg PO Q4HR PRN PRN Reason: Pain 5 to 7 Last Admin: 09/07/23 10:54 Dose: 5 mg Petrolatum (Petrolatum White 5 Gm Packet) 1 applic TOP Q4HR PRN PRN Reason: Dry Nasal [place] Polyethylene Glycol (Polyethylene Glycol 3350 17 Gm Packet) 17 gm PO DAILY [facility] Last Admin: 09/07/23 08:57 Dose: 17 gm Multivit/Folic Acid/Iron ( Vitamin Tablet) 1 tab PO DAILYWM [facility] Last Admin: 09/07/23 08:56 Dose: 1 tab Quetiapine Fumarate (Quetiapine 25 Mg Tablet) 50 mg PO BID [facility] Last Admin: 09/07/23 08:56 Dose: 50 mg Sertraline HCl (Sertraline 50 Mg Tablet) 100 mg PO DAILY [facility] Last Admin: 09/07/23 08:56 Dose: 100 mg Sodium Chloride (Sodium Chloride Flush 0.9% 10 Ml Syringe) 10 ml IVP PRN PRN PRN Reason: NEEDED PER PROVIDER ORDERS Last Admin: 09/07/23 02:19 Dose: 10 ml Sodium Chloride (Sodium Chloride Flush 0.9% 10 Ml Syringe) 10 ml IVP 0100,0900,1700 [facility] Last Admin: 09/07/23 16:30 Dose: 10 ml Thiamine HCl (Thiamine 100 Mg Tablet) 100 mg PO DAILY [facility] Last Admin: 09/07/23 08:57 Dose: 100 mg Acetaminophen [Tylenol] 500 mg PO DAILY 08/20/23 Atorvastatin Calcium 40 mg PO QPM 09/02/23 Fluticasone Propion/Salmeterol [Fluticasone-Salmeterol 250-50] 1 puffs INH BID 09/02/23 Gabapentin [Neurontin] 300 mg PO TID 09/02/23 Losartan [Cozaar] 50 mg PO DAILY 09/02/23 Naproxen 500 mg PO DAILY PRN 09/02/23 Objective - Vital Signs/Intake & Output Reviewed Vital Signs: Yes Vital Signs: Vital Signs x48h Temp Pulse Resp BP Pulse Ox O2 Flow Rate 09/07/23 15:29 36.7 C 92 16 116/75 90 L 2 Intake & Output: Intake & Output 09/04/23 09/05/23 09/06/23 09/07/23 23:59 23:59 23:59 23:59 Intake Total 3420 3140 1885 1820 Output Total 773 932 3397 2475 Balance 3120 9949 409 -491 - Objective General Appearance: positive: No acute distress Eyes Bilateral: positive: Normal inspection Respiratory: positive: Other (Mildly diminished breath sounds at the base of the right lung, chest tube in place with waterseal, producing serosanguineous fluid ) Cardiovascular: positive: Regular rate & rhythm, No murmur, No gallop Abdomen: positive: Non-tender, No organomegaly, Nml bowel sounds Skin: positive: Color nml Neurologic/Psychiatric: positive: Oriented x3, CN's nml (2-12) - Lab Results Fish Bones: 09/07/23 05:28 09/07/23 05:28 Other Labs: Lab Results x24hrs 0609/07/23 09/01/23 Range/Units 05:28 05:28 12:02 WBC 6.4 (4.8-10.8) x10^3/uL RBC 3.40 L (4.70-6.10) 10^6/uL Hgb 12.6 L (14.0-18.0) g/dL Hct 37.9 L (42.0-52.0) % MCV 111.5 H (80.0-94.0) fL MCH 37.1 H (27.0-31.0) pg MCHC 33.2 (32.0-36.0) g/dL RDW 14.3 (12.0-15.0) % Plt Count 186 (130-450) 10^3/uL MPV 9.6 (7.4-11.4) fL Neut # (Auto) 4.6 (1.5-6.6) 10^3/uL Lymph # (Auto) 0.9 L (1.5-3.5) 10^3/uL [place] # (Auto) 0.6 (0.0-1.0) 10^3/uL Eos # (Auto) 0.3 (0.0-0.7) 10^3/uL Baso # (Auto) 0.0 (0.0-0.1) 10^3/uL Absolute Nucleated RBC 0.00 x10^3/uL Nucleated RBC % 0.0 /100WBC Manual Slide Review Indicated Platelet Estimate NORMAL (130-450,000) (NORMAL) RBC Morph Micro Appear 1+ MACROCYTOSIS (NORMAL) Smear Path Review SEE SEPARATE REPORT Sodium 137 (135-145) mmol/L Potassium 4.4 (3.5-4.5) mmol/L Chloride 97 L (101-111) mmol/L Carbon Dioxide 38 H (21-32) mmol/L Anion Gap 2.0 L (6-13) BUN 7 (6-20) mg/dL Creatinine 0.5 L (0.6-1.3) mg/dL Estimated GFR (MDRD) 170 (>89) Glucose 117 H (74-104) mg/dL Calcium 8.6 (8.5-10.3) mg/dL Magnesium 1.7 (1.7-2.3) mg/dL Assessment/Plan - Problem List (1) Hemothorax Impression: 2/2 to rib fx Chest in place, followed by gen surgery - appreciate assistance Waterseal with no leak, no PTX Still high output, but now serosanginous fluid vs heme colored Due to persistence of high output, needs CT Sx consult, which is not available at this hospital, therefore transfer process has been initiated for transfer to [facility] for CT consult. Possible VATS. Pt accepted for transfer, but pending bed availabilit Currently stable on 2L awaiting transfer. (2) Hypocalcemia Impression: Ca improved to 8.6 Cont to monitor (3) Hypomagnesemia Impression: Etiology multifactorial, poor nutrion Mg 1.7 Increased PO from QD to TID WM (4) Hypoxia Impression: 2/2 above Stable on 2L NC Cont plan as above, supportive care, wean O2 as able but not expected to resolved w/ out resolution of hemothorax (5) PTSD (post-traumatic stress disorder) Impression: stable Cont meds (6) Asthma Impression: Stable Not in exacerbation PRN nebs (7) Cellulitis Impression: Resolving Keflex to complete tomorrow Qualifiers: Site of cellulitis: extremity Site of cellulitis of extremity: lower extremity Laterality: left Qualified Code(s): L03.116 - Cellulitis of left lower limb
[2023-09-08 08:32] VITALS: BP 127/83; O2SAT 92
--- NOTE | 2023-09-08 08:32 | PROVIDER PROGRESS NOTE ---
Subjective - General Admit Date: 09/01/23 - Review of Systems All Other Systems: positive: Reviewed and negative - Other Other Information/Narrative: Some discomfort at chest tube site, otherwise doing well. Tolerating diet, no n/v. Patient is very worried about his animals this morning. Objective - Patient Data Vital Signs: Vital Signs x48h Temp Pulse Resp BP Pulse Ox 09/08/23 08:26 36.6 C 105 H 20 127/83 H 92 Intake & Output: Intake and Output Totals x24h 09/06/23 09/07/23 09/08/23 23:59 23:59 23:59 Intake Total 1885 3700 600 Output Total 1390 3745 350 Balance 495 -45 250 - Lab Results Lab Results: 09/07/23 05:28 09/07/23 05:28 Other Lab Results: Lab Results x24hrs 09/01/23 Range/Units 12:02 Smear Path Review SEE SEPARATE REPORT - Current Medications Current Medications: Current Medications Generic Name Dose Route Start Last Admin Trade Name Freq PRN Reason Stop Dose Admin Albuterol 2.5 mg 09/01/23 14:23 09/06/23 18:40 Albuterol Neb 2.5 Mg/3 Ml INH 2.5 mg RTQ4H PRN Administration Wheezing Aripiprazole 10 mg 09/03/23 12:00 09/07/23 08:59 Aripiprazole 5 Mg Tablet PO 10 mg DAILY SUSANA Administration Atorvastatin Calcium 40 mg 09/02/23 21:00 09/07/23 21:07 Atorvastatin 40 Mg Tablet PO 40 mg QPM SUSANA Administration Budesonide 0.5 mg 09/02/23 19:00 09/07/23 20:34 Budesonide 0.5 Mg/2 Ml Neb INH 0.5 mg RTBID SUSANA Administration Calcium Carbonate/Glycine 500 mg 09/04/23 01:01 09/04/23 01:41 Calcium Carbonate Chew 500 Mg Tablet PO 500 mg TID PRN Administration INDIGESTION Calcium Carbonate/Glycine 500 mg 09/05/23 09:00 09/07/23 08:56 Calcium Carb (Oyster Shell) 500 Mg Tablet PO 500 mg DAILY SUSANA Administration Cephalexin 500 mg 09/01/23 19:00 09/08/23 06:40 Cephalexin 250 Mg Capsule PO 09/08/23 19:00 500 mg Q6HR SUSANA Administration Cholecalciferol 800 unit 09/05/23 09:00 09/07/23 08:56 Cholecalciferol 400 Unit Tablet PO 800 unit DAILY SUSANA Administration Cyanocobalamin 500 mcg 09/02/23 17:00 09/07/23 08:56 Cyanocobalamin 500 Mcg Tablet PO 500 mcg DAILY SUSANA Administration Enoxaparin Sodium 40 mg 09/02/23 09:00 09/07/23 09:03 Enoxaparin 40 Mg/0.4 Ml Syringe SUBQ 40 mg DAILY SUSANA Administration Formoterol Fumarate 20 mcg 09/02/23 19:00 09/07/23 20:35 Formoterol Fumarate Neb 20 Mcg/2 Ml INH 20 mcg RTBID [facility] Administration Gabapentin 300 mg 09/01/23 22:00 09/08/23 06:40 Gabapentin 300 Mg Capsule PO 300 mg TID [facility] Administration Losartan Potassium 50 mg 09/02/23 09:00 09/07/23 08:57 Losartan 50 Mg Tablet PO 50 mg DAILY SUSANA Administration Magnesium Oxide 400 mg 09/07/23 08:00 09/07/23 16:30 Magnesium Oxide 400 Mg Tablet PO 400 mg TIDWM SUSANA Administration Methocarbamol 500 mg 09/02/23 06:59 09/03/23 18:47 Methocarbamol 500 Mg Tablet PO 500 mg Q6HR PRN Administration Spasms Morphine Sulfate 2 mg 09/01/23 14:14 09/08/23 00:04 Morphine 2 Mg/Ml Carpuject IVP 2 mg Q2HR PRN Administration Pain 8 to 10 Ondansetron HCl 4 mg 09/01/23 14:14 09/02/23 21:19 Ondansetron 4 Mg/2 Ml Vial IVP 4 mg Q6HR PRN Administration Nausea / Vomiting Oxycodone HCl 5 mg 09/01/23 14:14 09/08/23 07:33 Oxycodone 5 Mg Tablet PO 5 mg Q4HR PRN Administration Pain 5 to 7 Polyethylene Glycol 17 gm 09/04/23 09:00 09/07/23 08:57 Polyethylene Glycol 3350 17 Gm Packet PO 17 gm DAILY [facility] Administration Multivit/Folic Acid/Iron 1 tab 09/02/23 09:00 09/07/23 08:56 Vitamin Tablet PO 1 tab DAILYWM [facility] Administration Quetiapine Fumarate 50 mg 09/03/23 09:00 09/07/23 21:07 Quetiapine 25 Mg Tablet PO 50 mg BID SUSANA Administration Sertraline HCl 100 mg 09/02/23 09:00 09/07/23 08:56 Sertraline 50 Mg Tablet PO 100 mg DAILY SUSANA Administration Sodium Chloride 10 ml 09/01/23 14:14 09/07/23 02:19 Sodium Chloride Flush 0.9% 10 Ml Syringe IVP 10 ml PRN PRN Administration NEEDED PER PROVIDER ORDERS Sodium Chloride 10 ml 09/01/23 17:00 09/07/23 19:50 Sodium Chloride Flush 0.9% 10 Ml Syringe IVP 10 ml 0100,0900,1700 SUSANA Administration Thiamine HCl 100 mg 09/02/23 09:00 09/07/23 08:57 Thiamine 100 Mg Tablet PO 100 mg DAILY SUSANA Administration - Physical Exam Comments/Other: Gen: NAD, alert and oriented CV: RRR Pulm: on 2L NC, CT in place to water seal without air leak. 420mL serousang out put yesterday. Abd: nttp, no r/g Impression/Plan - Problem List Problem List: 58 y/o M with h/o R rib fx 3-10 after fall from standing on 07/30/23. Admitted for large R pleural effusion vs hemothorax. 1. right pleural effusion - initially blood tinged, now serous with continued high output - CT to waterseal (no PTX) - participating in care with RT, still requiring 2L O2. (patient not on O2 prior to admission) - CT continues to have high output. Thoracic surgery consutation for likely VATS next step in care at this point. Pending transfer to [facility] (patient has been accepted, awaiting bed). I agree with transfer for this service which is not available at [facility]. 2. UTI, LE cellulitis, PTSD - per primary team.
--- NOTE | 2023-09-08 08:48 | XRAY Report ---
PROCEDURE: Chest 1V INDICATIONS: chest tube monitoring TECHNIQUE: One view of the chest was acquired. COMPARISON: 09/02/2023. FINDINGS: Surgical changes and devices: Right chest tube is somewhat retracted. The tip is projecting within t he hemithorax. Sidehole is within the subcutaneous tissues.. Lungs and pleura: No pneumothorax. Continued opacity involving the lower two thirds of the right hem ithorax, presumed to represent fluid and atelectasis. Mediastinum: Mediastinal contours appear normal. Heart size is normal. Bones and chest wall: No suspicious bony lesions. Overlying soft tissues appear unremarkable. IMPRESSION: Chest tubes somewhat retracted. No pneumothorax. Continued opacification of lower two thirds of the r ight hemithorax, presumed to represent fluid and atelectasis. Reviewed by: Hossein Serna MD on 09/08/2023 8:47 AM PDT Approved by: Hossein Serna MD on 09/08/2023 8:47 AM PDT Station ID: [id number]
--- NOTE | 2023-09-08 09:14 | PROVIDER PROGRESS NOTE ---
Subjective - Prog Note Date Prog Note Date: 09/08/23 Prog Note Time: 09:10 - Subjective Pt reports feeling: No change Subjective: Patient reports that pain is well-controlled. He just got some oxycodone. He has some concerns about the care of his animals at home. At this point he is relatively reassured that he believes his neighbors are taking care of them. He has an appointment with his [facility] counselor at 830 this morning he will do this online. Current Medications - Current Medications Current Medications: Medications Atorvastatin Calcium (Atorvastatin 40 Mg Tablet) 40 mg PO QPM SUSANA Last Admin: 09/07/23 21:07 Dose: 40 mg Formoterol Fumarate (Formoterol Fumarate Neb 20 Mcg/2 Ml) 20 mcg INH RTBID SUSANA Last Admin: 09/07/23 20:35 Dose: 20 mcg Acetaminophen (Acetaminophen) 1,000 mg in 100 mls @ 400 mls/hr IV Q8HR PRN PRN Reason: Moderate Pain (Level 4-6) Methocarbamol (Methocarbamol 500 Mg Tablet) 500 mg PO Q6HR PRN PRN Reason: Spasms Last Admin: 09/03/23 18:47 Dose: 500 mg Albuterol (Albuterol Neb 2.5 Mg/3 Ml) 2.5 mg INH RTQ4H PRN PRN Reason: Wheezing Last Admin: 09/06/23 18:40 Dose: 2.5 mg Aripiprazole (Aripiprazole 5 Mg Tablet) 10 mg PO DAILY SUSANA Last Admin: 09/08/23 08:54 Dose: 10 mg Budesonide (Budesonide 0.5 Mg/2 Ml Neb) 0.5 mg INH RTBID SUSANA Last Admin: 09/07/23 20:34 Dose: 0.5 mg Cephalexin (Cephalexin 250 Mg Capsule) 500 mg PO Q6HR SUSANA Stop: 09/08/23 19:00 Last Admin: 09/08/23 06:40 Dose: 500 mg Cholecalciferol (Cholecalciferol 400 Unit Tablet) 800 unit PO DAILY SUSANA Last Admin: 09/08/23 08:54 Dose: 800 unit Cyanocobalamin (Cyanocobalamin 500 Mcg Tablet) 500 mcg PO DAILY SUSANA Last Admin: 09/08/23 08:55 Dose: 500 mcg Enoxaparin Sodium (Enoxaparin 40 Mg/0.4 Ml Syringe) 40 mg SUBQ DAILY [facility] Last Admin: 09/08/23 08:56 Dose: 40 mg Gabapentin (Gabapentin 300 Mg Capsule) 300 mg PO TID [facility] Last Admin: 09/08/23 06:40 Dose: 300 mg Magnesium Oxide (Magnesium Oxide 400 Mg Tablet) 400 mg PO TIDWM [facility] Last Admin: 09/08/23 08:55 Dose: 400 mg Morphine Sulfate (Morphine 2 Mg/Ml Carpuject) 2 mg IVP Q2HR PRN PRN Reason: Pain 8 to 10 Last Admin: 09/08/23 00:04 Dose: 2 mg Ondansetron HCl (Ondansetron Odt 4 Mg Tablet) 4 mg TL Q6HR PRN PRN Reason: Nausea / Vomiting Oxycodone HCl (Oxycodone 5 Mg Tablet) 5 mg PO Q4HR PRN PRN Reason: Pain 5 to 7 Last Admin: 09/08/23 07:33 Dose: 5 mg Quetiapine Fumarate (Quetiapine 25 Mg Tablet) 50 mg PO BID [facility] Last Admin: 09/08/23 08:54 Dose: 50 mg Sertraline HCl (Sertraline 50 Mg Tablet) 100 mg PO DAILY [facility] Last Admin: 09/08/23 08:54 Dose: 100 mg Objective - Vital Signs/Intake & Output Vital Signs: Vital Signs x48h Temp Pulse Resp BP Pulse Ox 09/08/23 08:26 36.6 C 105 H 20 127/83 H 92 on room air Intake & Output: Intake & Output 09/05/23 09/06/23 09/07/23 09/08/23 23:59 23:59 23:59 23:59 Intake Total 3140 1885 3700 600 Output Total 563 1390 3745 350 Balance 2577 495 -45 250 430cc on 09/06 150ml from [place] to 5am today - Objective General Appearance: positive: No acute distress, Alert Eyes Bilateral: positive: Normal inspection ENT: positive: ENT inspection nml Neck: positive: Nml inspection Respiratory: positive: Chest non-tender, No respiratory distress, Breath sounds nml Cardiovascular: positive: Regular rate & rhythm Abdomen: positive: No distention Back: positive: Nml inspection Skin: positive: Color nml, Other (cellulitis resolved. dry healing ulcers) Extremities: positive: Non-tender Neurologic/Psychiatric: positive: Oriented x3 - Lab Results Fish Bones: 09/07/23 05:28 09/07/23 05:28 Other Labs: Lab Results x24hrs 09/01/23 Range/Units 12:02 Smear Path Review SEE SEPARATE REPORT ABX Reporting Has patient been on IV antibiotics over the past 48 hours?: No Assessment/Plan - Problem List (1) Hemothorax Impression: 2/2 to rib fx Chest tube in place, followed by gen surgery - appreciate assistance. note reviewed. Waterseal with no leak, no PTX Still high output, but now serosanginous fluid vs heme colored Due to persistence of high output, needs CT Sx consult, which is not available at this hospital, therefore transfer process has been initiated for transfer to [facility] for CT consult. Possible VATS. Pt accepted for transfer, but pending bed availability. Provider to provider conversation is pending Is currently on room air, intmittently needing @L NC (2) Hypocalcemia Impression: Ca improved to 8.6 No labs today, will check BMP in AM (3) Hypomagnesemia Impression: Etiology multifactorial, poor nutrition Mg 1.7 Increased PO from QD to TID WM on 09/06 Check Mag level in AM (4) Hypoxia Impression: 2/2 above doing well on room air today, but will continue to monitor O2 sats. Cont plan as above, supportive care, wean O2 as able but not expected to resolved w/ out resolution of hemothorax (5) PTSD (post-traumatic stress disorder) Impression: stable Cont meds (6) Asthma Impression: Stable Not in exacerbation PRN nebs (7) Cellulitis Impression: resolved. Keflex finishing today. Qualifiers:
--- NOTE | 2023-09-08 12:37 | Discharge Plan ---
Discharge Plan Problem Reviewed?: Yes Disposition: 02 Transfer Acute Care Hosp Condition: Good Diet: Regular Activity Restrictions: No Restrictions Shower Restrictions: Yes (chest tube in place) Weight Bearing: Full Weight No Smoking: If you smoke, Please STOP! Call for help.
--- NOTE | 2023-09-08 12:46 | DISCHARGE SUMMARY ---
"Discharge Summary Admit Date: 09/01/23 Discharge Date: 09/08/23 Discharging Provider: Rachele Casper PA-C Code Status: Attempt Resuscitation Condition at Discharge: Good Discharge Disposition: 02 Transfer Acute Care Hosp - DIAGNOSES Admission Diagnoses: Hemothorax Multiple rib fractures Hypoxia Asthma Cellulitis of lower extremity PTSD Urinary tract infection Discharge Diagnoses with Status of Each Condition: 1) Hemothorax Impression: 2/2 to rib fx Chest tube in place, followed by gen surgery - In agreement with transfer to [facility] for possible VATS. Waterseal with no leak, no PTX Still high output, but now serosanginous fluid vs heme colored Due to persistence of high output, needs CT Sx consult, which is not available at this hospital, therefore transfer process has been initiated for transfer to [facility] for CT consult. Possible VATS. Pt accepted for transfer, but pending bed availability. Provider to provider conversation completed. Dr Vale spoke with Rosi Moore at [facility] who has accepted the patient in transfer. Is currently on room air, intmittently needing 2L NC (2) Hypocalcemia Impression: Ca improved to 8.6 No labs today. Should check BMP in AM. (3) Hypomagnesemia Impression: Etiology multifactorial, poor nutrition Mg 1.7 Increased PO from QD to TID WM on 09/06 Should check mag level in a.m. (4) Hypoxia Impression: 2/2 above doing well on room air today, but will continue to monitor O2 sats. Cont plan as above, supportive care, wean O2 as able but not expected to resolved w/ out resolution of hemothorax (5) PTSD (post-traumatic stress disorder) Impression: stable Cont meds (6) Asthma Impression: Stable Not in exacerbation PRN nebs (7) Cellulitis Impression: resolved. Keflex finishing today. (8) Urinary tract infection Cultures positive for Aerococcus. Patient was being treated for lower extremity cellulitis. Keflex should cover this. - HPI History of Present Illness: presented to the emergency department on 08/31/2023 with complaints of shortness of air. Imaging showed rib fractures and a retained hemothorax. Patient was a dvised to have a chest tube placed and come into the hospital however he left AGAINST MEDICAL ADVICE stating that he had to arrange for the care of his cat. He returned to the emergency department the following day with similar complaints. O2 sat of 85% on room air at this point he agrees to stay for treatment. Right-sided chest tube was placed in the emergency department by the emergency department physician at the direction of the surgeon. Surgery was consulted for traumatic rib fractures and retained hemothorax. Mr. Cisneros has been in his usual state of health prior to his fall 3-4 Weddays ago. He states over the last several years he has had some intermittent swelling and erythema of his legs with some sores that seem to come and go. He states that he does not drink alcohol every day he does smoke marijuana about twice a day. And he had had 1 beer to drink at the time that he fell. 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 He states that recently his legs have been a little more painful than usual and he has noticed some swelling. Additionally review of outpatient records reveals a statement that the fall happened on 07/30/2023. He was apparently admitted at the [facility] for several days and then was discharged to home. He had been treating his pain at home with [id number] pain relievers, and then was prescribed indomethacin and lidocaine patches. - CONSULTS | PROCEDURES Consultations: General surgery for chest tube management. - HOSPITAL COURSE Hospital Course: Chest tube placed by the emergency department and managed by general surgery. Pain was initially not well-controlled probably due to his anxiety not being well-controlled. With time we will be able to determine an appropriate medication history and resume his sertraline and Abilify. With regards to the hemothorax patient initially had high output of serosanguineous fluid which by hospital day 3 had turned to primarily serous fluid however remained much greater than 250 cc per 24 hours. By hospital day 4 it was clear that the drainage was not decreasing that patient may require specialized care. On hospital day 4 patient was resistant to transfer. However on hospital day 5 he consented to transfer. [facility], Dr. Villarreal accepted the patient in transfer pending bed availability. With regards to his rib fractures he was treated was treated with multimodal pain control and incentive spirometry. With regards to his hypoxia his asthma was controlled with albuterol nebulizers, Pulmicort nebulizer treatments. His hypoxia was thought to be multifactorial, due to asthma and the presence of a chest tube. Cellulitis of the left lower extremity. incidentally found. patient with chronic edema- sleeps in a recliner at home, and never is able to elevate his legs above his heart. His cellulitis resolved quite quickly with lower extremity elevation and Keflex. Electrolyte abnormalities of hypocalcemia, hypomagnesiumia incidentally found and corrected. He was never symptomatic. - ALLERGIES Allergies/Adverse Reactions: Allergies Allergy/AdvReac Type Severity Reaction Status Date / Time No Known Drug Allergies Allergy Verified 09/01/23 10:45 - MEDICATIONS Home Medications: Ambulatory Orders Medication Instructions Recorded Confirmed Albuterol Sulf [Ventolin Hfa 1 - 2 puffs INH Q4HR PRN #1 ea 08/20/23 09/02/23 Inhaler] Atorvastatin Calcium 40 mg PO QPM 09/02/23 09/02/23 Fluticasone Propion/Salmeterol 1 puffs INH BID 09/02/23 09/02/23 [Fluticasone-Salmeterol 250-50] Naproxen 500 mg PO DAILY PRN 09/02/23 09/02/23 ARIPiprazole [Abilify] 10 mg PO DAILY tab 09/08/23 Acetaminophen 1,000 mg/100 ml 1,000 mg IV Q8HR PRN each 09/08/23 [Acetaminophen] Albuterol 2.5 mg INH RTQ4H PRN ml 09/08/23 Budesonide [Pulmicort] 0.5 mg INH RTBID ml 09/08/23 Calcium Carb (Oyster Shell) 500 mg PO DAILY tab 09/08/23 [[place]-500] Calcium Carbonate [Tums (Calcium 500 mg PO TID PRN tab 09/08/23 Carbonate 500mg)] Enoxaparin [Lovenox] 40 mg SUBQ DAILY ml 09/08/23 Gabapentin [Neurontin] 300 mg PO TID cap 09/08/23 LORazepam [Ativan] 0.5 mg PO Q6H PRN tab 09/08/23 Losartan [Cozaar] 50 mg PO DAILY tab 09/08/23 Magnesium Oxide [Mag Ox] 400 mg PO TIDWM tab 09/08/23 Ondansetron Odt [Zofran Odt] 4 mg TL Q6HR PRN tab 09/08/23 QUEtiapine [SEROquel] 50 mg PO BID tab 09/08/23 Sertraline [Zoloft] 100 mg PO DAILY tab 09/08/23 Thiamine [Vitamin B-1] 100 mg PO DAILY tab 09/08/23 hydrOXYzine PAMOATE [Vistaril] 25 mg PO Q6H PRN cap 09/08/23 methocarbamoL [Robaxin] 500 mg PO Q6HR PRN tab 09/08/23 oxyCODONE [Roxicodone] 5 mg PO Q4HR PRN tab 09/08/23 - PHYSICAL EXAM AT DISCHARGE General Appearance: positive: No acute distress Eyes Bilateral: positive: Normal inspection ENT: positive: ENT inspection nml Neck: positive: Nml inspection Respiratory: positive: No respiratory distress, Breath sounds nml Cardiovascular: positive: Regular rate & rhythm Peripheral Pulses: positive: 2+ Abdomen: positive: No distention Back: positive: Nml inspection Skin: positive: Color nml Extremities: positive: Full ROM, Nml appearance Neurologic/Psychiatric: positive: Oriented x3 - LABS Result Diagrams: 09/07/23 05:28 09/07/23 05:28 - FOLLOW UP Follow Up: Will transfer to [facility]. Will followup with his Primary care provider at [facility] primary care clinic at an appropriate interval after discharge from [facility]. - TIME SPENT Time Spent in Discharge (Minutes): 45"
[2023-09-08] MEDS: LORazepam 0.5 MG TABLET PO PRN (13:18)
== END 2023-09-08 13:45 | disposition short-term general hospital (02) | DRG 200 ==
LOC: EDUNIT# → ED 10:23 → MS2 14:14
PROVIDERS: ADMIT Physician Assistant Medical; ATTEND Physician Assistant Medical
PROC: 0W9930Z Drainage of Right Pleural Cavity with Drainage Device, Percutaneous Approach (ICD-10-PCS; principal; 2023-09-01)
DX: S27.1XXA Traumatic hemothorax, initial encounter (principal); L03.116 Cellulitis of left lower limb; N39.0 Urinary tract infection, site not specified; S22.41XS Multiple fractures of ribs, right side, sequela; I10 Essential (primary) hypertension; J45.909 Unspecified asthma, uncomplicated; F41.9 Anxiety disorder, unspecified; F31.9 Bipolar disorder, unspecified; R09.02 Hypoxemia; F43.10 Post-traumatic stress disorder, unspecified; E83.51 Hypocalcemia; E83.42 Hypomagnesemia; B96.89 Other specified bacterial agents as the cause of diseases classified elsewhere; W19.XXXA Unspecified fall, initial encounter; E53.8 Deficiency of other specified B group vitamins; D53.9 Nutritional anemia, unspecified; T41.5X5A Adverse effect of therapeutic gases, initial encounter; Y92.239 Unspecified place in hospital as the place of occurrence of the external cause; J34.89 Other specified disorders of nose and nasal sinuses; R09.81 Nasal congestion; Z79.899 Other long term (current) drug therapy
CPT/HCPCS: 32551; 36415; 71045; 71260; 80048; 80053; 81001; 82607; 82746; 83735; 84484; 85014; 85018; 85025; 85027; 85610; 86850; 86900; 86901; 87086; 87635; 93005; 94640; 96374; 96375; 99152; 99284; 99285; 99291; A9270; J0131; J1170; J1650; J2060; J7626; Q9967; 81003

== ENCOUNTER 2023-09-18 16:11 | Outpatient (CLI) | payer MEDICAID | END 2023-09-18 23:59 | disposition EMS.NT | LOC: EMS 16:11 | DX: Z03.89 Encounter for observation for other suspected diseases and conditions ruled out (principal) ==

== ENCOUNTER 2023-09-19 12:07 | Outpatient (CLI) | payer MEDICAID | END 2023-09-19 23:59 | disposition EMS.NT | LOC: EMS 12:07 | DX: Z53.9 Procedure and treatment not carried out, unspecified reason (principal) ==

== ENCOUNTER 2023-09-20 06:51 | Outpatient (CLI) | payer MEDICAID | END 2023-09-20 06:52 | disposition critical access hospital (66) | LOC: EMS 06:51 | DX: R06.02 Shortness of breath (principal); R45.89 Other symptoms and signs involving emotional state; M79.89 Other specified soft tissue disorders | CPT/HCPCS: A0425; A0429; A0999 ==

== ENCOUNTER 2023-09-20 07:23 | Emergency (ER) | payer MEDICAID ==
--- NOTE | 2023-09-20 07:46 | ED Physician Documentation ---
PD HPI DYSPNEA - Stated complaint Stated Complaint: SOA - Chief complaint Chief Complaint: Resp - History obtained from History obtained from: Patient - History of Present Illness Timing - onset: How many days ago (has had rib pain and dyspnea for coule months due to injry with rib fractures and effusion. Was at [facility] and had treatment. Not following up with there.) Inciting event(s): No: Out of meds, URI Improved by: Inhaler/neb Worsened by: Exertion, Coughing Associated symptoms: Wheezing, Chest pain / discomfort, Palpitations, Unilateral edema (some edema both legs but more in left the past week or so.). No: Fever, Cough Review of Systems Constitutional: denies: Fever, Chills, Myalgias Cardiac: reports: Chest pain / pressure, Pedal edema. denies: Palpitations, Calf pain Respiratory: reports: Dyspnea, Cough, Wheezing PD PAST MEDICAL HISTORY - Past Medical History Past Medical History: Yes Cardiovascular: Hypertension Respiratory: Asthma, Other Neuro: None Endocrine/Autoimmune: None GI: GERD, Other : Incontinence HEENT: Chronic sinusitis Psych: Depression, Anxiety, Bipolar disorder, Post traumatic stress disorder, Claustrophobia Musculoskeletal: Other Derm: Eczema, Rosacea - Past Surgical History Past Surgical History: Yes General: Hiatal hernia repair - Present Medications Home Medications: Ambulatory Orders Medication Instructions Recorded Confirmed Albuterol Sulf [Ventolin Hfa 1 - 2 puffs INH Q4HR PRN #1 ea 08/20/23 09/20/23 Inhaler] Atorvastatin Calcium 40 mg PO QPM 09/02/23 09/20/23 Fluticasone Propion/Salmeterol 1 puffs INH BID 09/02/23 09/20/23 [Fluticasone-Salmeterol 250-50] Naproxen 500 mg PO DAILY PRN 09/02/23 09/20/23 ARIPiprazole [Abilify] 10 mg PO DAILY tab 09/08/23 09/20/23 Acetaminophen 1,000 mg/100 ml 1,000 mg IV Q8HR PRN each 09/08/23 09/20/23 [Acetaminophen] Budesonide [Pulmicort] 0.5 mg INH RTBID ml 09/08/23 09/20/23 Calcium Carb (Oyster Shell) 500 mg PO DAILY tab 09/08/23 09/20/23 [[place]-500] Calcium Carbonate [Tums (Calcium 500 mg PO TID PRN tab 09/08/23 09/20/23 Carbonate 500mg)] Enoxaparin [Lovenox] 40 mg SUBQ DAILY ml 09/08/23 09/20/23 Gabapentin [Neurontin] 300 mg PO TID cap 09/08/23 09/20/23 LORazepam [Ativan] 0.5 mg PO Q6H PRN tab 09/08/23 09/20/23 Losartan [Cozaar] 50 mg PO DAILY tab 09/08/23 09/20/23 Magnesium Oxide [Mag Ox] 400 mg PO TIDWM tab 09/08/23 09/20/23 Ondansetron Odt [Zofran Odt] 4 mg TL Q6HR PRN tab 09/08/23 09/20/23 QUEtiapine [SEROquel] 50 mg PO BID tab 09/08/23 09/20/23 Sertraline [Zoloft] 100 mg PO DAILY tab 09/08/23 09/20/23 Thiamine [Vitamin B-1] 100 mg PO DAILY tab 09/08/23 09/20/23 hydrOXYzine PAMOATE [Vistaril] 25 mg PO Q6H PRN cap 09/08/23 09/20/23 methocarbamoL [Robaxin] 500 mg PO Q6HR PRN tab 09/08/23 09/20/23 oxyCODONE [Roxicodone] 5 mg PO Q4HR PRN tab 09/08/23 09/20/23 Meloxicam [Mobic] 7.5 mg PO BID 10 Days #20 tablet 09/20/23 Mupirocin 2% Oint [Bactroban 2% 1 applic TOP TID #15 gm 09/20/23 Oint] cephALEXin [Keflex] 500 mg PO QID #28 cap 09/20/23 hydroCHLOROthiazide [Hydrodiuril] 25 mg PO DAILY #15 tablet 09/20/23 - Allergies Allergies/Adverse Reactions: Allergies Allergy/AdvReac Type Severity Reaction Status Date / Time No Known Drug Allergies Allergy Verified 09/20/23 07:31 - Social History Does the pt smoke?: No Smoking Status: Never smoker Does the pt drink ETOH?: Yes Does the pt have substance abuse?: Yes - Immunizations Immunizations are current?: No Immunizations: TDAP >10years/unknown - POLST Patient has POLST: No POLST Status: Full Code PD ED PE NORMAL - Vitals Vital signs reviewed: Yes - General General: Alert and oriented X 3, No acute distress (able to talk in complete (long) sentences.), Well developed/nourished - HEENT HEENT: Pharynx benign - Neck Neck: Supple, no meningeal sign, No adenopathy - Cardiac Cardiac: RRR, No murmur - Respiratory Respiratory: No: Clear bilaterally (some exp wheezing. NO coarse sounds. ) - Abdomen Abdomen: Soft, Non tender - Back Back: No CVA TTP - Derm Derm: Normal color, Warm and dry - Extremities Extremities: No calf tenderness / cord, Other (1+ edema right leg, 2+ left lower leg with some tenderness upper lateral calf/poplititeal area. No rash nor sores. ) - Neuro Neuro: Alert and oriented X 3, No motor deficit, No sensory deficit Eye Opening: Spontaneous Motor: Obeys Commands Verbal: Oriented GCS Score: 15 Results - Vitals Vitals: Oxygen O2 Source Room air - Labs Labs: Laboratory Tests 09/20/23 09/20/23 07:56 07:56 WBC 6.6 RBC 3.45 L Hgb 12.3 L Hct 37.5 L MCV 108.7 H MCH 35.7 H MCHC 32.8 RDW 13.5 Plt Count 273 MPV 9.0 Neut # (Auto) 5.0 Lymph # (Auto) 1.1 L [place] # (Auto) 0.4 Eos # (Auto) 0.1 Baso # (Auto) 0.0 Absolute Nucleated RBC 0.00 Nucleated RBC % 0.0 Sodium 137 Potassium 3.7 Chloride 102 Carbon Dioxide 29 Anion Gap 6.0 BUN 3 L Creatinine 0.5 L Estimated GFR (MDRD) 170 Glucose 114 H Calcium 8.4 L Magnesium 1.6 L Total Bilirubin 0.2 AST 17 ALT 10 Alkaline Phosphatase 107 Total Creatine Kinase 89 Total Protein 5.3 L Albumin 3.1 L Globulin 2.2 Albumin/Globulin Ratio 1.4 Lipase 16 - Rads (name of study) chest xray Relevant Findings:: Prelim report reviewed, EMP independent interpretation of test (similar right small pleural effusion. ) duplex left leg. Relevant Findings:: Prelim report reviewed, EMP independent interpretation of test, Other (discussed with US tech. No DVT. ) PD Medical Decision Making - ED course Complexity details: reviewed results (CXR with similar right effusion, not increased in size. ), re-evaluated patient (pt with redness as well as sthe edema of the leg and had been treated for celluitits recent past with good improvement. I would also Rx mild diuretic for edema and use wraps/compressive socks. ), considered differential (has had dyspnea since rib fractures and effusion. Still with pain of ribs. Has been couple of months. CXR showing no enlargement of effusion. Has leg swelling, more in left without DVT. Concerned due to injuries and recent hospitalization. Consider lung cause of dyspnea, as not apparent CHF. ), d/w patient ED course: here for dyspnea with some wheezing notd. No recent URI symtptoms. Has subacute rib fractures. Could use NSAIDs. Consider diuretic for edema, though does not seem CHF. No obvious pneumonia. Has not hilton using MDI consitently. Departure - Departure Disposition: 01 Home, Self Care Clinical Impression: Dyspnea, Leg edema, Cellulitis Condition: Stable Record reviewed to determine appropriate education?: Yes Prescriptions: Mupirocin 2% Oint [Bactroban 2% Oint] 1 applic TOP TID #15 gm hydroCHLOROthiazide [Hydrodiuril] 25 mg PO DAILY #15 tablet cephALEXin [Keflex] 500 mg PO QID #28 cap Meloxicam [Mobic] 7.5 mg PO BID 10 Days #20 tablet Comments: Your chest x-ray shows a similar fluid in the lower right pleural space. It does not look to be expanded or increased. I presume your trouble breathing relates more to prop some fluid generally in the lung or more likely some reactive airway disease/asthma. I would suggest using your albuterol inhaler 2 puffs 4 times daily regularly for the next week. For the swelling in the leg, there is no signs of blood clots by ultrasound. There is the redness and swelling. Consistent with some cellulitis. We can go with the cephalexin again and see if it clears it as it did before. For general swelling in the legs, we could also try a mild water pill/diuretic. To the more blistery sores on the leg, you could use mupirocin antibiotic ointment twice daily. Recheck if not improving well over the next few days. A sent your prescriptions to your preferred pharmacy mail-order. Forms: PCP List Discharge Date/Time: 09/20/23 10:51
[2023-09-20] MEDS: KETOROLAC 15 MG/ML VIAL IVP STA (08:12)
[2023-09-20] MEDS: cefTRIAXone 1 GM VIAL IVP STA (08:12)
[2023-09-20] MEDS: HYDROmorphone 1 MG/ML CARPUJECT IVP STA (08:12)
[2023-09-20 08:16] LABS: BASOPHILS % (AUTO) 0.5 %; EOSINOPHILS # (AUTO) 0.1 10^3/uL (0.0-0.7); EOSINOPHILS % (AUTO) 1.5 %; HCT - HEMATOCRIT 37.5 % (42.0-52.0); HGB - HEMOGLOBIN 12.3 g/dL (14.0-18.0); LYMPHOCYTES # (AUTO) 1.1 10^3/uL (1.5-3.5); LYMPHOCYTES % (AUTO) 15.8 %; MEAN CORPUSCULAR HEMOGLOBIN 35.7 pg (27.0-31.0); MEAN CORPUSCULAR HGB CONC 32.8 g/dL (32.0-36.0); MEAN CORPUSCULAR VOLUME 108.7 fL (80.0-94.0); MONOCYTES # (AUTO) 0.4 10^3/uL (0.0-1.0); MONOCYTES % (AUTO) 5.9 %; NEUTROPHILS % (AUTO) 75.5 %; PLT - PLATELET COUNT 273 10^3/uL (130-450); RED BLOOD COUNT 3.45 10^6/uL (4.70-6.10); RED CELL DISTRIBUTION WIDTH 13.5 % (12.0-15.0); WHITE BLOOD COUNT 6.6 x10^3/uL (4.8-10.8)
[2023-09-20 08:19] LABS: ALBUMIN 3.1 g/dL (3.2-5.5); ALBUMIN/GLOBULIN RATIO 1.4 (1.0-2.2); BILIRUBIN,TOTAL 0.2 mg/dL (0.2-1.0); CALCIUM 8.4 mg/dL (8.5-10.3); CREATININE 0.5 mg/dL (0.6-1.3); MAGNESIUM 1.6 mg/dL (1.7-2.3); POTASSIUM 3.7 mmol/L (3.5-4.5); TOTAL PROTEIN 5.3 g/dL (6.4-8.9)
--- NOTE | 2023-09-20 08:35 | XRAY Report ---
PROCEDURE: Chest 1V INDICATIONS: dyspnea TECHNIQUE: One view of the chest was acquired. COMPARISON: CT 08/31/2023, radiograph 09/08/2023 FINDINGS: Surgical changes and devices: None. Lungs and pleura: Similar small loculated right-sided pleural effusion and right mid to lower lung z one consolidation/atelectasis. Mediastinum: Mediastinal contours appear normal. Heart size is normal. Bones and chest wall: No suspicious bony lesions. Overlying soft tissues appear unremarkable. IMPRESSION: Similar small loculated right-sided pleural effusion and right mid to lower lung zone consolidation/a telectasis. Reviewed by: Earnest Shearer MD on 09/20/2023 8:34 AM PDT Approved by: Earnest Shearer MD on 09/20/2023 8:34 AM PDT Station ID: [id number]
--- NOTE | 2023-09-20 10:44 | Ultrasound Report ---
PROCEDURE: Duplex Ext Veins Left INDICATIONS: leg swelling, recent hospitalization TECHNIQUE: Real-time imaging, as well as color and pulse Doppler interrogation, were performed of the lower extr emity deep veins from the inguinal ligament to the popliteal fossa. Attempted visualization of the ca lf veins was performed. COMPARISON: None. FINDINGS: The deep veins are normally compressible, and free of intraluminal thrombus. Color and pu lse Doppler demonstrate normal phasic intraluminal flow. There is normal augmentation response to di stal compression maneuver. IMPRESSION: No deep venous thrombosis of the visualized lower extremity. Agree with preliminary interpretation provided to the ordering provider by the ultrasound technologis t. Reviewed by: Earnest Shearer MD on 09/20/2023 10:43 AM PDT Approved by: Earnest Shearer MD on 09/20/2023 10:43 AM PDT Station ID: [id number]
[2023-09-20 10:53] VITALS: BP 142/88; O2SAT 98
== END 2023-09-20 10:51 | disposition home or self-care (01) ==
LOC: EDUNIT# → ED 07:23
DX: R06.00 Dyspnea, unspecified (principal); L03.116 Cellulitis of left lower limb; J90 Pleural effusion, not elsewhere classified; S22.49XD Multiple fractures of ribs, unspecified side, subsequent encounter for fracture with routine healing
CPT/HCPCS: 36415; 71045; 80053; 82550; 83690; 83735; 85025; 93971; 96374; 99284; J1170

== ENCOUNTER 2023-09-22 07:07 | Outpatient (CLI) | payer MEDICAID | END 2023-09-22 07:08 | disposition EMS.NT | LOC: EMS 07:07 | DX: Z03.89 Encounter for observation for other suspected diseases and conditions ruled out (principal) ==

== ENCOUNTER 2023-09-22 17:57 | Outpatient (CLI) | payer MEDICAID | END 2023-09-22 23:59 | disposition critical access hospital (66) | LOC: EMS 17:57 | DX: M79.89 Other specified soft tissue disorders (principal) | CPT/HCPCS: A0425; A0429; A0999 ==

== ENCOUNTER 2023-09-22 18:30 | Emergency (ER) | payer MEDICAID ==
[2023-09-22] MEDS ORDERED: FUROSEMIDE 40 MG/4 ML VIAL IVP STA (18:38)
--- NOTE | 2023-09-22 18:41 | ED Physician Documentation ---
History of Present Illness - Stated complaint Stated Complaint: BLE EDEMA PAIN, WEEPING CHEST WOUND - History obtained from History obtained from: Patient, EMS - Additonal information Additional information: This is a 58-year-old gentleman who presents by ambulance. He has a history of chronic alcoholism, hypertension, bipolar disorder. He was frequenting the emergency department earlier this year for cellulitis versus venous stasis and then had a fall in July on the third where he broke several ribs. More recently he was admitted here on the fourth of this month and he had a retained hemothorax and subsequently had a chest tube placed and was sent to [facility]. He was released about a week and a half ago, and his chest tubes are out. He comes in today complaining of pain at the site of prior chest tube and increased lower extremity edema. He says that his breathing is okay. He denies fevers. He states that his last drink was "a strong josefina" yesterday, but S medics tell me that there was evidence of significant alcohol and smell of alcohol on the patient. PD PAST MEDICAL HISTORY - Past Medical History Cardiovascular: Hypertension Respiratory: Asthma, Other Neuro: None Endocrine/Autoimmune: None GI: GERD, Other : Incontinence HEENT: Chronic sinusitis Psych: Depression, Anxiety, Bipolar disorder, Post traumatic stress disorder, Claustrophobia Musculoskeletal: Other Derm: Eczema, Rosacea - Past Surgical History Past Surgical History: Yes General: Hiatal hernia repair - Present Medications Home Medications: Ambulatory Orders Medication Instructions Recorded Confirmed Albuterol Sulf [Ventolin Hfa 1 - 2 puffs INH Q4HR PRN #1 ea 08/20/23 09/20/23 Inhaler] Atorvastatin Calcium 40 mg PO QPM 09/02/23 09/20/23 Fluticasone Propion/Salmeterol 1 puffs INH BID 09/02/23 09/20/23 [Fluticasone-Salmeterol 250-50] Naproxen 500 mg PO DAILY PRN 09/02/23 09/20/23 ARIPiprazole [Abilify] 10 mg PO DAILY tab 09/08/23 09/20/23 Acetaminophen 1,000 mg/100 ml 1,000 mg IV Q8HR PRN each 09/08/23 09/20/23 [Acetaminophen] Budesonide [Pulmicort] 0.5 mg INH RTBID ml 09/08/23 09/20/23 Calcium Carb (Oyster Shell) 500 mg PO DAILY tab 09/08/23 09/20/23 [Oysco-500] Calcium Carbonate [Tums (Calcium 500 mg PO TID PRN tab 09/08/23 09/20/23 Carbonate 500mg)] Enoxaparin [Lovenox] 40 mg SUBQ DAILY ml 09/08/23 09/20/23 Gabapentin [Neurontin] 300 mg PO TID cap 09/08/23 09/20/23 LORazepam [Ativan] 0.5 mg PO Q6H PRN tab 09/08/23 09/20/23 Losartan [Cozaar] 50 mg PO DAILY tab 09/08/23 09/20/23 Magnesium Oxide [Mag Ox] 400 mg PO TIDWM tab 09/08/23 09/20/23 Ondansetron Odt [Zofran Odt] 4 mg TL Q6HR PRN tab 09/08/23 09/20/23 QUEtiapine [SEROquel] 50 mg PO BID tab 09/08/23 09/20/23 Sertraline [Zoloft] 100 mg PO DAILY tab 09/08/23 09/20/23 Thiamine [Vitamin B-1] 100 mg PO DAILY tab 09/08/23 09/20/23 hydrOXYzine PAMOATE [Vistaril] 25 mg PO Q6H PRN cap 09/08/23 09/20/23 methocarbamoL [Robaxin] 500 mg PO Q6HR PRN tab 09/08/23 09/20/23 oxyCODONE [Roxicodone] 5 mg PO Q4HR PRN tab 09/08/23 09/20/23 Meloxicam [Mobic] 7.5 mg PO BID 10 Days #20 tablet 09/20/23 Mupirocin 2% Oint [Bactroban 2% 1 applic TOP TID #15 gm 09/20/23 Oint] cephALEXin [Keflex] 500 mg PO QID #28 cap 09/20/23 hydroCHLOROthiazide [Hydrodiuril] 25 mg PO DAILY #15 tablet 09/20/23 - Allergies Allergies/Adverse Reactions: Allergies Allergy/AdvReac Type Severity Reaction Status Date / Time No Known Drug Allergies Allergy Verified 09/22/23 18:42 - Social History Does the pt smoke?: No Smoking Status: Never smoker Does the pt drink ETOH?: Yes Does the pt have substance abuse?: Yes - Immunizations Immunizations are current?: No Immunizations: TDAP >10years/unknown - POLST Patient has POLST: No POLST Status: Full Code PD ED PE NORMAL - Vitals Vital signs reviewed: Yes - General General: Alert and oriented X 3, No acute distress - Neck Neck: Supple, no meningeal sign, No bony TTP - Cardiac Cardiac: RRR, No murmur - Respiratory Respiratory: No respiratory distress, Clear bilaterally, Other (There are several healing scars/suture lines to the right axilla. He points to one as the site of pain which is clean dry and intact with a running suture in place but the suture is broken and removed during exam.) - Abdomen Abdomen: Non tender - Derm Derm: Normal color, Warm and dry - Extremities Extremities: Other (3+ pitting pedal edema bilaterally with venous stasis changes. They are symmetric.) - Neuro Neuro: Alert and oriented X 3, Normal speech Results - Vitals Vitals: Vital Signs - 24 hr 09/22/23 18:37 Temperature 36.2 C L Heart Rate 108 H Respiratory 22 Rate Blood Pressure 136/83 H O2 Saturation 94 Oxygen O2 Source Room air - EKG (time done) 1850 EKG releavant findings:: EKG personally interpreted by author of this note. Relevant findings are: Rate: Rate (enter#) (102) Rhythm: Sinus tachycardia (Computer reading a PVC which I do not see on the rhythm strip so question artifactual) Intervals: Prolonged WI QRS: Low voltage Ischemia: Normal ST segments - Labs Labs: Laboratory Tests 09/22/23 09/22/23 09/22/23 18:53 18:53 18:53 WBC 7.3 RBC 3.84 L Hgb 13.4 L Hct 42.1 MCV 109.6 H MCH 34.9 H MCHC 31.8 L RDW 13.8 Plt Count 275 MPV 9.1 Neut # (Auto) 5.3 Lymph # (Auto) 1.3 L [place] # (Auto) 0.4 Eos # (Auto) 0.2 Baso # (Auto) 0.0 Absolute Nucleated RBC 0.00 Nucleated RBC % 0.0 PT 11.3 INR 1.0 Sodium 141 Potassium 3.7 Chloride 105 Carbon Dioxide 29 Anion Gap 7.0 BUN 3 L Creatinine 0.5 L Estimated GFR (MDRD) 170 Glucose 98 Calcium 9.0 Magnesium 1.8 Total Bilirubin 0.3 AST 14 ALT 9 L Alkaline Phosphatase 107 Total Protein 6.2 L Albumin 3.4 Globulin 2.8 Albumin/Globulin Ratio 1.2 Ethyl Alcohol 212.8 PD Medical Decision Making - ED course ED course: 58-year-old gentleman presents with now chronic pleural effusion with some pedal edema. He was seen here the other day and has not yet started the medications Dr. Connelly prescribed which did include diuretic. Workup in the emergency department demonstrated a CBC with mild macrocytic anemia, normal INR Vicky CMP notable for low BUN likely from alcohol use corroborated by blood alcohol at 212. Even after confronted with this result he denies any alcohol use today, he was administered Tylenol and Lasix. His chest x-ray is unchanged and he has appropriate follow-up for review in a few days. Departure - Departure Disposition: 01 Home, Self Care Clinical Impression: Alcohol intoxication, Alcohol abuse, Recurrent right pleural effusion Condition: Stable Record reviewed to determine appropriate education?: Yes Instructions: ED Alcohol Abuse Comments: The fluid in your right lung is stable. Otherwise your labs and workup were negative with the exception of alcohol intoxication. Please stay with a sober person tonight and abstain from alcohol use. Start the prescriptions that Dr. Connelly gave you the other day. Follow-up at [facility] September 26 as scheduled. Return for new or worsening symptoms.
[2023-09-22 19:04] LABS: BASOPHILS % (AUTO) 0.4 %; EOSINOPHILS # (AUTO) 0.2 10^3/uL (0.0-0.7); EOSINOPHILS % (AUTO) 2.3 %; HCT - HEMATOCRIT 42.1 % (42.0-52.0); HGB - HEMOGLOBIN 13.4 g/dL (14.0-18.0); LYMPHOCYTES # (AUTO) 1.3 10^3/uL (1.5-3.5); LYMPHOCYTES % (AUTO) 17.7 %; MEAN CORPUSCULAR HEMOGLOBIN 34.9 pg (27.0-31.0); MEAN CORPUSCULAR HGB CONC 31.8 g/dL (32.0-36.0); MEAN CORPUSCULAR VOLUME 109.6 fL (80.0-94.0); MEAN PLATELET VOLUME 9.1 fL (7.4-11.4); MONOCYTES # (AUTO) 0.4 10^3/uL (0.0-1.0); MONOCYTES % (AUTO) 5.9 %; NEUTROPHILS # (AUTO) 5.3 10^3/uL (1.5-6.6); PLT - PLATELET COUNT 275 10^3/uL (130-450); RED BLOOD COUNT 3.84 10^6/uL (4.70-6.10); RED CELL DISTRIBUTION WIDTH 13.8 % (12.0-15.0); WHITE BLOOD COUNT 7.3 x10^3/uL (4.8-10.8)
[2023-09-22 19:12] LABS: MAGNESIUM 1.8 mg/dL (1.7-2.3)
[2023-09-22 19:16] LABS: PT - PROTHROMBIN TIME 11.3 secs (9.9-12.6)
[2023-09-22 19:18] LABS: ETOH - ETHANOL 212.8 mg/dL
[2023-09-22 19:19] LABS: ALBUMIN 3.4 g/dL (3.2-5.5); ALBUMIN/GLOBULIN RATIO 1.2 (1.0-2.2); BILIRUBIN,TOTAL 0.3 mg/dL (0.2-1.0); CREATININE 0.5 mg/dL (0.6-1.3); POTASSIUM 3.7 mmol/L (3.5-4.5); TOTAL PROTEIN 6.2 g/dL (6.4-8.9)
--- NOTE | 2023-09-22 19:53 | XRAY Report ---
PROCEDURE: Chest 2V INDICATIONS: F/U pleural effusion, chest tube out x 1.5 week TECHNIQUE: 2 views of the chest were acquired. COMPARISON: 09/20/2023. FINDINGS: Surgical changes and devices: None. Lungs and pleura: Similar small right loculated pleural effusion with adjacent atelectasis versus co nsolidation. Left lung appears clear. Mediastinum: Mediastinal contours appear normal. Heart size is normal. Bones and chest wall: No suspicious bony lesions. Overlying soft tissues appear unremarkable. IMPRESSION: Similar small right loculated pleural effusion with adjacent atelectasis versus consolidation. Reviewed by: Benja Johnson MD on 09/22/2023 7:52 PM PDT Approved by: Benja Johnson MD on 09/22/2023 7:52 PM PDT Station ID: [id number]
[2023-09-22] MEDS: ACETAMINOPHEN 500 MG TABLET PO STA (20:00)
[2023-09-22] MEDS: FUROSEMIDE 40 MG/4 ML VIAL IVP STA (20:00)
[2023-09-22 20:48] VITALS: BP 134/68; O2SAT 99
== END 2023-09-22 20:30 | disposition home or self-care (01) ==
LOC: EDUNIT# → ED 18:30
DX: J90 Pleural effusion, not elsewhere classified (principal); R60.0 Localized edema; F10.129 Alcohol abuse with intoxication, unspecified; Y90.7 Blood alcohol level of 200-239 mg/100 ml
CPT/HCPCS: 36415; 71046; 80053; 82077; 83735; 85025; 85610; 93005; 96374; 99284; A9270

== ENCOUNTER 2023-10-08 07:30 | Outpatient (CLI) | payer MEDICAID | END 2023-10-08 23:59 | disposition EMS.NT | LOC: EMS 07:30 | DX: M79.89 Other specified soft tissue disorders (principal) ==

== ENCOUNTER 2023-10-08 15:47 | Outpatient (CLI) | payer MEDICAID | END 2023-10-08 23:59 | disposition critical access hospital (66) | LOC: EMS 15:47 | DX: L03.115 Cellulitis of right lower limb (principal); L03.116 Cellulitis of left lower limb | CPT/HCPCS: A0425; A0429; A0999 ==

== ENCOUNTER 2023-10-08 16:22 | Emergency (ER) | payer MEDICAID ==
[2023-10-08 16:47] VITALS: BP 133/88; O2SAT 99
== END 2023-10-08 17:17 | disposition left against medical advice (07) ==
LOC: EDUNIT# → ED 16:22
DX: Z53.21 Procedure and treatment not carried out due to patient leaving prior to being seen by health care provider (principal)

== ENCOUNTER 2023-10-27 06:52 | Outpatient (CLI) | payer MEDICAID | END 2023-10-27 23:59 | disposition critical access hospital (66) | LOC: EMS 06:52 | DX: L98.9 Disorder of the skin and subcutaneous tissue, unspecified (principal) | CPT/HCPCS: A0425; A0429; A0999 ==

== ENCOUNTER 2023-10-27 07:23 | Emergency (ER) | payer MEDICAID ==
--- NOTE | 2023-10-27 07:30 | ED Physician Documentation ---
PD HPI SKIN - History obtained from History obtained from: Patient, EMS - History of Present Illness Timing - duration: Days Timing - details: Gradual onset, Still present (has had sore on left calf area for couple of months, and was seen a month ago for it with Rx of Keflex, mupriocin. He states improved moderately but not healed over. Has increased redness, pain the past 2-3 days with blistering type lesions now on anterior lower legs and up to thighs.) Location: RLE, LLE (initially left, now also right lower leg to thigh area.) PD PAST MEDICAL HISTORY - Present Medications Home Medications: Ambulatory Orders Medication Instructions Recorded Confirmed Albuterol Sulf [Ventolin Hfa 1 - 2 puffs INH Q4HR PRN #1 ea 08/20/23 10/27/23 Inhaler] Atorvastatin Calcium 40 mg PO QPM 09/02/23 10/27/23 Fluticasone Propion/Salmeterol 1 puffs INH BID 09/02/23 10/27/23 [Fluticasone-Salmeterol 250-50] Naproxen 500 mg PO DAILY PRN 09/02/23 10/27/23 ARIPiprazole [Abilify] 10 mg PO DAILY tab 09/08/23 10/27/23 Acetaminophen 1,000 mg/100 ml 1,000 mg IV Q8HR PRN each 09/08/23 10/27/23 [Acetaminophen] Budesonide [Pulmicort] 0.5 mg INH RTBID ml 09/08/23 10/27/23 Calcium Carb (Oyster Shell) 500 mg PO DAILY tab 09/08/23 10/27/23 [[place]-500] Calcium Carbonate [Tums (Calcium 500 mg PO TID PRN tab 09/08/23 10/27/23 Carbonate 500mg)] Gabapentin [Neurontin] 300 mg PO TID cap 09/08/23 10/27/23 LORazepam [Ativan] 0.5 mg PO Q6H PRN tab 09/08/23 10/27/23 Losartan [Cozaar] 50 mg PO DAILY tab 09/08/23 10/27/23 Magnesium Oxide [Mag Ox] 400 mg PO TIDWM tab 09/08/23 10/27/23 Ondansetron Odt [Zofran Odt] 4 mg TL Q6HR PRN tab 09/08/23 10/27/23 QUEtiapine [SEROquel] 50 mg PO BID tab 09/08/23 10/27/23 Sertraline [Zoloft] 100 mg PO DAILY tab 09/08/23 10/27/23 Thiamine [Vitamin B-1] 100 mg PO DAILY tab 09/08/23 10/27/23 hydrOXYzine PAMOATE [Vistaril] 25 mg PO Q6H PRN cap 09/08/23 10/27/23 methocarbamoL [Robaxin] 500 mg PO Q6HR PRN tab 09/08/23 10/27/23 oxyCODONE [Roxicodone] 5 mg PO Q4HR PRN tab 09/08/23 10/27/23 Meloxicam [Mobic] 7.5 mg PO BID 10 Days #20 tablet 09/20/23 10/27/23 Mupirocin 2% Oint [Bactroban 2% 1 applic TOP TID #15 gm 09/20/23 10/27/23 Oint] cephALEXin [Keflex] 500 mg PO QID #28 cap 09/20/23 10/27/23 hydroCHLOROthiazide [Hydrodiuril] 25 mg PO DAILY #15 tablet 09/20/23 10/27/23 Chlorhexidine Gluconate [Hibiclens] 15 ml TP DAILY #236 ml 10/27/23 HYDROcod/ACETAM 5/325 [[place] 5/325] 1 ea PO Q6H PRN #14 tablet 10/27/23 Mupirocin 2% Oint [Bactroban 2% 1 applic TOP TID #15 gm 10/27/23 Oint] cephALEXin [Keflex] 500 mg PO TID #20 cap 10/27/23 clindamycin HCL [Clindamycin HCl] 300 mg PO TID 7 Days #20 cap 10/27/23 hydroCHLOROthiazide [Hydrodiuril] 25 mg PO DAILY #30 tablet 10/27/23 - Allergies Allergies/Adverse Reactions: Allergies Allergy/AdvReac Type Severity Reaction Status Date / Time No Known Drug Allergies Allergy Verified 10/27/23 07:26 PD ED PE NORMAL - Vitals Vital signs reviewed: Yes - General General: Alert and oriented X 3, No acute distress, Well developed/nourished (but dishelved/unkempt) - Cardiac Cardiac: RRR, No murmur - Respiratory Respiratory: No respiratory distress, Clear bilaterally - Abdomen Abdomen: Soft, Non tender - Derm Derm: Normal color, Warm and dry - Extremities Extremities: Other (1-2+ edema in both lower legs from knees down and some swell ing of medial lower thigh. Left calf with ovoid area of partial thickness ulceration without drainage. Has firm blistering lesions scattered lower legs both sides. I did corona some and got cultures. Not a lot of fluid in them and not pus.) Results - Vitals Vitals: Vital Signs - 24 hr 10/27/23 10/27/23 07:34 12:33 Temperature 36.7 C Heart Rate 98 82 Respiratory 14 18 Rate Blood Pressure 111/74 148/86 H O2 Saturation 97 100 Oxygen O2 Source Room air - Labs Labs: Microbiology 10/27/23 07:35 Wound Culture - Preliminary Leg - Left Laboratory Tests 10/27/23 10/27/23 10/27/23 08:05 08:05 08:05 WBC 6.0 RBC 3.70 L Hgb 12.6 L Hct 39.1 L MCV 105.7 H MCH 34.1 H MCHC 32.2 RDW 15.1 H Plt Count 206 MPV 9.5 Neut # (Auto) 4.4 Lymph # (Auto) 0.8 L [place] # (Auto) 0.7 Eos # (Auto) 0.0 Baso # (Auto) 0.0 Absolute Nucleated RBC 0.00 Nucleated RBC % 0.0 PT INR Sodium 132 L Potassium 3.6 Chloride 96 L Carbon Dioxide 25 Anion Gap 11.0 BUN 8 Creatinine 0.6 Estimated GFR (MDRD) 137 Glucose 126 H Lactic Acid 1.9 Calcium 8.6 Magnesium 2.0 Total Bilirubin 0.3 AST 15 ALT 8 L Alkaline Phosphatase 93 Total Creatine Kinase 29 L Total Protein 6.4 Albumin 3.3 Globulin 3.1 Albumin/Globulin Ratio 1.1 Lipase 69 Ethyl Alcohol 212.6 10/27/23 08:05 WBC RBC Hgb Hct MCV MCH MCHC RDW Plt Count MPV Neut # (Auto) Lymph # (Auto) [place] # (Auto) Eos # (Auto) Baso # (Auto) Absolute Nucleated RBC Nucleated RBC % PT 12.4 INR 1.1 Sodium Potassium Chloride Carbon Dioxide Anion Gap BUN Creatinine Estimated GFR (MDRD) Glucose Lactic Acid Calcium Magnesium Total Bilirubin AST ALT Alkaline Phosphatase Total Creatine Kinase Total Protein Albumin Globulin Albumin/Globulin Ratio Lipase Ethyl Alcohol - Rads (name of study) duplex US of both legs. Relevant Findings:: Other (from US Tech: no DVT. ) PD Medical Decision Making - ED course Complexity details: reviewed results (US without DVT. Initial gram stain showing gram positive cocci, but also gram neg bacilli. Consider double coverage abx pending cultures. WBC normal Lactate normal. ), considered differential, d/w patient, d/w medical sales consultant (hospitalist, who felt pt did not have criteria for admission. Try outpt and see if does not improve. ) Departure - Departure Disposition: Home, Self Care Clinical Impression: Cellulitis, leg Condition: Stable Record reviewed to determine appropriate education?: Yes Instructions: ED Infec Skin Cellulitis Follow-Up: Nika Campbell ARNP [Primary Care Provider] - Prescriptions: Mupirocin 2% Oint [Bactroban 2% Oint] 1 applic TOP TID #15 gm clindamycin HCL [Clindamycin HCl] 300 mg PO TID 7 Days #20 cap Chlorhexidine Gluconate [Hibiclens] 15 ml TP DAILY #236 ml hydroCHLOROthiazide [Hydrodiuril] 25 mg PO DAILY #30 tablet cephALEXin [Keflex] 500 mg PO TID #20 cap HYDROcod/ACETAM 5/325 [[place] 5/325] 1 ea PO Q6H PRN #14 tablet PRN Reason: Pain Comments: Your legs do look like a skin infection called cellulitis. With the blister formation to it I was able to obtain some fluid from there and we are doing a culture. Preliminary would suggest staph type infection but the be may be other bacteria as well. With that in mind, I would go with 2 antibiotics to begin with both cephalexin and clindamycin as well as a topical antibiotic ointment to the main ulcerative infection on the left leg. This topicals called mupirocin. To decrease the amount of germs generally on the surface of your skin in hopes of reducing further areas of involvement, I would also use an antiseptic wash called chlorhexidine daily with your showering. Tylenol every 4-6 hours if needed for pains. I prescribed hydrocodone to use if needed for worse pains. At this point there is no sign of systemic involvement of the infection meaning no signs of impending sepsis etc. No signs of deep layer involvement such as the muscle layer based on blood test. As such no indication right now for hospitalization as oral medication is likely to be effective. Recheck if not improved well over the next few days. I sent your prescriptions to your preferred pharmacy and hopefully they will mail it to you promptly by tomorrow. Forms: PCP List Discharge Date/Time: 10/27/23 12:13
[2023-10-27 08:11] LABS: BASOPHILS % (AUTO) 0.5 %; EOSINOPHILS % (AUTO) 0.5 %; HCT - HEMATOCRIT 39.1 % (42.0-52.0); HGB - HEMOGLOBIN 12.6 g/dL (14.0-18.0); LYMPHOCYTES # (AUTO) 0.8 10^3/uL (1.5-3.5); MEAN CORPUSCULAR HEMOGLOBIN 34.1 pg (27.0-31.0); MEAN CORPUSCULAR HGB CONC 32.2 g/dL (32.0-36.0); MEAN CORPUSCULAR VOLUME 105.7 fL (80.0-94.0); MEAN PLATELET VOLUME 9.5 fL (7.4-11.4); MONOCYTES # (AUTO) 0.7 10^3/uL (0.0-1.0); MONOCYTES % (AUTO) 12.3 %; NEUTROPHILS # (AUTO) 4.4 10^3/uL (1.5-6.6); NEUTROPHILS % (AUTO) 73.4 %; PLT - PLATELET COUNT 206 10^3/uL (130-450); RED CELL DISTRIBUTION WIDTH 15.1 % (12.0-15.0)
[2023-10-27 08:19] LABS: INR 1.1 (0.8-1.2); PT - PROTHROMBIN TIME 12.4 secs (9.9-12.6)
[2023-10-27 08:25] LABS: ALBUMIN 3.3 g/dL (3.2-5.5); ALBUMIN/GLOBULIN RATIO 1.1 (1.0-2.2); BILIRUBIN,TOTAL 0.3 mg/dL (0.2-1.0); CALCIUM 8.6 mg/dL (8.5-10.3); CREATININE 0.6 mg/dL (0.6-1.3); ETOH - ETHANOL 212.6 mg/dL; POTASSIUM 3.6 mmol/L (3.5-4.5); TOTAL PROTEIN 6.4 g/dL (6.4-8.9)
[2023-10-27] MEDS: KETOROLAC 15 MG/ML VIAL IVP STA (08:34)
[2023-10-27] MEDS: SODIUM CHLORIDE 0.9% 1,000 ML IV STA (08:35)
[2023-10-27] MEDS: HYDROmorphone 1 MG/ML CARPUJECT IVP STA (08:35)
--- NOTE | 2023-10-27 09:41 | XRAY Report ---
PROCEDURE: Chest 1V INDICATIONS: dyspnea TECHNIQUE: One view of the chest was acquired. COMPARISON: 09/22/2023 FINDINGS: Surgical changes and devices: None. Lungs and pleura: Small right pleural effusion is decreased compared to prior. There is adjacent ate lectasis versus consolidation. Prominent interstitial markings within the right lung. Mediastinum: Mediastinal contours appear normal. Heart size is normal. Bones and chest wall: No suspicious bony lesions. Overlying soft tissues appear unremarkable. IMPRESSION: Decreased size of small right pleural effusion with adjacent atelectasis versus consolidation. New in creased interstitial markings within the right lung, may represent edema versus infection. Reviewed by: Benja Johnson MD on 10/27/2023 9:39 AM PDT Approved by: Benja Johnson MD on 10/27/2023 9:39 AM PDT Station ID: [id number]
[2023-10-27] MEDS: CLINDAMYCIN 600 MG/50 ML 50 ML IV ONE (09:47)
--- NOTE | 2023-10-27 10:12 | Ultrasound Report ---
PROCEDURE: Duplex Ext Veins Bilateral INDICATIONS: Keenan Connelly MD TECHNIQUE: Real-time imaging, as well as color and pulse Doppler interrogation, were performed of the deep veins of both legs from the inguinal ligament to the popliteal fossa. Attempted visualization of the calf veins was performed. COMPARISON: 09/20/2023 FINDINGS: Calf veins are not seen. The deep veins are otherwise normally compressible, and free of i ntraluminal thrombus. Color and pulse Doppler demonstrate normal phasic intravascular flow. There i s normal augmentation response to distal compression maneuver. IMPRESSION: Limited examination demonstrating no deep venous thrombosis of the visualized lower extremities. Reviewed by: Dylan Bear MD on 10/27/2023 10:10 AM PDT Approved by: Dylan Bear MD on 10/27/2023 10:10 AM PDT Station ID: [id number]
[2023-10-27 12:38] VITALS: BP 148/86; O2SAT 100
--- NOTE | 2023-10-29 12:49 | ED Physician Documentation ---
ED Addendum - Addendum Addendum: 10/29/23 12:49 Wound culture is preliminary at this juncture but reviewed growth to date with beta-hemolytic strep and gram-negative growth to be speciated. At this point Keflex should be appropriate but we are waiting for that second isolate sensitivities.
== END 2023-10-27 12:13 | disposition home or self-care (01) ==
LOC: ED 07:23 → MERGE 07:23 → ED 12:13
DX: L03.116 Cellulitis of left lower limb (principal); L03.115 Cellulitis of right lower limb; B96.89 Other specified bacterial agents as the cause of diseases classified elsewhere
CPT/HCPCS: 36415; 71045; 80053; 82077; 82550; 83605; 83690; 83735; 85025; 85610; 87070; 87205; 93970; 96365; 96375; 99284; J1170; 87077

== ENCOUNTER 2023-11-03 23:04 | Outpatient (CLI) | payer MEDICAID | END 2023-11-03 23:05 | disposition critical access hospital (66) | LOC: EMS 23:04 | DX: R53.1 Weakness (principal); M79.89 Other specified soft tissue disorders; M79.662 Pain in left lower leg; M79.661 Pain in right lower leg; M79.673 Pain in unspecified foot; Z91.81 History of falling | CPT/HCPCS: A0425; A0429; A0999 ==

== ENCOUNTER 2023-11-03 23:35 | Emergency (ER) | payer MEDICAID ==
[2023-11-03 23:46] VITALS: BP 123/71; O2SAT 92
--- NOTE | 2023-11-03 23:54 | ED Physician Documentation ---
History of Present Illness - Stated complaint Stated Complaint: CELLULITIS - Chief complaint Chief Complaint: General - History obtained from History obtained from: Patient - Additonal information Additional information: 58yM with pmh cellulitis recently treated here in the ED p/w persistent swelling and erythema to BL legs X few days. denies fever. patient is intoxicated with marijuana and alcohol therefore difficult historian. History limited by this. PD PAST MEDICAL HISTORY - Past Medical History Cardiovascular: Hypertension Respiratory: Other, Asthma Neuro: None Endocrine/Autoimmune: None GI: GERD, Other : Incontinence HEENT: Chronic sinusitis Psych: Bipolar disorder, Depression, Anxiety, Post traumatic stress disorder, Claustrophobia Musculoskeletal: Other Derm: Eczema, Rosacea - Past Surgical History Past Surgical History: Yes General: Hiatal hernia repair - Present Medications Home Medications: Ambulatory Orders Medication Instructions Recorded Confirmed Albuterol Sulf [Ventolin Hfa 1 - 2 puffs INH Q4HR PRN #1 ea 08/20/23 10/27/23 Inhaler] Atorvastatin Calcium 40 mg PO QPM 09/02/23 10/27/23 Fluticasone Propion/Salmeterol 1 puffs INH BID 09/02/23 10/27/23 [Fluticasone-Salmeterol 250-50] Naproxen 500 mg PO DAILY PRN 09/02/23 10/27/23 ARIPiprazole [Abilify] 10 mg PO DAILY tab 09/08/23 10/27/23 Acetaminophen 1,000 mg/100 ml 1,000 mg IV Q8HR PRN each 09/08/23 10/27/23 [Acetaminophen] Budesonide [Pulmicort] 0.5 mg INH RTBID ml 09/08/23 10/27/23 Calcium Carb (Oyster Shell) 500 mg PO DAILY tab 09/08/23 10/27/23 [[place]-500] Calcium Carbonate [Tums (Calcium 500 mg PO TID PRN tab 09/08/23 10/27/23 Carbonate 500mg)] Gabapentin [Neurontin] 300 mg PO TID cap 09/08/23 10/27/23 LORazepam [Ativan] 0.5 mg PO Q6H PRN tab 09/08/23 10/27/23 Losartan [Cozaar] 50 mg PO DAILY tab 09/08/23 10/27/23 Magnesium Oxide [Mag Ox] 400 mg PO TIDWM tab 09/08/23 10/27/23 Ondansetron Odt [Zofran Odt] 4 mg TL Q6HR PRN tab 09/08/23 10/27/23 QUEtiapine [SEROquel] 50 mg PO BID tab 09/08/23 10/27/23 Sertraline [Zoloft] 100 mg PO DAILY tab 09/08/23 10/27/23 Thiamine [Vitamin B-1] 100 mg PO DAILY tab 09/08/23 10/27/23 hydrOXYzine PAMOATE [Vistaril] 25 mg PO Q6H PRN cap 09/08/23 10/27/23 methocarbamoL [Robaxin] 500 mg PO Q6HR PRN tab 09/08/23 10/27/23 oxyCODONE [Roxicodone] 5 mg PO Q4HR PRN tab 09/08/23 10/27/23 Meloxicam [Mobic] 7.5 mg PO BID 10 Days #20 tablet 09/20/23 10/27/23 Mupirocin 2% Oint [Bactroban 2% 1 applic TOP TID #15 gm 09/20/23 10/27/23 Oint] cephALEXin [Keflex] 500 mg PO QID #28 cap 09/20/23 10/27/23 hydroCHLOROthiazide [Hydrodiuril] 25 mg PO DAILY #15 tablet 09/20/23 10/27/23 Chlorhexidine Gluconate [Hibiclens] 15 ml TP DAILY #236 ml 10/27/23 HYDROcod/ACETAM 5/325 [[place] 5/325] 1 ea PO Q6H PRN #14 tablet 10/27/23 Mupirocin 2% Oint [Bactroban 2% 1 applic TOP TID #15 gm 10/27/23 Oint] cephALEXin [Keflex] 500 mg PO TID #20 cap 10/27/23 clindamycin HCL [Clindamycin HCl] 300 mg PO TID 7 Days #20 cap 10/27/23 hydroCHLOROthiazide [Hydrodiuril] 25 mg PO DAILY #30 tablet 10/27/23 Doxycycline Hyclate 100 mg PO BID 10 Days #20 tab 11/03/23 Mupirocin 2% Oint [Bactroban 2% 1 applic TOP TID 14 Days #50 gm 11/03/23 Oint] - Allergies Allergies/Adverse Reactions: Allergies Allergy/AdvReac Type Severity Reaction Status Date / Time No Known Drug Allergies Allergy Verified 11/03/23 23:38 - Social History Does the pt smoke?: Yes Smoking Status: Current every day smoker Does the pt drink ETOH?: Yes Does the pt have substance abuse?: Yes - Immunizations Immunizations are current?: No Immunizations: TDAP >10years/unknown - POLST Patient has POLST: No POLST Status: Full Code PD ED PE NORMAL - Vitals Vital signs reviewed: Yes - General General: Alert and oriented X 3, No acute distress, Well developed/nourished - HEENT HEENT: Atraumatic, PERRL, EOMI - Derm Derm: Normal color, Warm and dry, Other (BL LE mild erythema. 1+ BL pitting edema. 2+ BL dp pulses. ulcerated lesion to L posterior leg without gross purulence.) Results - Vitals Vitals: Vital Signs - 24 hr 11/03/23 23:39 Temperature 36.1 C L Heart Rate 100 Respiratory 19 Rate Blood Pressure 123/71 O2 Saturation 92 Oxygen O2 Source Room air PD Medical Decision Making - ED course ED course: 58yF p/w mild persistent cellulitis s/p full course of keflex and clindamycin. He is unclear about whether he's been fully compliant with regimen. plan to provide additional course of antibiotics and have him f/u with pcp for referral to wound clinic. return precautions given. Departure - Departure Disposition: 01 Home, Self Care Clinical Impression: Cellulitis Condition: Stable Instructions: Cellulitis Dc Follow-Up: Nika Campbell ARNP [Credentialed Staff Provider] - Prescriptions: Mupirocin 2% Oint [Bactroban 2% Oint] 1 applic TOP TID 14 Days #50 gm Doxycycline Hyclate 100 mg PO BID 10 Days #20 tab Comments: You were seen in the emergency department for mild persistent cellulitis (skin infection). Antibiotic ointment and oral antibiotic prescription was printed for you. Please follow-up with your primary care provider and return to the emergency department if you have any new or worsening symptoms or other concerns.
== END 2023-11-04 00:03 | disposition home or self-care (01) ==
LOC: EDUNIT# → ED 23:35
DX: L03.116 Cellulitis of left lower limb (principal); L03.115 Cellulitis of right lower limb; I10 Essential (primary) hypertension; J45.909 Unspecified asthma, uncomplicated; F12.929 Cannabis use, unspecified with intoxication, unspecified; F10.929 Alcohol use, unspecified with intoxication, unspecified; Z79.899 Other long term (current) drug therapy; F17.200 Nicotine dependence, unspecified, uncomplicated
CPT/HCPCS: 99283

== ENCOUNTER 2023-12-11 01:16 | Outpatient (CLI) | payer MEDICAID | END 2023-12-11 23:59 | disposition critical access hospital (66) | LOC: EMS 01:16 | DX: M79.662 Pain in left lower leg (principal); M79.661 Pain in right lower leg; Z59.19 Other inadequate housing | CPT/HCPCS: A0425; A0429; A0999 ==

== ENCOUNTER 2023-12-11 01:47 | Emergency (ER) | payer MEDICAID ==
[2023-12-11 01:59] VITALS: BP 131/70; O2SAT 95
--- NOTE | 2023-12-11 02:07 | ED Physician Documentation ---
History of Present Illness - Stated complaint Stated Complaint: BILAT LEG PAIN - Chief complaint Chief Complaint: Ext Problem - History obtained from History obtained from: Patient - Additonal information Additional information: 58yM with pmh PVD and chronic BL LE swelling with ulcer on LLE p/w BL LE pain tonight keeping him from sleep. He has been going to wound clinic and had negative wound culture this week. denies fever. 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 he states he has no pain meds at home. PD PAST MEDICAL HISTORY - Past Medical History Past Medical History: Yes Cardiovascular: Hypertension Respiratory: Other, Asthma Neuro: None Endocrine/Autoimmune: None GI: GERD, Other : Incontinence HEENT: Chronic sinusitis Psych: Bipolar disorder, Depression, Anxiety, Post traumatic stress disorder, Claustrophobia Musculoskeletal: Other Derm: Eczema, Rosacea - Past Surgical History Past Surgical History: Yes General: Hiatal hernia repair - Present Medications Home Medications: Ambulatory Orders Medication Instructions Recorded Confirmed Albuterol Sulf [Ventolin Hfa 1 - 2 puffs INH Q4HR PRN #1 ea 08/20/23 10/27/23 Inhaler] Atorvastatin Calcium 40 mg PO QPM 09/02/23 10/27/23 Fluticasone Propion/Salmeterol 1 puffs INH BID 09/02/23 10/27/23 [Fluticasone-Salmeterol 250-50] Naproxen 500 mg PO DAILY PRN 09/02/23 10/27/23 ARIPiprazole [Abilify] 10 mg PO DAILY tab 09/08/23 10/27/23 Budesonide [Pulmicort] 0.5 mg INH RTBID ml 09/08/23 10/27/23 Calcium Carb (Oyster Shell) 500 mg PO DAILY tab 09/08/23 10/27/23 [[place]-500] Calcium Carbonate [Tums (Calcium 500 mg PO TID PRN tab 09/08/23 10/27/23 Carbonate 500mg)] Gabapentin [Neurontin] 300 mg PO TID cap 09/08/23 10/27/23 Losartan [Cozaar] 50 mg PO DAILY tab 09/08/23 10/27/23 methocarbamoL [Robaxin] 500 mg PO Q6HR PRN tab 09/08/23 10/27/23 Mupirocin 2% Oint [Bactroban 2% 1 applic TOP TID #15 gm 09/20/23 10/27/23 Oint] hydroCHLOROthiazide [Hydrodiuril] 25 mg PO DAILY #15 tablet 09/20/23 10/27/23 HYDROcod/ACETAM 5/325 [[place] 5/325] 1 ea PO Q6H PRN #14 tablet 10/27/23 levoFLOXacin [Levofloxacin] 750 mg PO DAILY 10 Days #10 tablet 12/01/23 Ketorolac [Toradol] 10 mg PO Q6H PRN #20 tablet 12/11/23 - Allergies Allergies/Adverse Reactions: Allergies Allergy/AdvReac Type Severity Reaction Status Date / Time No Known Drug Allergies Allergy Verified 11/03/23 23:38 - Social History Does the pt smoke?: Yes Smoking Status: Current every day smoker Does the pt drink ETOH?: Yes Does the pt have substance abuse?: Yes - Immunizations Immunizations are current?: No Immunizations: TDAP >10years/unknown - POLST Patient has POLST: No POLST Status: Full Code PD ED PE NORMAL - Vitals Vital signs reviewed: Yes - General General: Alert and oriented X 3, No acute distress, Other (disheveled appearing) - HEENT HEENT: Atraumatic, PERRL, EOMI - Neck Neck: Supple, no meningeal sign - Derm Derm: Normal color, Warm and dry, Other (discoloration to BL LE c/w PVD. no erythema or warmth to suggest cellulitis. LLE calf ulcer has granulation tissue filling in and appears to be improved since his last ED visit to see me.) - Extremities Extremities: Other (2+ BL LE DP pulses. normal sensation and movement. tender with ROM of R hip. ) - Neuro Neuro: No motor deficit, No sensory deficit Results - Vitals Vitals: Vital Signs - 24 hr 12/11/23 01:53 Temperature 36.9 C Heart Rate 106 H Respiratory 18 Rate Blood Pressure 131/70 H O2 Saturation 95 Oxygen O2 Source Room air PD Medical Decision Making - ED course ED course: 58yM p/w chronic AVN and chronic pain of R hip as well as BL LE swelling and discoloration and LLE ulcer related to PVD. dressings were changed and bacitracin applied. Plan to f/u in wound clinic. pain improved s/p IM toradol. return precautions given. Departure - Departure Disposition: 01 Home, Self Care Clinical Impression: Pain in extremity Condition: Stable Prescriptions: Ketorolac [Toradol] 10 mg PO Q6H PRN #20 tablet PRN Reason: Pain Comments: You were seen in the emergency department for wound check. It looks like it's healing well. The dressing was changed and you received a shot of toradol, a strong anti-inflammatory medicine. Prescription was sent to [facility] in [place]. Please take with food to avoid stomach ulcers. Please do not take wi thin 6 hours of other NSAIDs like naproxen, indomethocin, advil, or ibuprofen. Please follow-up with your primary care provider and wound clinic and return to the emergency department if you have any new or worsening symptoms or other concerns.
[2023-12-11] MEDS: KETOROLAC 30 MG/ML VIAL IM STA (02:13)
[2023-12-11] MEDS: BACITRACIN ZINC OINT 1 PACKET TOP STA (02:18)
== END 2023-12-11 02:25 | disposition home or self-care (01) ==
LOC: EDUNIT# → ED 01:47
DX: L97.229 Non-pressure chronic ulcer of left calf with unspecified severity (principal); I73.9 Peripheral vascular disease, unspecified; F17.200 Nicotine dependence, unspecified, uncomplicated
CPT/HCPCS: 96372; 99283

== ENCOUNTER 2023-12-19 10:09 | Outpatient (CLI) | payer MEDICAID | END 2023-12-19 23:59 | disposition critical access hospital (66) | LOC: EMS 10:09 | DX: L03.116 Cellulitis of left lower limb (principal); L03.115 Cellulitis of right lower limb; S81.802A Unspecified open wound, left lower leg, initial encounter | CPT/HCPCS: A0425; A0429; A0999 ==

== ENCOUNTER 2023-12-19 10:42 | Emergency (ER) | payer MEDICAID ==
--- NOTE | 2023-12-19 10:50 | ED Physician Documentation ---
History of Present Illness - Stated complaint Stated Complaint: LLE WOUND - History obtained from History obtained from: Patient - Additonal information Additional information: 58-year-old gentleman with alcoholism, bipolar disorder, hypertension. He has long history of venous stasis and cellulitis in the legs. Has been to wound care for this recently and had a culture on the 11th of this month demonstrating fairly brown resistant staph and Enterococcus. He is not taking any meds for this. Admits to drinking alcohol. PD PAST MEDICAL HISTORY - Past Medical History Cardiovascular: Hypertension Respiratory: Other, Asthma Neuro: None Endocrine/Autoimmune: None GI: GERD, Other : Incontinence HEENT: Chronic sinusitis Psych: Bipolar disorder, Depression, Anxiety, Post traumatic stress disorder, Claustrophobia Musculoskeletal: Other Derm: Eczema, Rosacea - Past Surgical History Past Surgical History: Yes General: Hiatal hernia repair - Present Medications Home Medications: Ambulatory Orders Medication Instructions Recorded Confirmed Albuterol Sulf [Ventolin Hfa 1 - 2 puffs INH Q4HR PRN #1 ea 08/20/23 10/27/23 Inhaler] Atorvastatin Calcium 40 mg PO QPM 09/02/23 10/27/23 Fluticasone Propion/Salmeterol 1 puffs INH BID 09/02/23 10/27/23 [Fluticasone-Salmeterol 250-50] Naproxen 500 mg PO DAILY PRN 09/02/23 10/27/23 ARIPiprazole [Abilify] 10 mg PO DAILY tab 09/08/23 10/27/23 Budesonide [Pulmicort] 0.5 mg INH RTBID ml 09/08/23 10/27/23 Calcium Carb (Oyster Shell) 500 mg PO DAILY tab 09/08/23 10/27/23 [[place]-500] Calcium Carbonate [Tums (Calcium 500 mg PO TID PRN tab 09/08/23 10/27/23 Carbonate 500mg)] Gabapentin [Neurontin] 300 mg PO TID cap 09/08/23 10/27/23 Losartan [Cozaar] 50 mg PO DAILY tab 09/08/23 10/27/23 methocarbamoL [Robaxin] 500 mg PO Q6HR PRN tab 09/08/23 10/27/23 Mupirocin 2% Oint [Bactroban 2% 1 applic TOP TID #15 gm 09/20/23 10/27/23 Oint] hydroCHLOROthiazide [Hydrodiuril] 25 mg PO DAILY #15 tablet 09/20/23 10/27/23 HYDROcod/ACETAM 5/325 [[place] 5/325] 1 ea PO Q6H PRN #14 tablet 10/27/23 levoFLOXacin [Levofloxacin] 750 mg PO DAILY 10 Days #10 tablet 12/01/23 Ketorolac [Toradol] 10 mg PO Q6H PRN #20 tablet 12/11/23 Furosemide [Lasix] 20 mg PO DAILY #7 tablet 12/19/23 Linezolid [Zyvox] 600 mg PO BID #20 tablet 12/19/23 Magnesium Oxide [Mag Ox] 400 mg PO 0800 #7 tablet 12/19/23 Potassium Chloride 10 meq PO DAILY #7 tab 12/19/23 - Allergies Allergies/Adverse Reactions: Allergies Allergy/AdvReac Type Severity Reaction Status Date / Time No Known Drug Allergies Allergy Verified 11/03/23 23:38 - Social History Does the pt smoke?: Yes Smoking Status: Current every day smoker Does the pt drink ETOH?: Yes Does the pt have substance abuse?: Yes - Immunizations Immunizations are current?: No Immunizations: TDAP >10years/unknown - POLST Patient has POLST: No POLST Status: Full Code PD ED PE NORMAL - Vitals Vital signs reviewed: Yes - General General: Alert and oriented X 3, No acute distress - Extremities Extremities: Other (He has bilateral leg edema with weepy venous stasis and cellulitis to both legs. It stops below the knees on both sides.) - Neuro Neuro: Alert and oriented X 3, Normal speech Results - Vitals Vitals: Oxygen O2 Source Room air PD Medical Decision Making - ED course ED course: He presents with a chronic leg infection, recent culture reviewed and only 1 oral option is available which is linezolid. He would also benefit from some diuresis looking at his legs and follow-up in wound care. Departure - Departure Disposition: 01 Home, Self Care Clinical Impression: Lymphedema, not elsewhere classified, Leg edema, Cellulitis of lower extremity Condition: Stable Record reviewed to determine appropriate education?: Yes Instructions: Cellulitis Dc Prescriptions: Furosemide [Lasix] 20 mg PO DAILY #7 tablet Magnesium Oxide [Mag Ox] 400 mg PO 0800 #7 tablet Potassium Chloride 10 meq PO DAILY #7 tab Linezolid [Zyvox] 600 mg PO BID #20 tablet Comments: I sent prescriptions for diuretics and antibiotics along with some potassium and magnesium supplementation that you should probably take along with the diuretics to the [facility] in [place]. The culture from 11 days ago grew 2 organisms, 1 of which was only sensitive to just a couple of antibiotics. Obviously the 1 I am prescribing is 1 of those. You should refrain from drinking alcohol. Follow-up with wound care this week. Return for new or worsening symptoms.
[2023-12-19 10:53] VITALS: BP 143/81; O2SAT 98
== END 2023-12-19 11:38 | disposition home or self-care (01) ==
LOC: ED 10:42
DX: I87.8 Other specified disorders of veins (principal); I89.0 Lymphedema, not elsewhere classified; R60.0 Localized edema; L03.116 Cellulitis of left lower limb; L03.115 Cellulitis of right lower limb; B95.2 Enterococcus as the cause of diseases classified elsewhere; B95.8 Unspecified staphylococcus as the cause of diseases classified elsewhere; Z16.30 Resistance to unspecified antimicrobial drugs; F17.200 Nicotine dependence, unspecified, uncomplicated; F10.20 Alcohol dependence, uncomplicated
CPT/HCPCS: 99283

== ENCOUNTER 2023-12-22 14:01 | Emergency (ER) | payer MEDICAID ==
--- NOTE | 2023-12-22 14:10 | ED Physician Documentation ---
History of Present Illness - Stated complaint Stated Complaint: WOUND CHECK - History obtained from History obtained from: Patient - Additonal information Additional information: 58-year-old gentleman has chronic lymphedema and cellulitis. Based on recent cultures I saw him 3 days ago and put him on linezolid. He was supposed to be in wound care today at 2 PM but came here instead. He is not sure if he is better or worse. He only filled the Lasix and potassium. PD PAST MEDICAL HISTORY - Past Medical History Cardiovascular: Hypertension Respiratory: Other, Asthma Neuro: None Endocrine/Autoimmune: None GI: GERD, Other : Incontinence HEENT: Chronic sinusitis Psych: Bipolar disorder, Depression, Anxiety, Post traumatic stress disorder, Claustrophobia Musculoskeletal: Other Derm: Eczema, Rosacea - Past Surgical History Past Surgical History: Yes General: Hiatal hernia repair - Present Medications Home Medications: Ambulatory Orders Medication Instructions Recorded Confirmed Albuterol Sulf [Ventolin Hfa 1 - 2 puffs INH Q4HR PRN #1 ea 08/20/23 12/22/23 Inhaler] Atorvastatin Calcium 40 mg PO QPM 09/02/23 12/22/23 Fluticasone Propion/Salmeterol 1 puffs INH BID 09/02/23 12/22/23 [Fluticasone-Salmeterol 250-50] Naproxen 500 mg PO DAILY PRN 09/02/23 10/27/23 ARIPiprazole [Abilify] 10 mg PO DAILY tab 09/08/23 10/27/23 Budesonide [Pulmicort] 0.5 mg INH RTBID ml 09/08/23 12/22/23 Calcium Carb (Oyster Shell) 500 mg PO DAILY tab 09/08/23 12/22/23 [Oysco-500] Gabapentin [Neurontin] 300 mg PO TID cap 09/08/23 12/22/23 Losartan [Cozaar] 50 mg PO DAILY tab 09/08/23 10/27/23 hydroCHLOROthiazide [Hydrodiuril] 25 mg PO DAILY #15 tablet 09/20/23 12/22/23 Furosemide [Lasix] 20 mg PO DAILY #7 tablet 12/19/23 12/22/23 Linezolid [Zyvox] 600 mg PO BID #20 tablet 12/19/23 Potassium Chloride 10 meq PO DAILY #7 tab 12/19/23 12/22/23 Magnesium Oxide [Mag Ox] 400 mg PO DAILY #7 tablet 12/21/23 12/22/23 Linezolid [Zyvox] 600 mg PO BID #20 tablet 12/22/23 oxyCODONE [Roxicodone] 5 mg PO Q4-6H PRN #7 tablet 12/22/23 - Allergies Allergies/Adverse Reactions: Allergies Allergy/AdvReac Type Severity Reaction Status Date / Time No Known Drug Allergies Allergy Verified 11/03/23 23:38 - Social History Does the pt smoke?: Yes Smoking Status: Current every day smoker Does the pt drink ETOH?: Yes Does the pt have substance abuse?: Yes - Immunizations Immunizations are current?: No Immunizations: TDAP >10years/unknown - POLST Patient has POLST: No POLST Status: Full Code PD ED PE NORMAL - Vitals Vital signs reviewed: Yes - General General: Alert and oriented X 3 - Extremities Extremities: Other (Lymphedema with [place] cellulitis of both legs and some drainage.) - Neuro Neuro: Alert and oriented X 3 Results - Vitals Vitals: Vital Signs - 24 hr 12/22/23 14:06 Temperature 36.1 C L Heart Rate 107 H Respiratory 18 Rate Blood Pressure 180/110 H O2 Saturation 95 Oxygen O2 Source Room air PD Medical Decision Making - ED course ED course: Nontoxic 58-year-old gentleman who is not intoxicated although he often has presents with continued lymphedema and leg cellulitis. He missed his appointment wound care today and through no fault of his own it looks like the prescriptions got sent, some to 1 pharmacy and some to another. I made sure to send the prescriptions to [facility] which is his preferred pharmacy. He really needed something for pain and promises not to drink with it. Departure - Departure Disposition: 01 Home, Self Care Clinical Impression: Lymphedema, not elsewhere classified Cellulitis of lower extremity Qualifiers: Laterality: unspecified laterality Qualified Code(s): L03.119 - Cellulitis of unspecified part of limb Condition: Stable Record reviewed to determine appropriate education?: Yes Instructions: ED Infec Skin Cellulitis Prescriptions: oxyCODONE [Roxicodone] 5 mg PO Q4-6H PRN #7 tablet PRN Reason: Pain Linezolid [Zyvox] 600 mg PO BID #20 tablet Comments: Today I made sure your prescriptions went to [facility]. Follow-up with wound care, next available appointment. Return for new or worsening symptoms. Elevate your legs is much as possible. Do not drink or drive while taking prescription narcotics, I am prescribing a short course of narcotic pain medication for you. These are potentially dangerous and addictive medications that should be used carefully. These medications may constipate you. Take an pali-wvq-gkepdbc stool softener (docusate) twice daily with plenty of water while taking these medications. If you go 24 hours without a bowel movement, take qotg-[id number] miralax, per package instructions. Do not drink or drive while taking these medications. If you received narcotic or sedating medications while in the emergency department, do not drive for 24 hours. Store this medication in a safe, secure place and out of reach of children. It is a violation of federal law to give or sell this medication to another person or to use in a manner other than prescribed. The ED will not refill narcotic prescriptions, including prescriptions lost or stolen. To dispose of unwanted medications: 1. [facility] provides a drop box for medication in pill form only (no liquids) 8:00 am to 4:30 p.m. Wednesday-Wednesday in the lobby of the [facility], [address] [place] [address]. Empty pills into ziplock bag before disposal. Call [phone] for information. 2.[employer] is a free service available to all [facility] residents. Go to [email or web address] Note that many narcotic pain relievers also contain Tylenol/acetaminophen. Please ensure that your total dose of acetaminophen from all sources does not exceed 3 g (3000 mg) per day.
[2023-12-22] MEDS: oxyCODONE 5 MG TABLET PO STA (14:20)
[2023-12-22] MEDS: LINEZOLID 600 MG TABLET PO STA (14:26)
[2023-12-22 14:37] VITALS: BP 194/106; O2SAT 96
== END 2023-12-22 14:38 | disposition home or self-care (01) ==
LOC: ED 14:01
DX: I89.0 Lymphedema, not elsewhere classified (principal); L03.116 Cellulitis of left lower limb; L03.115 Cellulitis of right lower limb
CPT/HCPCS: 99281; 99283; A9270